=== PATIENT | female | born 1945 | race Caucasian/White ===

== ENCOUNTER 2016-08-31 19:55 | Inpatient (IN) | payer OTHER, BC ==
[~2016-08-31] VITALS: Ht 162.6 cm; Wt 63.8 kg
[~2016-08-31 19:55] MED LIST: ADVAIR DISKU1 IN; AMIODARONE HCL200 MG PO; BUMEX1 MG PO; CITRUCEL FIBER LAXAT PO; COREG3.125 MG PO; CVS OMEPRAZOLE20 MG PO; DIGITEK0.125 MG PO; DOCUSATE SODIU250 MG PO; FERROUS SULFAT324 M1 PO; IPRATROPIUM BR0.02 % IN; KLOR-CON 1010 MEQ PO; LEVALBUTEROL IN; LEVOTHYROXINE50 MCG PO; LORAZEPAM0.5 MG PO; MAG-OX 400400 MG PO; MEPERIDINE HCL50 MG PO; METOLAZONE5 MG PO; MICRO-K 10 EQU10 MEQ PO; MIRAPEX0.25 MG PO; MYRBETRIQ25 MG PO; NEURONTIN300 MG PO; NITROSTAT0.4 MG SL; OXAYDO5 MG PO; PRAVACHOL20 MG PO; PROAIR HFA IN; SPIRIVA18 MCG INH; SPIRONOLACTONE25 MG PO; SYMBICORT1 AE1 IN; TOPROL XL25 MG PO; TORSEMIDE10 MG PO; ZESTRIL2.5 MG PO; ZOLOFT100 MG PO
--- NOTE | 2016-08-31 20:58 | ED ORDER SUMMARY ---
..... Patient: ROYCE HOLLEY OrderSheet [facility] VisitID: [id number] [address] [place] [address] 71y, F Registration Date/Time: 08/31/2016 ORDER SHEET Weight: 61.2 kg (stated) Allergies: Aspirin, Ibuprofen, Tylenol GENERAL ORDERS: Dethistler Operator (Continuous) (20:27 08/31/2016 Dmitri SHRESTHA) (20:29 AMcQuoid ER Tech1) (20:29 KWilliams R.N.) Chest 1V Urgent (20:27 08/31/2016 Dmitri SHRESTHA) (20:32 Dianna) Cardiac Panel Stat (20:28 08/31/2016 Dmitri SHRESTHA) (20:29 KWilliams R.N.) PT with INR Urgent (20:08/31/2016 Dmitri SHRESTHA) (20:29 KWilliams R.N.) UA-Culture if indicated Urgent (20:28 08/31/2016 Dmitri SHRESTHA) (20:29 KWilliams R.N.) Oxygen (2 L/min) (NC) (20:28 08/31/2016 Dmitri SHRESTHA) (20:29 AMcQuoid ER Tech1) (20:29 KWilliams R.N.) Pulse oximeter (20:28 08/31/2016 Dmitri SHRESTHA) (20:29 AMcQuoid ER Tech1) (20:29 KWilliams R.N.) EKG - ER Stat (20:28 08/31/2016 Dmitri SHRESTHA) (20:29 AMcQuoid ER Tech1) (20:29 KWilliams R.N.) Type & Cross (upper GI bleed) (severe anemia) Urgent (20:42 08/31/2016 Dmitri SHRESTHA) (20:46 AMcQuoid ER Tech1) Blood Culture (No) (N/A) Urgent (21:16 08/31/2016 Nathan Mcmahon verbal order read back to Dmitri SHRESTHA) (21:22 Dianna) - (Transfuse 2 units packed RBCs.) (21:50 08/31/2016 Dmitri SHRESTHA) MEDICATION ORDERS: Albuterol Neb Tx 2.5 mg (NOW) (20:51 08/31/2016 Dmitri SHRESTHA) (20:56 Nathan R.N.) IV FLUIDS: IV NS : initial bolus 250 mL (1000 mL/hr), then 50 mL/hr (NOW) (20:28 08/31/2016 Dmitri SHRESTHA) (20:35 Nathan R.N.) IV NS : initial bolus 250 mL (1000 mL/hr), then none - for X1 (NOW) (20:50 08/31/2016 Nathan R.N. verbal order read back to Dmitri SHRESTHA) (20:51 Nathan R.N.) Rocephin IV 2 gm/50mL (NOW) (20:53 08/31/2016 Dmitri SHRESTHA) (Ack 21:00 Nathan R.N.) (21:08 Nathan R.N.) Zithromax IV 500 mg/250 mL (NOW) (20:54 08/31/2016 Dmitri SHRESTHA) (Ack 21:00 Nathan R.N.) (21:40 Nathan R.N.) ORDER SHEET NOTES: [Electronically signed by Bri Del Toro R.N. (22:29 08/31/2016)] [Electronically signed by Annmarie Gonzalez MD (04:20 09/07/2016)] [Electronically locked/signed by Bri DelT oro R.N. (22:08/31/2016)]
--- NOTE | 2016-08-31 20:58 | ED CLINICAL REPORT ---
Clinical Report - Physicians/Mid Levels [facility] [address] [place] [address] 08/31/2016 19:57 Patient: ROYCE HOLLEY Time Seen: 20:07. Arrived- By private vehicle. Historian- patient. HISTORY OF PRESENT ILLNESS Chief Complaint: WEAKNESS and NEAR-SYNCOPE. Not described as a sense of rotation, movement or falling. Described as feeling light-headed and weak all over. Described as a moderate sense of confusion (daughter reports this about pt). This started about 2 weeks ago, but worse over the past few days. and is still present. Severity described as moderate at its maximum. When seen in the E.D., severity described as moderate. Modifying factors- worsened by standing up. Relieved by rest. No nausea, vomiting, hearing loss or tinnitus. (PT reports having black stools for several days, and daughter feels the pt is pale.). Similar symptoms previously: Recent medical care: Not recently seen/assessed. REVIEW OF SYSTEMS No headache, double vision, fainting episodes, head injury or chest pain. No palpitations, numbness, bloody stools, fever or sore throat. No cough, abdominal pain, diarrhea, difficulty with urination or skin rash. No enlarged lymph nodes, chills or joint pain. The patient has had weakness, and black stools. No difficulty walking. She has had moderate difficulty breathing (chronically). All systems otherwise negative, except as recorded above. PAST HISTORY Problems: Hypoxia. Asthma. Hypothyroidism. Lifestyle / Substance Problems. Ovarian Cancer. Depression. Hypercholesterolemia. Restless Legs Syndrome. Congestive Heart Failure. Syncope. Dehydration. Substance Abuse. Hyperlipidemia. Cancer. Osteoporosis. Valvular Heart Disease. Hyponatremia. Hypertension. Anxiety Reaction. Peptic Ulcer Disease. Myocardial Infarction. Coronary Artery Disease. Immunizations. Additional Surgeries: Hysterectomy. Liver Lac repair. Shoulder Surgery. Allergies: Aspirin. Ibuprofen. Tylenol. SOCIAL HISTORY Smoker- current status unknown. Alcohol use. Patient is a recovering alcoholic. No drug use. ADDITIONAL NOTES The nursing notes have been reviewed. PHYSICAL EXAM Vital Signs: 08/31/2016 20:08 BP: 113/34. HR: 50. RR: 22. O2 saturation: 88%. Temp: 98.2 F. Have been reviewed. Appearance: Alert. No acute distress. Eyes: Pupils equal, round and reactive to light. No nystagmus. Extraocular movements normal. ENT: Normal ENT inspection. Moist mucous membranes. Neck: Normal inspection. CVS: Normal heart rate and rhythm. Heart sounds normal. Pulses normal. Respiratory: No respiratory distress. Breath sounds normal. Abdomen: Soft and nontender. Back: Normal inspection. No CVA tenderness. Rectal: Weakly heme-positive stool. (POC test reference range: negative). Skin: Skin warm and dry. Slight pallor. No rash. Normal skin turgor. Extremities: Extremities exhibit normal ROM. No lower extremity edema. Neuro: Alert. Mood/affect normal. Speech normal. Cranial nerves normal (as tested). No motor deficit. No sensory deficit. LABS, X-RAYS, AND EKG EKG: EKG time: (2020). Rate: 45. Bradycardia. Sinus bradycardia. Normal P waves. Normal AURELIANO. Normal QRS complex. Normal axis. Normal QT and QTc. Non-specific ST segment / T wave abnormalities. Changes present when compared to prior EKG. (improved from 11/15/15). The study has been interpreted contemporaneously by me. The study has been independently viewed by me. The EKG appears to be a good tracing. I agree with and confirm the computer reading of the EKG. Rhythm Strip #1: Time: (2018). Rate= 54. Sinus bradycardia. Regular rhythm. Narrow QRS complexes. No ectopy. Conduction normal. Normal ST segments and T waves. The study was interpreted by me. Chest X-ray: Medium-sized infiltrate in the left lower lobe. Consistent with pneumonia. Normal heart size. Mediastinum normal. Great vessels normal. Soft tissues normal. No fracture. No bony lesion present. Views: AP (portable). Technique: good. The X-rays were independently viewed by me and interpreted contemporaneously by me. A comparison with prior films reveals that the findings are new. Laboratory Tests: UA-Culture if indicated: (PHILIPPE: 08/31/2016 20:15) ( MsgRcvd 08/31/2016 21:02) Final results Test Result Flag Units (Reference) URINE COLOR YELLOW URINE APPEARANCE CLEAR URINE GLUCOSE NEGATIVE (NEGATIVE) URINE BILIRUBIN NEGATIVE (NEGATIVE) URINE KETONE NEGATIVE (NEGATIVE) URINE SPECIFIC GRAVITY 1.010 (1.010-1.030) URINE PH 5.5 (5.0-8.0) URINE PROTEIN NEGATIVE (NEGATIVE) URINE UROBILINOGEN 0.2 EU/dL (0.2-1.0) URINE NITRITE NEGATIVE (NEGATIVE) URINE BLOOD NEGATIVE (NEGATIVE) URINE LEUK ESTERASE NEGATIVE (NEGATIVE) URINE RBC NONE SEEN rbc/hpf (0-1) URINE WBC NONE SEEN wbc/hpf (0-1) URINE EPITHELIAL CELLS RARE EPI/hpf (0-5) URINE BACTERIA NONE SEEN (NONE SEEN) URINE COMMENT CULT NOT INDICATED 1+ AMORPHOUSURINE CULTURES ARE SET-UP BASED ON THE FOLLOWING CRITERIA:POSITIVE NITRITEPOSITIVE LEUKOCYTE ESTERASEGREATER THAN 10 WHITE BLOOD CELLSMODERATE (2+) OR GREATER BACTERIA CBC w Diff: (PHILIPPE: 08/31/2016 20:15) ( [facility] 08/31/2016 20:40) Final results Test Result Flag Units (Reference) WHITE BLOOD COUNT 13.5 H K/uL (4.5-11.5) RED BLOOD COUNT 2.39 L M/uL (4.00-5.20) HEMOGLOBIN 7.1 L gm/dL (12.0-16.0) HEMATOCRIT 21.5 L % (36.0-46.0) MEAN CELL VOLUME 90 fL (80-100) MEAN CORPUSCULAR HGB 30 pg (26-34) MEAN CORPUSCULAR HGB CONC 33 g/dL (31-37) RED CELL DISTRIBUTION WIDTH 17.3 H % (11.6-14.8) PLATELET COUNT 329 K/uL (150-400) NEUTROPHIL % 81.7 H % (50-75) LYMPH % 9.5 L % (25-40) MONO % 6.3 % (3-14) EOSINOPHIL % 2.2 % (0-4) BASOPHIL % 0.3 % (0-2) PT with INR: (PHILIPPE: 08/31/2016 20:15) ( [facility] 08/31/2016 20:53) Final results Test Result Flag Units (Reference) INR 1.1 (0.8-1.2) Low Intensity Therapy: INR 1.5-2.0 PT range 18.5-23.1Mod.Intensity Therapy: INR 2.0-3.0 PT range 23.1-31.5High Intensity Therapy: INR 2.5-3.5 PT range 27.4-35.5High Intensity Therapy 2: INR 3.0-4.0 PT range 31.5-39.3 CHEM 13 PANEL: (PHILIPPE: 08/31/2016 20:15) ( MsgRcvd 08/31/2016 20:56) Final results Test Result Flag Units (Reference) GLUCOSE 125 H mg/dL (70-110) BUN 83 *H mg/dL (7-18) CRITICAL RESULTS CALLEDCalled to CARLOS VACA RN 08/31/162053Were 2 patient identifiers used? YWas the result read back? Y CREATININE 2.6 H mg/dL (0.6-1.3) Estimated GFR 19.18 mL/min Estimated GFR- 23.24 mL/min Note: Persistent reduction over 3 months in eGFR<60 mL/min/1.73 m2 defines CKD. Patients with eGFR values>=60 mL/min/1.73 m2 may also have CKD if evidence ofpersistent proteinuria. Additional information may be foundat www.kidney.org. SODIUM 130 L mmol/L (136-145) POTASSIUM 4.3 mmol/L (3.5-5.1) CHLORIDE 93 L mmol/L (98-107) CARBON DIOXIDE 29 mmol/L (21-32) CALCIUM 8.5 mg/dL (8.5-10.1) TOTAL PROTEIN 8.3 H g/dL (6.4-8.2) ALBUMIN 2.6 L g/dL (3.3-5.0) BILIRUBIN, TOTAL 0.2 mg/dL (0.0-1.0) ALKALINE PHOSPHATASE 125 H U/L (46-116) AST (SGOT) 30 U/L (15-37) ALT (SGPT) 26 U/L (12-78) MAGNESIUM 2.1 mg/dL (1.8-2.4) CPK 254 U/L (24-260) TROPONIN I <0.05 ng/mL (0.00-1.5) TROPONIN REFERENCE RANGE:<0.1 NEGATIVE0.1-1.5 INDETERMINANT>1.5 POSITIVE . Pulse Oximetry: 08/31/2016 20:08 O2 saturation: 88%. (FIO2 - room air). Interpretation: normal. PROGRESS AND PROCEDURES Course of Care: Pt was treated for her sx, and worked up for her GI bleeding and general fatigue. She was given an albuterol neb, which did improve her breathing. She was given Rocephin and Zithromax for her pneumonia, and a blood transfusion for her severe anemia. I did feel the pt should be admitted to the hospital, and Dr. Brandon did come see her in the ED. Discussed case with patient's primary care provider, (Roma). Reviewed test results and need for additional work-up. Agreed upon treatment plan and decision to admit. Health care provider will see patient in hospital. Patient and mother counseled in person regarding the patient's stable but serious condition, test results, diagnosis and need for admission. Concerns were addressed. Old medical records reviewed. Disposition: Admitted. Condition: stable and serious. CLINICAL IMPRESSION Major GI bleed with hematochezia. Bacterial pneumonia. Vital signs recorded and reviewed; empiric antibiotics given in the ED. No respiratory failure or sepsis. Acute exacerbation of COPD. (Electronically signed by Annmarie Gonzalez MD 09/07/2016 4:20)
--- NOTE | 2016-08-31 20:58 | ED NURSING NOTES ---
Clinical Report - Nurses [facility] [address] [place] [address] 08/31/2016 19:57 Patient: ROYCE HOLLEY TRIAGE Triage time 20:08. Acuity: LEVEL 3. Chief Complaint: ALTERED MENTAL STATUS and (per family: pt. has been c/o having a hard time peeing and daughter states she seems more confused than her baseline.). Alert. No acute distress. SEPSIS SCREEN: Sepsis Screen. Negative (no infection suspected/documented). AMELIA COMA SCORE: Hamill Coma Scale: 14- eyes open spontaneously (4); best verbal response- disoriented (4); best motor response- obeys commands (6). --20:16 Bri Del Toro R.N. 20:08 08/31/16. BP: 113/34. HR: 50. RR: 22. O2 saturation: 88%. Temp: 98.2 F. Pain level now 0/10. --20:16 Bri Del Toro R.N. ( 35 min. reviewing and charting medication list.). --21:28 Bri Del Toro R.N. Weight: 61.2 kg stated. Height/Length: 63 inches Per Patient. BMI: 23.9. --20:12 Bri Del Toro R.N. Medications Acetaminophen Oral 325 mg, 2x a day as needed. --20:54 Bri Del Toro R.N. Amiodarone HCL Oral 200 mg, daily. --20:54 Bri Del Toro R.N. Albuterol Sulfate Oral, Q3-4H. --20:55 Bri Del Toro R.N. Aspirin Oral (Tablet Chewable 81 mg). --20:55 Bri Del Toro R.N. Bumetanide Oral 1 mg, 1 1/2 Q daily. --20:57 rBi Del Toro R.N. BusPIRone HCl Oral (Tablet 7.5 mg) 1 tablet, BID. --20:57 Bri Del Toro R.N. Carvedilol Oral (Tablet 3.125 mg) 1 tablet, Q12H. --20:58 Bri Del Toro R.N. Combivent Respimat Inhalation (Aerosol Solution 20-100 mcg/act) QID. --20:58 Bri Del Toro R.N. Diazepam Oral 2 mg, at bedtime. --20:58 Bri Del Toro R.N. Digoxin Oral (Tablet 125 mcg) 1 tablet, daily. --20:58 Bri Del Toro R.N. Ferrous Sulfate Oral 325 mg, daily. --20:59 Bri Del Toro R.N. Furosemide Oral 40 mg, daily. --20:59 Bir Del Toro R.N. Gabapentin Oral 300 mg, QID. --20:59 Bri Del Toro R.N. Levothyroxine Sodium Oral (Tablet 50 mcg) 1 tablet, daily. --21:12 Bri Del Toro R.N. Lisinopril Oral 5 mg, Q12H. --21:12 Bri Del Toro R.N. Magnesium Oxide Oral (Tablet 400 mg) 1 tablet, BID. --21:13 Bri Del Toro R.N. Metolazone Oral 2.5 mg, Q mornings: mon, mon, . --21:13 Bri Del Toro R.N. Metoprolol Succinate ER Oral 25mg BID. --21:14 Bri Del Toro R.N. Metoprolol Tartrate Oral 50 mg, 2-3 times daily. --21:14 Bri Del Toro R.N. Omeprazole Oral 40 mg, daily. --21:14 Bri Del Toro R.N. OxyCODONE HCl Oral 5 mg, noon, 4pm and 2 tabs at bedtime. --21:20 Bri Del Toro R.N. Potassium Chloride ER Oral (Capsule Extended Release 10 meq) 1 capsule, on mon, mon, monday. --21:24 Bri Del Toro R.N. pramipexole 0.5mg x1 tab three times daily. --21:24 Bri Del Toro R.N. Pravastatin Sodium Oral 20 mg, at bedtime. --21:24 Bri Del Toro R.N. ProAir HFA Inhalation. --21:24 Bri Del Toro R.N. Sertraline HCl Oral 100 mg 1 1/2 daily. --:25 Bri Del Toro R.N. Spiriva HandiHaler Inhalation. --21:26 Bri Del Toro R.N. Spironolactone Oral 25 mg. --:26 Bri Del Toro R.N. Symbicort Inhalation. --21: Bri Del Toro R.N. Torsemide Oral 20 mg x2 tabs daily. --: Bri Del Toro R.N. Vitamin D. --:27 Bri Del Toro R.N. Allergies Aspirin. Ibuprofen. Tylenol. --20:15 Bri Del Toro R.N. History Arrived by private vehicle. Historian: patient. Accompanied by family. Primary physician (Roma). This started yesterday. 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 PAST MEDICAL HX: Immunizations: up-to-date. SOCIAL HX: Light tobacco smoker (cigarette)- less than 1/2 a pack per day. Alcohol use. Patient is a recovering alcoholic. No drug use. ABUSE ASSESSMENT: No report of abuse. NUTRITIONAL RISK ASSESSMENT: The nutritional risk assessment revealed no deficiencies. LEARNING NEEDS ASSESSMENT: The learning needs assessment revealed no barriers. FUNCTIONAL ASSESSMENT: Functional assessment performed: requires total care with the activities of daily living; uses walker and cane; cognitive impairment- senile dementia. --20:16 Bri Del Toro R.N. PROBLEMS: Hypoxia. Asthma. Hypothyroidism. Lifestyle / Substance Problems. Headaches. Ovarian Cancer. Depression. Hypercholesterolemia. Restless Legs Syndrome. Congestive Heart Failure. Syncope. Dehydration. Substance Abuse. Hyperlipidemia. Cancer. Osteoporosis. Valvular Heart Disease. UTI - Urinary Tract Infection. Anemia. Hyponatremia. Hypertension. Anxiety Reaction. Peptic Ulcer Disease. Myocardial Infarction. Coronary Artery Disease. Lumbar Strain. Fall. Bronchitis. --20:15 Bri Del Toro R.N. ADDITIONAL SURGERIES: Hysterectomy. Liver Lac repair. Shoulder Surgery. --20:15 Bri Del Toro R.N. Interventions ID band on patient. Transported via wheelchair. --20:16 Bri Del Toro R.N. PHYSICAL ASSESSMENT To room via wheelchair. GENERAL / NEURO / PSYCH: Alert. The patient is disoriented (pt. is alert but confused.). RESPIRATORY: Respirations not labored. CVS: Capillary refill less than 2 seconds. SKIN: Skin is pale. Skin is warm and dry. --20:16 Bri Del Toro R.N. NURSING PROGRESS NOTES Oxygen administered by nasal cannula at 2 liters. quality assurance monitor final, pulse oximeter and NIBP monitor placed on patient; cardiac technician- Lead II; monitor alarms on. Patient gowned. Head of bed elevated. Two patient identifiers checked. Call light placed in reach. Side rails up x 2. Bed placed in lowest position. Brakes of bed on. Patient ready for evaluation- chart flagged. --20:16 Bri Del Toro R.N. Portable chest x-ray ordered, performed and shown to the ED physician. --20:33 Bri Del Toro R.N. 20:35 08/31/2016 Site #1 started via IV in the left antecubital space with an 20g angiocath, with aseptic technique and good blood return; one attempt. Blood drawn: rainbow set. Labeled in the presence of the patient and sent to the lab. Saline lock flushed with 10 mL saline (pt. blood banded. Accessed done by FRANCESCA Fenton). --20:35 Bri Del Toro R.N. 20:35 08/31/2016 Started bag #1 1000 mL IV Fluids IV NS (Saline); at 1000 mL/hr over 15 minute(s) via site #1 via IV pump. Allergies verified and confirmed 5 rights. IV patency established. IV site checked: no pain, redness, or swelling. IV flushed thoroughly pre- and post-medication administration. --20:35 Bri Del Toro R.N. EKG time: (2020). EKG was ordered, performed by a tech and shown to the ED physician. --20:35 Bri Del Toro R.N. 20:50 08/31/2016 Started bag #1 750 mL IV Fluids IV NS (Saline); at 1000 mL/hr over 15 minute(s) via site #1 via IV pump. Allergies verified and confirmed 5 rights. IV patency established. IV site checked: no pain, redness, or swelling. IV flushed thoroughly pre- and post-medication administration. --20:51 Bri Del Toro R.N. 20:50 08/31/2016 IV Fluids IV NS Discontinued: bag #1. Total amount infused: 250 mL. IV patency established. IV site checked: no pain, redness, or swelling. IV flushed thoroughly. --20:50 Bri Del Toro R.N. Critical value relayed to ED by hatchery laborer. Critical value received by Bri Helton RN. BUN: 83. Critical value read back. Verified lab result and patient ID. Patient ID band checked for patient name, birthdate and medical record number: patient confirmed. ED physician notifed of critical value. --20:56 Bri Del Toro R.N. 20:56 08/31/2016 Albuterol Neb TX 2.5 mg given. Given by the respiratory therapist. Allergies verified and confirmed 5 rights. --20:56 Bri Del Toro R.N. 21:08 08/31/2016 Started 2 gm of Rocephin (CefTRIAXone Sodium) IVPB in bag #1 50 mL; at 150 mL/hr over 20 minute(s) via site #1 via IV pump. Allergies verified and confirmed 5 rights. IV patency established. IV site checked: no pain, redness, or swelling. IV flushed thoroughly pre- and post-medication administration. --21:08 Bri Del Toro R.N. ( lab at the bedside for culture draw.). --21:28 rBi Del Toro R.N. 21:40 08/31/2016 Started 500 mg of Zithromax (Azithromycin) IVPB in bag #1 250 mL; at 255 mL/hr over 1 hour(s) via site #1 via IV pump. Allergies verified and confirmed 5 rights. IV patency established. IV site checked: no pain, redness, or swelling. IV flushed thoroughly pre- and post-medication administration. --21:40 Bri Del oTro R.N. 21:40 08/31/16. BP: 102/46. HR: 45. RR: 17. O2 saturation: 97%. --21:40 Bri Del Toro R.N. 22:17 08/31/2016 IV Fluids IV NS Discontinued: bag #1 infused. Total amount infused: 500 mL. IV patency established. IV site checked: no pain, redness, or swelling. IV flushed thoroughly. --22:17 Bri Del Toro R.N. 22:18 08/31/2016 Zithromax IVPB Continued: upon admission at the rate of 255 mL/hr. 100 mL remaining. IV patency established. IV site checked: no pain, redness, or swelling. IV flushed thoroughly. --22:18 Bri Del Toro R.N. DISPOSITION / DISCHARGE Report was given to a nurse via a phone call. Report included patient's care, treatment, medications, reviewed medication reconcilliation, and condition (including any recent changes or anticipated changes). All questions were answered. --22:12 Bri Del Toro R.N. Admitted to Acute Care. --22:12 Bri Del Toro R.N. Patient's personal items; items were placed in belongings bag, given to the patient and transported with the patient. --22:12 Bri Del Toro R.N. 22:15 08/31/16. BP: 98/37. HR: 46. RR: 17. O2 saturation: 9%. Temp: 98.2 F. Pain level now 0/10. --22:18 Bri Del Toro R.N. Departure time: 22:18. --22:18 Bri Del Toro R.N. 22:18 08/31/16. O2 saturation: 97%. --22:18 Bri Del Toro R.N. Locked/Released at 08/31/2016 22:29 by Bri Del Toro R.N.
--- NOTE | 2016-08-31 20:58 | ED ORDER SUMMARY ---
..... Patient: ROYCE HOLLEY OrderSheet [facility] VisitID: [id number] [address] [place] [address] 71y, F Registration Date/Time: 08/31/2016 ORDER SHEET Weight: 61.2 kg (stated) Allergies: Aspirin, Ibuprofen, Tylenol GENERAL ORDERS: Cancer Center Director (Continuous) (20:27 08/31/2016 Dmitri SHRESTHA) (20:29 AMcQuoid ER Tech1) (20:29 KWilliams R.N.) Chest 1V Urgent (20:27 08/31/2016 Dmitri SHRESTHA) (20:32 Dianna) Cardiac Panel Stat (20:28 08/31/2016 Dmitri SHRESTHA) (20:29 KWilliams R.N.) PT with INR Urgent (20:08/31/2016 Dmitri SHRESTHA) (20:29 KWilliams R.N.) UA-Culture if indicated Urgent (20:28 08/31/2016 Dmitri SHRESTHA) (20:29 KWilliams R.N.) Oxygen (2 L/min) (NC) (20:28 08/31/2016 Dmitri SHRESTHA) (20:29 AMcQuoid ER Tech1) (20:29 KWilliams R.N.) Pulse oximeter (20:28 08/31/2016 Dmitri SHRESTHA) (20:29 AMcQuoid ER Tech1) (20:29 KWilliams R.N.) EKG - ER Stat (20:28 08/31/2016 Dmitri SHRESTHA) (20:29 AMcQuoid ER Tech1) (20:29 KWilliams R.N.) Type & Cross (upper GI bleed) (severe anemia) Urgent (20:42 08/31/2016 Dmitri SHRESTHA) (20:46 AMcQuoid ER Tech1) Blood Culture (No) (N/A) Urgent (21:16 08/31/2016 Nathan Mcmahon verbal order read back to Dmitri SHRESTHA) (21:22 Dianna) - (Transfuse 2 units packed RBCs.) (21:50 08/31/2016 Dmitri SHRESTHA) MEDICATION ORDERS: Albuterol Neb Tx 2.5 mg (NOW) (20:51 08/31/2016 Dmitri SHRESTHA) (20:56 Nathan R.N.) IV FLUIDS: IV NS : initial bolus 250 mL (1000 mL/hr), then 50 mL/hr (NOW) (20:28 08/31/2016 Dmitri SHRESTHA) (20:35 Nathan R.N.) IV NS : initial bolus 250 mL (1000 mL/hr), then none - for X1 (NOW) (20:50 08/31/2016 Nathan R.N. verbal order read back to Dmitri SHRESTHA) (20:51 Nathan R.N.) Rocephin IV 2 gm/50mL (NOW) (20:53 08/31/2016 Dmitri SHRESTHA) (Ack 21:00 Nathan R.N.) (21:08 Nathan R.N.) Zithromax IV 500 mg/250 mL (NOW) (20:54 08/31/2016 Dmitri SHRESTHA) (Ack 21:00 Nathan R.N.) (21:40 Nathan R.N.) ORDER SHEET NOTES: [Electronically signed by Bri Del Toro R.N. (22:29 08/31/2016)] [Electronically signed by Annmarie Gonzalez MD (04:20 09/07/2016)] [Electronically locked/signed by Bri eDl Toro R.N. (22:08/31/2016)]
--- NOTE | 2016-08-31 20:58 | ED NURSING NOTES ---
Clinical Report - Nurses [facility] [address] [place] [address] 08/31/2016 19:57 Patient: ROYCE HOLLEY TRIAGE Triage time 20:08. Acuity: LEVEL 3. Chief Complaint: ALTERED MENTAL STATUS and (per family: pt. has been c/o having a hard time peeing and daughter states she seems more confused than her baseline.). Alert. No acute distress. SEPSIS SCREEN: Sepsis Screen. Negative (no infection suspected/documented). AMELIA COMA SCORE: [place] Coma Scale: 14- eyes open spontaneously (4); best verbal response- disoriented (4); best motor response- obeys commands (6). --20:16 Bri Del Toro R.N. 20:08 08/31/16. BP: 113/34. HR: 50. RR: 22. O2 saturation: 88%. Temp: 98.2 F. Pain level now 0/10. --20:16 Bri Del Toro R.N. ( 35 min. reviewing and charting medication list.). --21:28 Bri Del Toro R.N. Weight: 61.2 kg stated. Height/Length: 63 inches Per Patient. BMI: 23.9. --20:12 Bri Del Toro R.N. Medications Acetaminophen Oral 325 mg, 2x a day as needed. --20:54 Bri Del Toro R.N. Amiodarone HCL Oral 200 mg, daily. --20:54 Bri Del Toro R.N. Albuterol Sulfate Oral, Q3-4H. --20:55 Bri Del Toro R.N. Aspirin Oral (Tablet Chewable 81 mg). --20:55 Bri Del Toro R.N. Bumetanide Oral 1 mg, 1 1/2 Q daily. --20:57 Bri Del Toro R.N. BusPIRone HCl Oral (Tablet 7.5 mg) 1 tablet, BID. --20:57 Bri Del Toro R.N. Carvedilol Oral (Tablet 3.125 mg) 1 tablet, Q12H. --20:58 Bri Del Toro R.N. Combivent Respimat Inhalation (Aerosol Solution 20-100 mcg/act) QID. --20:58 Bri Del Toro R.N. Diazepam Oral 2 mg, at bedtime. --20:58 Bri Del Toro R.N. Digoxin Oral (Tablet 125 mcg) 1 tablet, daily. --20:58 Bri Del Toro R.N. Ferrous Sulfate Oral 325 mg, daily. --20:59 Bri Del Toro R.N. Furosemide Oral 40 mg, daily. --20:59 Bri Del Toro R.N. Gabapentin Oral 300 mg, QID. --20:59 Bri Del Toro R.N. Levothyroxine Sodium Oral (Tablet 50 mcg) 1 tablet, daily. --21:12 Bri Del Toro R.N. Lisinopril Oral 5 mg, Q12H. --21:12 Bri Del Toro R.N. Magnesium Oxide Oral (Tablet 400 mg) 1 tablet, BID. --21:13 Bri Del Toro R.N. Metolazone Oral 2.5 mg, Q mornings: mon, mon, . --21:13 Bri Del Toro R.N. Metoprolol Succinate ER Oral 25mg BID. --21:14 Bri Del Toro R.N. Metoprolol Tartrate Oral 50 mg, 2-3 times daily. --21:14 Bri Del Toro R.N. Omeprazole Oral 40 mg, daily. --21:14 Bri Del Toro R.N. OxyCODONE HCl Oral 5 mg, noon, 4pm and 2 tabs at bedtime. --21:20 Bri Del Toro R.N. Potassium Chloride ER Oral (Capsule Extended Release 10 meq) 1 capsule, on mon, mon, monday. --21:24 Bri Del Toro R.N. pramipexole 0.5mg x1 tab three times daily. --21:24 Bri Del Toro R.N. Pravastatin Sodium Oral 20 mg, at bedtime. --21:24 Bri Del Toro R.N. ProAir HFA Inhalation. --21:24 Bri Del Toro R.N. Sertraline HCl Oral 100 mg 1 1/2 daily. --:25 Bri Del Toro R.N. Spiriva HandiHaler Inhalation. --21:26 Bri Del Toro R.N. Spironolactone Oral 25 mg. --:26 Bri Del Toro R.N. Symbicort Inhalation. --21: Bri Del Toro R.N. Torsemide Oral 20 mg x2 tabs daily. --: Bri Del Toro R.N. Vitamin D. --:27 Bri Del Toro R.N. Allergies Aspirin. Ibuprofen. Tylenol. --20:15 Bri Del Toro R.N. History Arrived by private vehicle. Historian: patient. Accompanied by family. Primary physician (Roma). This started yesterday. Treatment PRESS HAND: None. PAST MEDICAL HX: Immunizations: up-to-date. SOCIAL HX: Light tobacco smoker (cigarette)- less than 1/2 a pack per day. Alcohol use. Patient is a recovering alcoholic. No drug use. ABUSE ASSESSMENT: No report of abuse. NUTRITIONAL RISK ASSESSMENT: The nutritional risk assessment revealed no deficiencies. LEARNING NEEDS ASSESSMENT: The learning needs assessment revealed no barriers. FUNCTIONAL ASSESSMENT: Functional assessment performed: requires total care with the activities of daily living; uses walker and cane; cognitive impairment- senile dementia. --20:16 Bri Del Toro R.N. PROBLEMS: Hypoxia. Asthma. Hypothyroidism. Lifestyle / Substance Problems. Headaches. Ovarian Cancer. Depression. Hypercholesterolemia. Restless Legs Syndrome. Congestive Heart Failure. Syncope. Dehydration. Substance Abuse. Hyperlipidemia. Cancer. Osteoporosis. Valvular Heart Disease. UTI - Urinary Tract Infection. Anemia. Hyponatremia. Hypertension. Anxiety Reaction. Peptic Ulcer Disease. Myocardial Infarction. Coronary Artery Disease. Lumbar Strain. Fall. Bronchitis. --20:15 Bri Del Toro R.N. ADDITIONAL SURGERIES: Hysterectomy. Liver Lac repair. Shoulder Surgery. --20:15 Bri Del Toro R.N. Interventions ID band on patient. Transported via wheelchair. --20:16 Bri Del Toro R.N. PHYSICAL ASSESSMENT To room via wheelchair. GENERAL / NEURO / PSYCH: Alert. The patient is disoriented (pt. is alert but confused.). RESPIRATORY: Respirations not labored. CVS: Capillary refill less than 2 seconds. SKIN: Skin is pale. Skin is warm and dry. --20:16 Bri Del Toro R.N. NURSING PROGRESS NOTES Oxygen administered by nasal cannula at 2 liters. monitoring specialist, pulse oximeter and NIBP monitor placed on patient; monitor and storage bin tender- Lead II; monitor alarms on. Patient gowned. Head of bed elevated. Two patient identifiers checked. Call light placed in reach. Side rails up x 2. Bed placed in lowest position. Brakes of bed on. Patient ready for evaluation- chart flagged. --20:16 Bri Del Toro R.N. Portable chest x-ray ordered, performed and shown to the ED physician. --20:33 Bri Del Toro R.N. 20:35 08/31/2016 Site #1 started via IV in the left antecubital space with an 20g angiocath, with aseptic technique and good blood return; one attempt. Blood drawn: rainbow set. Labeled in the presence of the patient and sent to the lab. Saline lock flushed with 10 mL saline (pt. blood banded. Accessed done by FRANCESCA Fenton). --20:35 Bri Del Toro R.N. 20:35 08/31/2016 Started bag #1 1000 mL IV Fluids IV NS (Saline); at 1000 mL/hr over 15 minute(s) via site #1 via IV pump. Allergies verified and confirmed 5 rights. IV patency established. IV site checked: no pain, redness, or swelling. IV flushed thoroughly pre- and post-medication administration. --20:35 Bri Del Toro R.N. EKG time: (2020). EKG was ordered, performed by a tech and shown to the ED physician. --20:35 Bri Del Toro R.N. 20:50 08/31/2016 Started bag #1 750 mL IV Fluids IV NS (Saline); at 1000 mL/hr over 15 minute(s) via site #1 via IV pump. Allergies verified and confirmed 5 rights. IV patency established. IV site checked: no pain, redness, or swelling. IV flushed thoroughly pre- and post-medication administration. --20:51 Bri Del Toro R.N. 20:50 08/31/2016 IV Fluids IV NS Discontinued: bag #1. Total amount infused: 250 mL. IV patency established. IV site checked: no pain, redness, or swelling. IV flushed thoroughly. --20:50 Bri Del Toro R.N. Critical value relayed to ED by general laborer. Critical value received by Bri Helton RN. BUN: 83. Critical value read back. Verified lab result and patient ID. Patient ID band checked for patient name, birthdate and medical record number: patient confirmed. ED physician notifed of critical value. --20:56 Bri Del Toro R.N. 20:56 08/31/2016 Albuterol Neb TX 2.5 mg given. Given by the respiratory therapist. Allergies verified and confirmed 5 rights. --20:56 Bri Del Toro R.N. 21:08 08/31/2016 Started 2 gm of Rocephin (CefTRIAXone Sodium) IVPB in bag #1 50 mL; at 150 mL/hr over 20 minute(s) via site #1 via IV pump. Allergies verified and confirmed 5 rights. IV patency established. IV site checked: no pain, redness, or swelling. IV flushed thoroughly pre- and post-medication administration. --21:08 Bri Del Toro R.N. ( lab at the bedside for culture draw.). --21:28 Bri Del Toro R.N. 21:40 08/31/2016 Started 500 mg of Zithromax (Azithromycin) IVPB in bag #1 250 mL; at 255 mL/hr over 1 hour(s) via site #1 via IV pump. Allergies verified and confirmed 5 rights. IV patency established. IV site checked: no pain, redness, or swelling. IV flushed thoroughly pre- and post-medication administration. --21:40 Bri Del Toro R.N. 21:40 08/31/16. BP: 102/46. HR: 45. RR: 17. O2 saturation: 97%. --21:40 Bri Del Toro R.N. 22:17 08/31/2016 IV Fluids IV NS Discontinued: bag #1 infused. Total amount infused: 500 mL. IV patency established. IV site checked: no pain, redness, or swelling. IV flushed thoroughly. --22:17 Bri Del Toro R.N. 22:18 08/31/2016 Zithromax IVPB Continued: upon admission at the rate of 255 mL/hr. 100 mL remaining. IV patency established. IV site checked: no pain, redness, or swelling. IV flushed thoroughly. --22:18 Bri Del Toro R.N. DISPOSITION / DISCHARGE Report was given to a nurse via a phone call. Report included patient's care, treatment, medications, reviewed medication reconcilliation, and condition (including any recent changes or anticipated changes). All questions were answered. --22:12 Bri Del Toro R.N. Admitted to Acute Care. --22:12 Bri Del Toro R.N. Patient's personal items; items were placed in belongings bag, given to the patient and transported with the patient. --22:12 Bri Del Toro R.N. 22:15 08/31/16. BP: 98/37. HR: 46. RR: 17. O2 saturation: 9%. Temp: 98.2 F. Pain level now 0/10. --22:18 Bri Del Toro R.N. Departure time: 22:18. --22:18 Bri Del Toro R.N. 22:18 08/31/16. O2 saturation: 97%. --22:18 Bri Del Toro R.N. Locked/Released at 08/31/2016 22:29 by Bri Del Toro R.N.
--- NOTE | 2016-08-31 22:14 | DIAGNOSTIC IMAGING REPORT ---
PROCEDURE: XR CHEST 1 VIEW INDICATION: SHORTNESS OF BREATH TECHNIQUE: Portable AP view (2039 hours). COMPARISON: Compared to chest x-ray on 11/24/2015. FINDINGS: Allowing for marked suboptimal inspiration, there is moderate of bibasilar consolidation/pneumonia. Upper lungs are clear. Heart and mediastinum are normal. Thorax is unchanged. IMPRESSION: 1. Suboptimal inspiration. 2. Moderate bibasilar atelectasis/pneumonia. (e.g., aspiration, bacterial).
[2016-08-31] MEDS ORDERED: TYLENOL325 MG PO (22:58)
[2016-08-31] MEDS ORDERED: AMIODARONE HCL200 MG PO (22:59)
[2016-08-31] MEDS ORDERED: ALBUTEROL HFA60 DOSE IN (22:59)
[2016-08-31] MEDS ORDERED: ASPIRIN ADULT L81 MG PO (23:00)
[2016-08-31] MEDS ORDERED: BUSPIRONE HCL7.5 MG PO (23:00)
[2016-08-31] MEDS ORDERED: DIAZEPAM2 MG PO (23:02)
[2016-08-31] MEDS ORDERED: FUROSEMIDE40 MG PO (23:02)
[2016-08-31 23:11] VITALS: BP 108/46
[2016-08-31 23:29] VITALS: BP 104/46
[2016-08-31] MEDS ORDERED: METOPROLOL SUCC25 MG PO (23:44)
[2016-08-31 23:45] VITALS: BP 102/40
[2016-08-31] MEDS ORDERED: LOPRESSOR50 MG PO (23:45)
[2016-08-31] MEDS ORDERED: OXAYDO5 MG PO ×2 (23:47→23:48)
[2016-08-31] MEDS ORDERED: ALDACTONE25 MG PO (23:48)
[2016-08-31] MEDS ORDERED: PROAIR HFA IN (23:48)
[2016-08-31] MEDS ORDERED: SPIRIVA18 MCG INH (23:48)
[2016-08-31] MEDS ORDERED: DEMADEX10 MG PO (23:49)
[2016-08-31] MEDS ORDERED: SYMBICORT1 AE1 (23:49)
[2016-08-31] MEDS ORDERED: VITAMIN D1000 UNIT PO (23:50)
[2016-09-01] VITALS (22 sets, daily range): BP systolic 105–143; BP diastolic 41–67
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
[2016-09-02] VITALS (7 sets, daily range): BP systolic 120–153; BP diastolic 38–60
[2016-09-03 02:55] VITALS: BP 142/44
[2016-09-03 05:20] VITALS: BP 132/50
[2016-09-03 10:43] VITALS: BP 129/51
[2016-09-03 14:04] VITALS: BP 146/62
[2016-09-03 17:00] VITALS: BP 171/69
[2016-09-03 20:22] VITALS: BP 179/79
[2016-09-04 01:25] VITALS: BP 136/61
[2016-09-04 06:42] VITALS: BP 131/54
--- NOTE | 2016-09-04 07:17 | DIAGNOSTIC IMAGING REPORT ---
PROCEDURE: XR CHEST 1 VIEW INDICATION: Follow up pneumonia. TECHNIQUE: Portable AP view (0535 hours). COMPARISON: Compared to chest x-ray on 08/31/2016. FINDINGS: Allowing for suboptimal inspiration, there has been interval development of moderate pulmonary edema with mild cardiomegaly. There is persistent bilateral pneumonia. Mediastinum is normal. Thorax is unchanged. IMPRESSION: 1. Persistent moderate bilateral pneumonia. 2. Development of moderate pulmonary edema and cardiomegaly consistent with congestive failure or increased fluid status.
[2016-09-04 10:23] VITALS: BP 128/56
[2016-09-04 14:32] VITALS: BP 148/54
[2016-09-04 17:50] VITALS: BP 103/36
[2016-09-04 23:06] VITALS: BP 149/51
[2016-09-05] VITALS (7 sets, daily range): BP systolic 106–150; BP diastolic 38–57
[2016-09-06 02:41] VITALS: BP 170/64
[2016-09-06 06:46] VITALS: BP 130/36
--- NOTE | 2016-09-06 07:53 | DIAGNOSTIC IMAGING REPORT ---
PROCEDURE: XR CHEST 2 VIEW INDICATION: recheck CHF and pneumonia TECHNIQUE: Two views. COMPARISON: 09/04/2016 FINDINGS: The heart size is enlarged, stable. Decreased central vascular congestion with mild persistent prominence of central vessels. Diffuse interstitial thickening and fissural thickening, less severe compared to the previous study. Improved aeration in the infrahilar regions, particularly left. Residual atelectatic changes and small bilateral pleural effusions are present. Stable osseous structures. IMPRESSION: 1. Decreased severity of central venous congestion and edema. 2. Residual interstitial and pleural fluid. 3. Improved left lung base aeration/resolving pneumonia.
[2016-09-06 11:22] VITALS: BP 150/53
--- NOTE | 2016-09-06 14:12 | DIAGNOSTIC IMAGING REPORT ---
PROCEDURE: 2-D M-mode echo CLINICAL INDICATION: CHF TECHNIQUE: Standard 2-D M-mode echo Doppler technique. COMPARISON: Report not available. FINDINGS: The aortic valve exhibits calcification. Normal appearing amplitude ;valve area is normal and study is consistent with aortic sclerosis no stenosis no aortic insufficiency is apparent. The mitral valve exhibits severe mitral annular calcification with one plus MR. Mitral stenosis is also present with a peak gradient of 16 and a mean gradient of five compatible with moderate mitral stenosis. The tricuspid valve exhibits one to 2+ TR with RVSP 39 pulmonic valve is normal. Ventricular dimension is normal LVH is present LV function is preserved with an EF of 75% with normal contraction. RVE is present left and right atrial enlargement is present. RV function is normal RV systolic pressure is elevated at 39 mmHg. No abnormalities of the aortic order pericardium appreciated. IMPRESSION: Moderate mitral stenosis peak gradient 16 mean gradient five 1+ MR One to 2+ TR with RVSP 39 LVH Biatrial enlargement Ejection fraction 70% with normal contraction Aortic sclerosis no stenosis RVE Elevated RV systolic pressure 39 m
[2016-09-06 14:28] VITALS: BP 112/41
[2016-09-06 18:09] VITALS: BP 110/46
[2016-09-06 23:07] VITALS: BP 148/56
[2016-09-07 04:06] VITALS: BP 125/43
--- NOTE | 2016-09-07 04:20 | ED DISCHARGE INSTRUCTIONS ---
Patient: ROYCE HOLLEY General Instructions [facility] VisitID: [id number] [address] [place] [address] 71y, F Registration Date/Time: 08/31/2016 Major GI bleed with hematochezia. Bacterial pneumonia. Vital signs recorded and reviewed; empiric antibiotics given in the ED. No respiratory failure or sepsis. Acute exacerbation of COPD. (Electronically signed by Annmarie Gonzalez MD 09/07/2016 4:20)
--- NOTE | 2016-09-07 04:20 | ED MAR SUMMARY ---
..... Medication Administration Record [facility] [address] [place] [address] Patient: ROYCE HOLLEY Visit ID: [id number] 71y, F Weight: 61.2 kg Height/Length: 63 in BMI: 23.9 ALLERGIES: Aspirin, Ibuprofen, Tylenol Start 20:35 08/31/2016 Bri Del Toro R.N., Stop 20:50 08/31/2016 Bri Del Toro R.N. Medication Administered: IV NS (SALINE), Dose: IV Fluids over 15 minute(s), Rate: 1000 mL/hr, Dispensed: 1000 mL bag, Site: #1 left AC. Medication Ordered: IV NS : initial bolus 250 mL (1000 mL/hr), then 50 mL/hr (NOW). Start 20:50 08/31/2016 Bri Del Toro R.N., Stop 22:17 08/31/2016 Bri Del Toro R.N. Medication Administered: IV NS (SALINE), Dose: IV Fluids over 15 minute(s), Rate: 1000 mL/hr, Dispensed: 750 mL bag, Site: #1 left AC. Medication Ordered: IV NS : initial bolus 250 mL (1000 mL/hr), then none - for X1 (NOW). Given 20:56 08/31/2016 Bri Del Toro R.N. Medication Administered: ALBUTEROL [NEB TX], Dose: 2.5 mg Neb TX. Medication Ordered: Albuterol Neb Tx 2.5 mg (NOW). Start 21:08 08/31/2016 Bri Del Toro R.N. Medication Administered: ROCEPHIN [IVPB] (CEFTRIAXONE SODIUM), Dose: 2 gm IVPB over 20 minute(s), Rate: 150 mL/hr, Dispensed: 50 mL bag, Site: #1 left AC. Medication Ordered: Rocephin IV 2 gm/50mL (NOW). Start 21:40 08/31/2016 Bri Del Toro R.N., Continued Upon Admission 22:18 08/31/2016 Bri Del Toro R.N. Medication Administered: ZITHROMAX [IVPB] (AZITHROMYCIN), Dose: 500 mg IVPB over 1 hour(s), Rate: 255 mL/hr, Dispensed: 250 mL bag, Site: #1 left AC. Medication Ordered: Zithromax IV 500 mg/250 mL (NOW).
--- NOTE | 2016-09-07 04:20 | ED MED RECONCILIATION SUMMARY ---
Patient: ROYCE HOLLEY Medication Reconciliation Report [facility] VisitID: [id number] [address] [place] [address] 71y, F Registration Date/Time: 08/31/2016 Weight: 61.2 kg Height/Length: 63 in. BMI: 23.9 ALLERGIES: Aspirin, Ibuprofen, Tylenol The patient's Home Medications are listed below: THE FOLLOWING MEDICATIONS NEED TO BE RECONCILED: Acetaminophen Oral 325 mg, 2x a day Albuterol Sulfate Oral, Q3-4H Amiodarone HCL Oral 200 mg, daily Aspirin Oral (81 mg) Bumetanide Oral 1 mg, 1 1/2 Q daily BusPIRone HCl Oral (7.5 mg) 1 tablet, BID Carvedilol Oral (3.125 mg) 1 tablet, Q12H Combivent Respimat Inhalation (20-100 mcg/act) QID Diazepam Oral 2 mg, at bedtime Digoxin Oral (125 mcg) 1 tablet, daily Ferrous Sulfate Oral 325 mg, daily Furosemide Oral 40 mg, daily Gabapentin Oral 300 mg, QID Levothyroxine Sodium Oral (50 mcg) 1 tablet, daily Lisinopril Oral 5 mg, Q12H Magnesium Oxide Oral (400 mg) 1 tablet, BID Metolazone Oral 2.5 mg, Q mornings: mon, mon, Metoprolol Succinate ER Oral 25mg BID Metoprolol Tartrate Oral 50 mg, 2-3 times daily Omeprazole Oral 40 mg, daily OxyCODONE HCl Oral 5 mg, noon, 4pm and 2 tabs at bedtime Potassium Chloride ER Oral (10 meq) 1 capsule, on mon, mon, monday pramipexole 0.5mg x1 tab three times daily Pravastatin Sodium Oral 20 mg, at bedtime ProAir HFA Inhalation Sertraline HCl Oral 100 mg 1 1/2 daily Spiriva HandiHaler Inhalation Spironolactone Oral 25 mg Symbicort Inhalation Torsemide Oral 20 mg x2 tabs daily Vitamin D The source(s) of the original Home Medication information: Not obtained. The following Medications were given to the patient in the Emergency Department: IV NS IV Fluids bolus 0, then 1000 mL/hr, administered: 08/31/2016 8:35:00 PM IV NS IV Fluids bolus 0, then 1000 mL/hr, administered: 08/31/2016 8:50:00 PM Albuterol [Neb Tx] Neb TX 2.5 mg, administered: 08/31/2016 8:56:00 PM Rocephin [IVPB] IVPB bolus 0, then 2 gm 150 mL/hr, administered: 08/31/2016 9:08:00 PM Zithromax [IVPB] IVPB bolus 0, then 500 mg 255 mL/hr, administered: 08/31/2016 9:40:00 PM The following Medications were prescribed to the patient: None.
--- NOTE | 2016-09-07 04:20 | ED MED RECONCILIATION SUMMARY ---
Patient: ROYCE HOLLEY Medication Reconciliation Report [facility] VisitID: [id number] [address] [place] [address] 71y, F Registration Date/Time: 08/31/2016 Weight: 61.2 kg Height/Length: 63 in. BMI: 23.9 ALLERGIES: Aspirin, Ibuprofen, Tylenol The patient's Home Medications are listed below: THE FOLLOWING MEDICATIONS NEED TO BE RECONCILED: Acetaminophen Oral 325 mg, 2x a day Albuterol Sulfate Oral, Q3-4H Amiodarone HCL Oral 200 mg, daily Aspirin Oral (81 mg) Bumetanide Oral 1 mg, 1 1/2 Q daily BusPIRone HCl Oral (7.5 mg) 1 tablet, BID Carvedilol Oral (3.125 mg) 1 tablet, Q12H Combivent Respimat Inhalation (20-100 mcg/act) QID Diazepam Oral 2 mg, at bedtime Digoxin Oral (125 mcg) 1 tablet, daily Ferrous Sulfate Oral 325 mg, daily Furosemide Oral 40 mg, daily Gabapentin Oral 300 mg, QID Levothyroxine Sodium Oral (50 mcg) 1 tablet, daily Lisinopril Oral 5 mg, Q12H Magnesium Oxide Oral (400 mg) 1 tablet, BID Metolazone Oral 2.5 mg, Q mornings: mon, mon, Metoprolol Succinate ER Oral 25mg BID Metoprolol Tartrate Oral 50 mg, 2-3 times daily Omeprazole Oral 40 mg, daily OxyCODONE HCl Oral 5 mg, noon, 4pm and 2 tabs at bedtime Potassium Chloride ER Oral (10 meq) 1 capsule, on mon, mon, monday pramipexole 0.5mg x1 tab three times daily Pravastatin Sodium Oral 20 mg, at bedtime ProAir HFA Inhalation Sertraline HCl Oral 100 mg 1 1/2 daily Spiriva HandiHaler Inhalation Spironolactone Oral 25 mg Symbicort Inhalation Torsemide Oral 20 mg x2 tabs daily Vitamin D The source(s) of the original Home Medication information: Not obtained. The following Medications were given to the patient in the Emergency Department: IV NS IV Fluids bolus 0, then 1000 mL/hr, administered: 08/31/2016 8:35:00 PM IV NS IV Fluids bolus 0, then 1000 mL/hr, administered: 08/31/2016 8:50:00 PM Albuterol [Neb Tx] Neb TX 2.5 mg, administered: 08/31/2016 8:56:00 PM Rocephin [IVPB] IVPB bolus 0, then 2 gm 150 mL/hr, administered: 08/31/2016 9:08:00 PM Zithromax [IVPB] IVPB bolus 0, then 500 mg 255 mL/hr, administered: 08/31/2016 9:40:00 PM The following Medications were prescribed to the patient: None.
--- NOTE | 2016-09-07 04:20 | ED DISCHARGE INSTRUCTIONS ---
Patient: ROYCE HOLLEY General Instructions [facility] VisitID: [id number] [address] [place] [address] 71y, F Registration Date/Time: 08/31/2016 Major GI bleed with hematochezia. Bacterial pneumonia. Vital signs recorded and reviewed; empiric antibiotics given in the ED. No respiratory failure or sepsis. Acute exacerbation of COPD. (Electronically signed by Annmarie Gonzalez MD 09/07/2016 4:20)
--- NOTE | 2016-09-07 04:20 | ED MAR SUMMARY ---
..... Medication Administration Record [facility] [address] [place] [address] Patient: ROYCE HOLLEY Visit ID: [id number] 71y, F Weight: 61.2 kg Height/Length: 63 in BMI: 23.9 ALLERGIES: Aspirin, Ibuprofen, Tylenol Start 20:35 08/31/2016 Bri Del Toro R.N., Stop 20:50 08/31/2016 Bri Del Toro R.N. Medication Administered: IV NS (SALINE), Dose: IV Fluids over 15 minute(s), Rate: 1000 mL/hr, Dispensed: 1000 mL bag, Site: #1 left AC. Medication Ordered: IV NS : initial bolus 250 mL (1000 mL/hr), then 50 mL/hr (NOW). Start 20:50 08/31/2016 Bri Del Toro R.N., Stop 22:17 08/31/2016 Bri Del Toro R.N. Medication Administered: IV NS (SALINE), Dose: IV Fluids over 15 minute(s), Rate: 1000 mL/hr, Dispensed: 750 mL bag, Site: #1 left AC. Medication Ordered: IV NS : initial bolus 250 mL (1000 mL/hr), then none - for X1 (NOW). Given 20:56 08/31/2016 Bri Del Toro R.N. Medication Administered: ALBUTEROL [NEB TX], Dose: 2.5 mg Neb TX. Medication Ordered: Albuterol Neb Tx 2.5 mg (NOW). Start 21:08 08/31/2016 Bri Del Toro R.N. Medication Administered: ROCEPHIN [IVPB] (CEFTRIAXONE SODIUM), Dose: 2 gm IVPB over 20 minute(s), Rate: 150 mL/hr, Dispensed: 50 mL bag, Site: #1 left AC. Medication Ordered: Rocephin IV 2 gm/50mL (NOW). Start 21:40 08/31/2016 Bri Del Toro R.N., Continued Upon Admission 22:18 08/31/2016 Bri Del Toro R.N. Medication Administered: ZITHROMAX [IVPB] (AZITHROMYCIN), Dose: 500 mg IVPB over 1 hour(s), Rate: 255 mL/hr, Dispensed: 250 mL bag, Site: #1 left AC. Medication Ordered: Zithromax IV 500 mg/250 mL (NOW).
[2016-09-07 06:30] VITALS: BP 134/54
[2016-09-07] MEDS ORDERED: METOLAZONE5 MG PO (07:51)
--- NOTE | 2016-09-07 08:15 | Provider's Discharge Care Plan ---
Problem, Goal, Plan Problem List 1. Pneumonia 2. COPD exacerbation 3. Acute exacerbation of CHF (congestive heart failure) 4. Iron deficiency anemia due to chronic blood loss 5. Restless leg syndrome 6. Osteoarthritis 7. Renal impairment
--- NOTE | 2016-09-07 10:50 | Provider's Discharge Care Plan ---
Problem, Goal, Plan Problem List 1. Pneumonia Goals: Improve disease control, Improve function, Improved health/wellness, Increase independence Instructions: Follow up as directed, Increase activity level, Reduce stress, Stop smoking, No furter antibiotics are needed. Call if you have worsening cough, fever or chills. 2. Iron deficiency anemia due to chronic blood loss Goals: Improve disease control, Improve function, Improved health/wellness Instructions: Follow up as directed, Increase activity level, Take meds as directed, Reduce stress, Stop smoking, Keep appt. with Dr. Hoyos to look at stomacy and colon for site of bleeding. 3. COPD exacerbation Goals: Improve disease control, Improve function, Improved health/wellness, Increase independence Instructions: Follow up as directed, Increase activity level, Take meds as directed, Reduce stress, Stop smoking, Continue inhalers and home nebulizer as directed. Use supplemental oxygen at night routinely and as needed during the day. 4. Acute exacerbation of CHF (congestive heart failure) Goals: Improve disease control, Improve function, Improved health/wellness, Increase independence, Improve nutrition status Instructions: Follow up as directed, Increase activity level, Take meds as directed, Reduce stress, Stop smoking, Follow low salt diet. 5. Restless leg syndrome Goals: Improve disease control, Improve function, Improved health/wellness, Increase independence Instructions: Follow up as directed, Increase activity level, Take meds as directed, Take gabapentin and pramipexole per usual doses. 6. Renal impairment Goals: Improve disease control, Improve function, Improved health/wellness, Increase independence Instructions: Follow up as directed, Increase activity level, Take meds as directed, Reduce stress, Stop smoking, Drink [pleanty of fluids. 7. Mitral stenosis Goals: Improve disease control, Improve function, Improved health/wellness, Increase independence Instructions: Follow up as directed, Increase activity level, Take meds as directed, Reduce stress, Stop smoking, We will arrange for you to see one of the cardiologists to follow this.
--- NOTE | 2016-09-15 21:37 | DISCHARGE SUMMARY ---
ADMIT DATE: 08/31/2016 DISCHARGE DATE: 09/07/2016 ADMITTING DIAGNOSIS: 1. Gastrointestinal bleeding, acute DISCHARGE DIAGNOSES: 1. Bilateral pneumonia causing low oxygen saturations and confusion 2. Acute and chronic blood loss anemia, probably secondary to gastric and small bowel arteriovenous malformations 3. Exacerbation of congestive heart failure 4. Exacerbation of chronic obstructive pulmonary disease 5. Underlying mitral stenosis of a moderate to severe degree 6. Underlying chronic obstructive pulmonary disease 7. Tobacco use disorder 8. Renal insufficiency, primarily prerenal 9. Restless leg syndrome 10. Anxiety disorder 11. Depression PROCEDURE: 1. None BRIEF HISTORY: Please see the dictated history and physical exam for details concerning admission. HOSPITAL COURSE: The patient is a 71-year-old lady well known to me, who presented to the emergency department with confusion and shortness of breath. She was brought in by her daughter who was mostly concerned about the confusion. She was found to have a low hematocrit with hematocrit at 21.5 and hemoglobin at 7.1. She had guaiac- positive stool. She was admitted for concerns regarding acute GI bleeding. Of note, is that her oxygen saturation was also quite low in the upper 80s and chest x-ray did show bibasilar atelectasis versus infiltrates. She had a somewhat elevated white blood cell count at 13,500. Her clinical presentation was one more of pneumonia, aggravation of COPD , bronchospasm and of simply GI bleeding. She was started on ceftriaxone and Zithromax intravenously. She was started on nebulizer treatments and fluid status was followed closely. She was initially continued on carvedilol for controlling heart rate and heart function. She did have some problems with significant bradycardia, which hever'd sometimes down into the lower 40s and upper 30s. The carvedilol was discontinued. She continued to have this occur episodically until towards the end of her hospitalization. She gradually improved with the antibiotics. She is also on nebulizer treatments with DuoNeb and this helped her quite a bit. She was transfused with 2 units of packed red blood cells due to her low hematocrit and evidence of acute and chronic blood loss. She was placed on pantoprazole regularly. She was rehydrated. She gradually improved with this course of treatment. She also had quite significant decrease in iron levels and did receive iron sucrose at 300 mg IV dose. She tolerated this well. She did show evidence of some mild congestive heart failure developing, probably due to fluid overload as she was receiving IV fluids to try to improve and correct her relative dehydration when she was admitted. She received IV bumetanide to treat this and this helped significantly. She also was placed on metolazone orally to help with this. She did have an echocardiogram, which showed a very good ejection fraction of about 81% and no significant left ventricular dysfunction. There was a hint of diastolic dysfunction. She did have significant mitral stenosis estimated to be in the moderate to severe range. The mitral stenosis murmur could not really be heard clinically. By 09/07/2016, she was doing significantly better. She is afebrile. She had received about 8 days' worth of IV antibiotics and showed significant improvement in the infiltrates on her chest x -ray. She showed congestive heart failure to be resolved. Her kidney function had improved significantly with creatinine now 0.8 and BUN at 18. Her hematocrit came up to 32.9. Her desire was to be discharged home and her daughter was comfortable with this. DISCHARGE INSTRUCTIONS/MEDICATIONS: Disposition: The patient was discharged home in care of her daughter. Medications: Following discharge will include continuation of home oxygen at 2 L per minute at night and as needed during the day. She will also continue sertraline 150 mg daily for depression, gabapentin 300 mg t.i.d. for restless leg syndrome, magnesium oxide 800 mg b.i.d. to maintain magnesium level, omeprazole 40 mg daily to control stomach acid, vitamin D3 2000 units daily, pravastatin 20 mg daily to control cholesterol, levothyroxine 50 mcg daily, iron tablets 324 mg b.i.d., ipratropium by nebulizer 0.5 mg q.6 hours, Mirapex 0.25 mg t.i.d. for restless leg syndrome, potassium 10 mEq 3 daily, bumetanide 1 mg strength 1 daily at 12 noon, lisinopril 5 mg every 12 hours, albuterol by metered-dose inhaler 2 puffs every 4 hours, diazepam 2 mg strength 1 at bedtime for sleep assistance and restlessness, oxycodone 5 mg strength 1 tablet morning, afternoon and suppertime and 2 tablets at bedtime, Spiriva 1 capsule inhaled once daily. She will follow up at my office in 7-14 days. She does have an appointment to see Dr. Hoyos, GI Specialist, regarding her stomach and will see him around 09/08/2016 or 09/09/2016. She is encouraged to stop smoking completely.
[2016-11-17] MEDS ORDERED: CYMBALTA30 MG PO (08:14)
[2016-11-17] MEDS ORDERED: OXYCODONE IR PO (08:18)
[2016-11-17] MEDS ORDERED: BUMEX1 MG PO (08:19)
== END 2016-09-07 12:46 | disposition home or self-care (01) | DRG 811 ==
LOC: ED SRH 19:55 → TRANS SRH 21:00 → ACUTE2 SRH 22:25
PROVIDERS: ADMIT Emergency Medicine
PROC: 30233N1 Transfusion of Nonautologous Red Blood Cells into Peripheral Vein, Percutaneous Approach (ICD-10-PCS; principal; 2016-08-31)
PROC: 30233N1 Transfusion of Nonautologous Red Blood Cells into Peripheral Vein, Percutaneous Approach (ICD-10-PCS; 2016-09-01)
DX: D62 Acute posthemorrhagic anemia (principal); D50.0 Iron deficiency anemia secondary to blood loss (chronic); K31.811 Angiodysplasia of stomach and duodenum with bleeding; J44.0 Chronic obstructive pulmonary disease with (acute) lower respiratory infection; J15.9 Unspecified bacterial pneumonia; J44.1 Chronic obstructive pulmonary disease with (acute) exacerbation; R09.02 Hypoxemia; E83.42 Hypomagnesemia; I11.0 Hypertensive heart disease with heart failure; I50.9 Heart failure, unspecified; B18.2 Chronic viral hepatitis C; G25.81 Restless legs syndrome; Z87.891 Personal history of nicotine dependence
CPT/HCPCS: 81460; 85244; 90001; 90004; 90047; 90065; 90074; 90100; 90155; 90616; 91004; 91544; 92610; 92668; 92670; 92720; 94060; 95059

== ENCOUNTER 2016-11-06 17:05 | Emergency (ER) | payer OTHER ==
[~2016-11-06 17:05] MED LIST changes: +ALBUTEROL HFA60 DOSE IN; +ALDACTONE25 MG PO; +ASPIRIN ADULT L81 MG PO; +BUSPIRONE HCL7.5 MG PO; +DEMADEX10 MG PO; +DIAZEPAM2 MG PO; +FUROSEMIDE40 MG PO; +LOPRESSOR50 MG PO; +METOPROLOL SUCC25 MG PO; +SYMBICORT1 AE1; +TYLENOL325 MG PO; +VITAMIN D1000 UNIT PO
--- NOTE | 2016-11-06 20:30 | ED ORDER SUMMARY ---
..... Patient: ROYCE HOLLEY OrderSheet [facility] VisitID: [id number] [place] [address] 71y, F Registration Date/Time: 11/06/2016 ORDER SHEET Weight: 68.0 kg (stated) Allergies: Aspirin, Ibuprofen, Tylenol GENERAL ORDERS: Lumbar Spine 2 or 3V Urgent (17:52 11/06/2016 Dayana Olivier) (Ack 17:54 NHouse ER Tech1) (18:39 [place]) MEDICATION ORDERS: Flexeril PO 10 mg (NOW) (17:50 11/06/2016 Dayana Olivier) (17:55 Froy R.N.) - (oxycodone 5 mg PO once now) (17:50 11/06/2016 Dayana Olivier) (17:57 Froy R.N.) Morphine IM 8 mg (once now) (18:57 11/06/2016 Dayana Olivier) (19:09 ROLANDOnecarolyn R.N.) IV FLUIDS: ORDER SHEET NOTES: [Electronically signed by Nuvia Calero R.N. (22:00 11/06/2016)] [Electronically signed by Nuvia Calero R.N. (22:00 11/06/2016)] [Electronically signed by Nuvia Calero R.N. (22:02 11/06/2016)] [Electronically signed by Manpreet Mora Dr. (09:40 11/09/2016)] [Electronically locked/signed by Nuvia Calero R.N. (22:00 11/06/2016)]
--- NOTE | 2016-11-06 20:30 | ED NURSING NOTES ---
Clinical Report - Nurses [facility] [address] [place] [address] 11/06/2016 17:10 Patient: ROYCE HOLLEY TRIAGE Triage time 17:17. Acuity: LEVEL 3. Chief Complaint: BACK PAIN and (low back pain and down the lt leg). Alert. No acute distress. CODY COMA SCORE: Cody Coma Scale: 15- eyes open spontaneously (4); best verbal response- oriented x 4 (5); best motor response- obeys commands (6). --17:36 Nuvia Calero R.N. 17:17 11/06/16. BP: 137/60 taken while lying. HR: 64. RR: 20. O2 saturation: 98%. Temp: 97.7 F. Pain level now: 03/14. --17:36 Nuvia Calero R.N. Weight: 68 kg stated. Height/Length: 64 inches Per Patient. BMI: 25.8. --17:21 Nuvia Calero R.N. Medications Acetaminophen Oral 325 mg, 2x a day as needed. Albuterol Sulfate Oral, Q3-4H. Aspirin Oral (Tablet Chewable 81 mg). Bumetanide Oral 1 mg, 1 1/2 Q daily. BusPIRone HCl Oral (Tablet 7.5 mg) 1 tablet, BID. Carvedilol Oral (Tablet 3.125 mg) 1 tablet, Q12H. Combivent Respimat Inhalation (Aerosol Solution 20-100 mcg/act) QID. Diazepam Oral 2 mg, at bedtime. Digoxin Oral (Tablet 125 mcg) 1 tablet, daily. Ferrous Sulfate Oral 325 mg, daily. Furosemide Oral 40 mg, daily. Gabapentin Oral 300 mg, QID. Levothyroxine Sodium Oral (Tablet 50 mcg) 1 tablet, daily. Lisinopril Oral 5 mg, Q12H. Magnesium Oxide Oral (Tablet 400 mg) 1 tablet, BID. Metolazone Oral 2.5 mg, Q mornings: mon, wed, frid. Omeprazole Oral 40 mg, daily. OxyCODONE HCl Oral 5 mg, noon, 4pm and 2 tabs at bedtime. Potassium Chloride ER Oral (Capsule Extended Release 10 meq) 1 capsule, on mon, mon, monday. pramipexole 0.5mg x1 tab three times daily. Pravastatin Sodium Oral 20 mg, at bedtime. --17:33 Nuvia Calero R.N. ProAir HFA Inhalation. Sertraline HCl Oral 100 mg 1 1/2 daily. Spiriva HandiHaler Inhalation. Spironolactone Oral 25 mg. Symbicort Inhalation. Torsemide Oral 20 mg x2 tabs daily. Vitamin D. --17:33 Nuvia Calero R.N. Allergies Aspirin. Ibuprofen. Tylenol. --17:33 Nuvia Calero R.N. Medication/allergy information source: the patient. --17:36 Nuvia Calero R.N. History Arrived by private vehicle. Historian: patient and family. Accompanied by family. Primary physician ([place]). Onset. (2 1/2 weeks ago). She has had numbness and weakness. She has had trouble walking (uses a cane). The patient has been limping when trying to walk. She has had similar symptoms previously. She has had left leg pain. History of recent trauma- lifting injury (and turning). Treatment [employer]: (topical patch). PAST MEDICAL HX: Tetanus status: unknown. The patient has had a hysterectomy. SOCIAL HX: Light tobacco smoker (cigarette)- less than 1/2 a pack per day. No alcohol use or drug use. No infectious disease exposure. ABUSE ASSESSMENT: No report of abuse. FALL RISK ASSESSMENT: Fall risk assessment completed. No fall risk identified. NUTRITIONAL RISK ASSESSMENT: The nutritional risk assessment revealed no deficiencies. FUNCTIONAL ASSESSMENT: Functional assessment: no impairments noted. LEARNING NEEDS ASSESSMENT: The learning needs assessment revealed no barriers. SKIN INTEGRITY ASSESSMENT: Skin integrity risk assessment completed. No skin integrity risk identified. --17:36 Nuvia Calero R.N. Occurred at home. --22:02 Nuvia Calero R.N. PROBLEMS: Hepatitis [Active]. Anemia [Active]. Back Pain [Active]. Hypertension [Active]. --17:34 Nuvia Calero R.N. GI Bleeding. Pneumonia. COPD - Chronic Obstructive Pulmonary Disease. Hypoxia. Asthma. Hypothyroidism. Abnormal Test. Lifestyle / Substance Problems. Headaches. Ovarian Cancer. Depression. Hypercholesterolemia. Restless Legs Syndrome. Congestive Heart Failure. Syncope. Dehydration. Substance Abuse. Hyperlipidemia. Cancer. Osteoporosis. Valvular Heart Disease. UTI - Urinary Tract Infection. Anemia. Hyponatremia. Hypertension. Anxiety Reaction. Peptic Ulcer Disease. Myocardial Infarction. Coronary Artery Disease. Lumbar Strain. Immunizations. Fall. Bronchitis. --17:34 Nuvia Calero R.N. ADDITIONAL SURGERIES: Hysterectomy. Liver Lac repair. Shoulder Surgery. --17:34 Nuvia Calero R.N. Interventions ID band on patient. To room. --17:36 Nuvia Calero R.N. PHYSICAL ASSESSMENT Ambulatory to room. Patient gowned. GENERAL / NEURO / PSYCH: Alert. Oriented X 4. Appears in pain. RESPIRATORY: Respirations not labored. CVS: Capillary refill less than 2 seconds. GI / : Abdomen nontender. EXTREMITIES: Sensation intact in extremities. ROM of extremities within normal limits. BACK: Limited ROM of the back. --17:38 Nuvia Calero R.N. NURSING PROGRESS NOTES Cold pack applied. Patient gowned. Head of bed elevated. Two patient identifiers checked. Call light placed in reach. Side rails up x 2. Bed placed in lowest position. Brakes of bed on. Patient ready for evaluation. --17:38 Nuvia Calero R.N. 17:55 11/06/2016 Flexeril (Cyclobenzaprine HCl) PO 10 mg given. Allergies verified and confirmed 5 rights. --17:55 Nuvia Calero R.N. 17:56 11/06/2016 Oxycodone PO 5 mg given. Allergies verified, confirmed 5 rights and sedative warning given to the patient. --17:57 Nuvia Calero R.N. 19:09 11/06/2016 Morphine (Morphine Sulfate (PF)) IM 8 mg given. Given in the left gluteus ирина. Allergies verified, confirmed 5 rights and sedative warning given to the patient. --19:09 Karen Roach R.N. DISPOSITION / DISCHARGE No learning barriers present. Discharge instructions provided and reviewed with the patient and family. Reviewed medication(s) side effects, precautions, dosing and course information. Prescription(s) given to the patient. Patient and family verbalized understanding. Written instructions provided in Iranian. The patient was discharged home and accompanied by family. She left the Emergency Department ambulatory and via private vehicle. Family member driving. Medication list reviewed and validated. --21:59 Nuvia Calero R.N. 21:45 11/06/16. BP: 135/68. HR: 80. RR: 16. O2 saturation: 97% on room air. Temp: deferred. Pain level now: 07/15. 19:45 11/06/16. BP: 133/66. HR: 74. RR: 16. O2 saturation: 98% on room air. 18:37 11/06/16. BP: 145/69. HR: 70. RR: 18. O2 saturation: 98% on room air. 17:17 11/06/16. BP: 137/60 taken while lying. HR: 64. RR: 20. O2 saturation: 98%. Temp: 97.7 F. Pain level now: 03/14. --21:59 Nuvia Calero R.N. Locked/Released at 11/06/2016 22:02 by Nuvia Calero R.N.
--- NOTE | 2016-11-06 20:30 | ED CLINICAL REPORT ---
Clinical Report - Physicians/Mid Levels [facility] [address] [place] [address] 11/06/2016 17:10 Patient: ROYCE HOLLEY Time Seen: 1728. Arrived- By private vehicle. Historian- patient. HISTORY OF PRESENT ILLNESS Chief Complaint: BACK PAIN. It is described as being severe and radiating to the left thigh. The quality is noted to be sharp. Onset- over 2 weeks ago and it is still present (unchanged). It was abrupt in onset and has been constant but is not gone now. No bladder dysfunction, bowel dysfunction, sensory loss or motor loss. Additional history - no fever. no hx of IV drug use. Patient notes the possibility of an injury but denies injury to the head or chest. Mechanism of injury- she was lifting. Occurred at home. No other injury. Similar symptoms previously: (a few times). Recent medical care: Not recently seen/assessed. REVIEW OF SYSTEMS No fever. All systems otherwise negative, except as recorded above. PAST HISTORY See nurses notes. Medications: ProAir HFA Inhalation. Sertraline HCl Oral 100 mg 1 1/2 daily. Spiriva HandiHaler Inhalation. Spironolactone Oral 25 mg. Symbicort Inhalation. Torsemide Oral 20 mg x2 tabs daily. Vitamin D. Acetaminophen Oral 325 mg, 2x a day as needed. Albuterol Sulfate Oral, Q3-4H. Aspirin Oral (Tablet Chewable 81 mg). Bumetanide Oral 1 mg, 1 1/2 Q daily. BusPIRone HCl Oral (Tablet 7.5 mg) 1 tablet, BID. Carvedilol Oral (Tablet 3.125 mg) 1 tablet, Q12H. Combivent Respimat Inhalation (Aerosol Solution 20-100 mcg/act) QID. Diazepam Oral 2 mg, at bedtime. Digoxin Oral (Tablet 125 mcg) 1 tablet, daily. Ferrous Sulfate Oral 325 mg, daily. Furosemide Oral 40 mg, daily. Gabapentin Oral 300 mg, QID. Levothyroxine Sodium Oral (Tablet 50 mcg) 1 tablet, daily. Lisinopril Oral 5 mg, Q12H. Magnesium Oxide Oral (Tablet 400 mg) 1 tablet, BID. Metolazone Oral 2.5 mg, Q mornings: mon, mon, mond. Omeprazole Oral 40 mg, daily. OxyCODONE HCl Oral 5 mg, noon, 4pm and 2 tabs at bedtime. Potassium Chloride ER Oral (Capsule Extended Release 10 meq) 1 capsule, on mon, mon, monday. pramipexole 0.5mg x1 tab three times daily. Pravastatin Sodium Oral 20 mg, at bedtime. Allergies: Aspirin. Ibuprofen. Tylenol. SOCIAL HISTORY Smoker- current status unknown. No alcohol use or drug use. No recent travel. Is a local resident. ADDITIONAL NOTES The nursing notes have been reviewed. PHYSICAL EXAM Vital Signs: 11/06/2016 17:17 BP: 137/60. HR: 64. RR: 20. O2 saturation: 98%. Temp: 97.7 F. Pain level now: 10/10. Oxygen saturation normal. Appearance: Alert. No acute distress. (nontoxic appearance). HEENT: Normal external inspection. Eyes: Pupils equal, round and reactive to light. ENT: Ears normal. Pharynx normal. Neck: Normal inspection. Neck nontender. No pain with movement of head/neck. No muscle spasm in the neck. Painless ROM. No vertebral tenderness. No soft tissue tenderness, lymphadenopathy or meningeal signs. (negative Kernig's sign and negative Brudzinski's sign.). CVS: Normal heart rate and rhythm. Heart sounds normal. Pulses normal. Respiratory: No respiratory distress. Breath sounds normal. Chest nontender. No rales, rhonchi or wheezes. Abdomen: Normal inspection. Soft and nontender. Bowel sounds normal. Back: Normal inspection. (no midline tenderness. No crepitus. No overlying skin changes. Compartments are soft. Bilateral paraspinal muscle tenderness and spasm Located in the lower lumbar region.). Skin: Skin warm and dry. Normal skin color. No rash. Normal skin turgor. Extremities: Extremities exhibit normal ROM. Extremities nontender. Neuro: Oriented X 3. Mood/affect normal. No motor deficit. No sensory deficit. PROGRESS AND PROCEDURES Course of Care: the patient is a 71-year-old female with history of chronic back pain presenting for evaluation of exacerbation of chronic back pain. Patient has no focal neurological deficits at this time. Patient with intact sensation and good strength in the lower trimmed his. No signs of cord compromise at this time. do not fill patient has paraspinal infection, cauda equina, or conus medullaris. Patient will be treated conservatively with pain management. Patient be reevaluated once the pain medication has been given time to take effect. Patient required another dose of pain medication. After this, the patient was noted to be significantly more comfortable. Patient is able to amply without difficulty. Had a discussion with the patient in regards to her presentation here in the emergency department and need for appropriate for home care and follterDr Also discussed return precautions. All questions have been answered. The patient expressed understanding of these instructions and was agreeable to them. Upon discharge, patient is them before he noted to be in no acute distress. Patient's repeat examination continues to be reassuring. Disposition: Discharged. Condition: good. CLINICAL IMPRESSION 11/06/2016 17:17 BP: 137/60. HR: 64. RR: 20. O2 saturation: 98%. Temp: 97.7 F. Pain level now: 10/10. Blood pressure normal. Oxygen saturation normal. Lumbar back pain associated with sprain. INSTRUCTIONS Warnings: GENERAL WARNINGS: Return or contact your physician immediately if your condition worsens or changes unexpectedly, if not improving as expected, or if other problems arise. SPECIFICALLY, return if you develop weakness, numbness, tingling, pain or incontinence. fever or other concerns. Your Current Medications: CONTINUE TAKING THE FOLLOWING MEDICATIONS: Acetaminophen Oral : 325 mg 2x a day, prn. Albuterol Sulfate Oral : Q3-4H. Aspirin Oral : Tablet Chewable 81 mg. Bumetanide Oral : 1 mg 1 1/2 Q daily. BusPIRone HCl Oral : Tablet 7.5 mg, 1 tablet BID. Carvedilol Oral : Tablet 3.125 mg, 1 tablet Q12H. Combivent Respimat Inhalation : Aerosol Solution 20-100 mcg/act, QID. Diazepam Oral : 2 mg at bedtime. Digoxin Oral : Tablet 125 mcg, 1 tablet daily. Ferrous Sulfate Oral : 325 mg daily. Furosemide Oral : 40 mg daily. Gabapentin Oral : 300 mg QID. Levothyroxine Sodium Oral : Tablet 50 mcg, 1 tablet daily. Lisinopril Oral : 5 mg Q12H. Magnesium Oxide Oral : Tablet 400 mg, 1 tablet BID. Metolazone Oral : 2.5 mg Q mornings: mon, mon, . Omeprazole Oral : 40 mg daily. OxyCODONE HCl Oral : 5 mg noon, 4pm and 2 tabs at bedtime. Potassium Chloride ER Oral : Capsule Extended Release 10 meq, 1 capsule on mon, mon, monday. pramipexole 0.5mg x1 tab three times daily*. Pravastatin Sodium Oral : 20 mg at bedtime. ProAir HFA Inhalation. Sertraline HCl Oral : 100 mg 1 1/2 daily. Spiriva HandiHaler Inhalation. Spironolactone Oral : 25 mg. Symbicort Inhalation. Torsemide Oral : 20 mg x2 tabs daily. Vitamin D*. Prescription Medications: Flexeril 10 mg: take 1 orally every 8 hours as needed for muscle spasm or pain. Dispense twenty (20). No refills. Substitution is permissible. Oxycodone 5 mg tablets: take 1 orally as needed for pain. Dispense ten (10). No refill. Morphine sulfate IR 15 mg tab. Take one tab by mouth every 6 hours as needed for break through pain. Disp 12 tabs. No refills. Substitution allowed. Follow-up: Return to the emergency department as needed. Follow up with your doctor in three days. Reason for referral: recheck today's concerns. Screening today revealed the patient's blood pressure to be in the normal range. The patient should follow up with a primary care provider for blood pressure management. Understanding of the discharge instructions verbalized by patient. (Electronically signed by Manpreet Mora Dr. 11/09/2016 9:40)
--- NOTE | 2016-11-06 20:30 | ED ORDER SUMMARY ---
..... Patient: ROYCE HOLLEY OrderSheet [facility] VisitID: [id number] [place] [address] 71y, F Registration Date/Time: 11/06/2016 ORDER SHEET Weight: 68.0 kg (stated) Allergies: Aspirin, Ibuprofen, Tylenol GENERAL ORDERS: Lumbar Spine 2 or 3V Urgent (17:52 11/06/2016 Dayana Olivier) (Ack 17:54 NHouse ER Tech1) (18:39 Central) MEDICATION ORDERS: Flexeril PO 10 mg (NOW) (17:50 11/06/2016 Dayana Olivier) (17:55 Froy R.N.) - (oxycodone 5 mg PO once now) (17:50 11/06/2016 Dayana Olivier) (17:57 Froy R.N.) Morphine IM 8 mg (once now) (18:57 11/06/2016 Dayana Olivier) (19:09 ROLANDOnecarolyn R.N.) IV FLUIDS: ORDER SHEET NOTES: [Electronically signed by Nuvia Calero R.N. (22:00 11/06/2016)] [Electronically signed by Nuvia Calero R.N. (22:00 11/06/2016)] [Electronically signed by Nuvia Calero R.N. (22:02 11/06/2016)] [Electronically signed by Manpreet Mora Dr. (09:40 11/09/2016)] [Electronically locked/signed by Nuvia Calero R.N. (22:00 11/06/2016)]
--- NOTE | 2016-11-06 20:45 | DIAGNOSTIC IMAGING REPORT ---
PROCEDURE: XR LUMBAR SPINE 2 OR 3 VIEWS INDICATION: LOWER BACK PAIN TECHNIQUE: Three views of the lumbar spine COMPARISON: CT abdomen pelvis 04/27/2016 FINDINGS: Five lumbar-type vertebral bodies are present. Diffusely decreased mineralization. 50% height loss of T11. Well corticated central superior endplate compressions results in approximately 30% height loss of L1, 25% height loss L2 and L3. Extent appears fairly stable compared to the prior CT scan. L5 vertebral body is not well seen due to overlying tissues and osteopenia. Chronic grade 1 L4-5 anterolisthesis. Disc spacing is normal. Facet degeneration and hypertrophy at L4-5. The visible osseous pelvis and bowel gas pattern are normal. Heavy abdominal aortic and by iliac atherosclerosis. IMPRESSION: 1. Nonvisualization of L5. A fracture is not excluded. Consider advanced imaging if clinically indicated. 2. Chronic-appearing lower thoracic and upper lumbar compression fractures. 3. L4-5 anterolisthesis, stable. 4. Osteopenia.
--- NOTE | 2016-11-09 09:41 | ED MED RECONCILIATION SUMMARY ---
Patient: ROYCE HOLLEY Medication Reconciliation Report [facility] VisitID: [id number] [place] [address] 71y, F Registration Date/Time: 11/06/2016 Weight: 68.0 kg Height/Length: 64 in. BMI: 25.8 ALLERGIES: Aspirin, Ibuprofen, Tylenol The patient's Home Medications are listed below: CONTINUE TAKING THE FOLLOWING MEDICATIONS: Acetaminophen Oral 325 mg, 2x a day Albuterol Sulfate Oral, Q3-4H Aspirin Oral (81 mg) Bumetanide Oral 1 mg, 1 1/2 Q daily BusPIRone HCl Oral (7.5 mg) 1 tablet, BID Carvedilol Oral (3.125 mg) 1 tablet, Q12H Combivent Respimat Inhalation (20-100 mcg/act) QID Diazepam Oral 2 mg, at bedtime Digoxin Oral (125 mcg) 1 tablet, daily Ferrous Sulfate Oral 325 mg, daily Furosemide Oral 40 mg, daily Gabapentin Oral 300 mg, QID Levothyroxine Sodium Oral (50 mcg) 1 tablet, daily Lisinopril Oral 5 mg, Q12H Magnesium Oxide Oral (400 mg) 1 tablet, BID Metolazone Oral 2.5 mg, Q mornings: mon, mon, mond Omeprazole Oral 40 mg, daily OxyCODONE HCl Oral 5 mg, noon, 4pm and 2 tabs at bedtime Potassium Chloride ER Oral (10 meq) 1 capsule, on mon, mon, monday pramipexole 0.5mg x1 tab three times daily Pravastatin Sodium Oral 20 mg, at bedtime ProAir HFA Inhalation Sertraline HCl Oral 100 mg 1 1/2 daily Spiriva HandiHaler Inhalation Spironolactone Oral 25 mg Symbicort Inhalation Torsemide Oral 20 mg x2 tabs daily Vitamin D The source(s) of the original Home Medication information: patient The following Medications were given to the patient in the Emergency Department: Flexeril [PO] PO 10 mg, administered: 11/06/2016 5:55:00 PM Oxycodone [PO] PO 5 mg, administered: 11/06/2016 5:56:00 PM Morphine [IM] IM 8 mg, administered: 11/06/2016 7:09:00 PM The following Medications were prescribed to the patient: Flexeril 10 mg: take 1 orally every 8 hours as needed for muscle spasm or pain. Dispense twenty (20). No refills. Substitution is permissible. -- Manpreet Mora Dr. Morphine sulfate IR 15 mg tab. Take one tab by mouth every 6 hours as needed for break through pain. Disp 12 tabs. No refills. Substitution allowed. -- Manpreet Mora Dr. Oxycodone 5 mg tablets: take 1 orally as needed for pain. Dispense ten (10). No refill. -- Manpreet Mora Dr.
--- NOTE | 2016-11-09 09:41 | ED MAR SUMMARY ---
..... Medication Administration Record [facility] [address] [place] [address] Patient: ROYCE HOLLEY Visit ID: [id number] 71y, F Weight: 68.0 kg Height/Length: 64 in BMI: 25.8 ALLERGIES: Aspirin, Ibuprofen, Tylenol Given 17:55 11/06/2016 Nuvia Calero R.N. Medication Administered: FLEXERIL [PO] (CYCLOBENZAPRINE HCL), Dose: 10 mg PO. Medication Ordered: Flexeril PO 10 mg (NOW). Given 17:56 11/06/2016 Nuvia Calero R.N. Medication Administered: OXYCODONE [PO], Dose: 5 mg PO. Medication Ordered: - (oxycodone 5 mg PO once now). Given 19:09 11/06/2016 Karen Roach R.N. Medication Administered: MORPHINE [IM] (MORPHINE SULFATE (PF)), Dose: 8 mg IM. Medication Ordered: Morphine IM 8 mg (once now).
--- NOTE | 2016-11-09 09:41 | ED MAR SUMMARY ---
..... Medication Administration Record [facility] [address] [place] [address] Patient: RYOCE HOLLEY Visit ID: [id number] 71y, F Weight: 68.0 kg Height/Length: 64 in BMI: 25.8 ALLERGIES: Aspirin, Ibuprofen, Tylenol Given 17:55 11/06/2016 Nuvia Calero R.N. Medication Administered: FLEXERIL [PO] (CYCLOBENZAPRINE HCL), Dose: 10 mg PO. Medication Ordered: Flexeril PO 10 mg (NOW). Given 17:56 11/06/2016 Nuvia Calero R.N. Medication Administered: OXYCODONE [PO], Dose: 5 mg PO. Medication Ordered: - (oxycodone 5 mg PO once now). Given 19:09 11/06/2016 Karen Roach R.N. Medication Administered: MORPHINE [IM] (MORPHINE SULFATE (PF)), Dose: 8 mg IM. Medication Ordered: Morphine IM 8 mg (once now).
--- NOTE | 2016-11-09 09:41 | ED DISCHARGE INSTRUCTIONS ---
Patient: ROYCE HOLLEY General Instructions [facility] VisitID: [id number] [place] [address] 71y, F Registration Date/Time: 11/06/2016 11/06/2016 17:17 BP: 137/60. HR: 64. RR: 20. O2 saturation: 98%. Temp: 97.7 F. Pain level now: 03/14. Blood pressure normal. Oxygen saturation normal. Lumbar back pain associated with sprain. INSTRUCTIONS Warnings: GENERAL WARNINGS: Return or contact your physician immediately if your condition worsens or changes unexpectedly, if not improving as expected, or if other problems arise. SPECIFICALLY, return if you develop weakness, numbness, tingling, pain or incontinence. fever or other concerns. Your Current Medications: CONTINUE TAKING THE FOLLOWING MEDICATIONS: Acetaminophen Oral : 325 mg 2x a day, prn. Albuterol Sulfate Oral : Q3-4H. Aspirin Oral : Tablet Chewable 81 mg. Bumetanide Oral : 1 mg 1 1/2 Q daily. BusPIRone HCl Oral : Tablet 7.5 mg, 1 tablet BID. Carvedilol Oral : Tablet 3.125 mg, 1 tablet Q12H. Combivent Respimat Inhalation : Aerosol Solution 20-100 mcg/act, QID. Diazepam Oral : 2 mg at bedtime. Digoxin Oral : Tablet 125 mcg, 1 tablet daily. Ferrous Sulfate Oral : 325 mg daily. Furosemide Oral : 40 mg daily. Gabapentin Oral : 300 mg QID. Levothyroxine Sodium Oral : Tablet 50 mcg, 1 tablet daily. Lisinopril Oral : 5 mg Q12H. Magnesium Oxide Oral : Tablet 400 mg, 1 tablet BID. Metolazone Oral : 2.5 mg Q mornings: mon, wed, frid. Omeprazole Oral : 40 mg daily. OxyCODONE HCl Oral : 5 mg noon, 4pm and 2 tabs at bedtime. Potassium Chloride ER Oral : Capsule Extended Release 10 meq, 1 capsule on mon, mon, monday. pramipexole 0.5mg x1 tab three times daily*. Pravastatin Sodium Oral : 20 mg at bedtime. ProAir HFA Inhalation. Sertraline HCl Oral : 100 mg 1 1/2 daily. Spiriva HandiHaler Inhalation. Spironolactone Oral : 25 mg. Symbicort Inhalation. Torsemide Oral : 20 mg x2 tabs daily. Vitamin D*. Prescription Medications: Flexeril 10 mg: take 1 orally every 8 hours as needed for muscle spasm or pain. Dispense twenty (20). No refills. Substitution is permissible. Oxycodone 5 mg tablets: take 1 orally as needed for pain. Dispense ten (10). No refill. Morphine sulfate IR 15 mg tab. Take one tab by mouth every 6 hours as needed for break through pain. Disp 12 tabs. No refills. Substitution allowed. Follow-up: Return to the emergency department as needed. Follow up with your doctor in three days. Reason for referral: recheck today's concerns. Screening today revealed the patient's blood pressure to be in the normal range. The patient should follow up with a primary care provider for blood pressure management. Understanding of the discharge instructions verbalized by patient. ADDITIONAL INFORMATION Sciatica Sciatica ("Lumbar Radiculopathy") causes a pain that spreads from the lower back down into the buttock, hip and leg. Sometimes leg pain can occur without any back pain. Sciatica is due to irritation or pressure on a spinal nerve as it comes out of the spinal canal. This is most often due to a bulge or rupture of a nearby spinal disk (the cartilage cushion between each spinal bone), which presses on a nearby nerve. Other causes include spinal stenosis (narrowing of the spinal canal) and spasm of the pyriform muscle (a muscle in the buttocks that the sciatic nerve passes through). Sciatica may begin after a sudden twisting/bending force (such as in a car accident), or sometimes after a simple awkward movement. In either case, muscle spasm is commonly present and contributes to the pain. The diagnosis of sciatica is made from the symptoms and physical exam. Unless you had a physical injury (such as a car accident or fall), X-rays are usually not ordered for the initial evaluation of sciatica because the nerves and disks cannot be seen on an x-ray. If signs of a compressed nerve are present (for example, loss of tendon reflex or strength in the leg), an MRI (magnetic resonance imaging) scan will need to be scheduled as an outpatient. Most sciatica (80-90%) gets better with medicine, exercise, physical therapy. If symptoms continue after at least three months of medical treatment, surgery may be considered. Home Care: You may need to stay in bed the first few days. But, as soon as possible, begin sitting or walking to avoid problems with prolonged bed rest. When in bed, try to find a position of comfort. A firm mattress is best. Try lying flat on your back with pillows under your knees. You can also try lying on your side with your knees bent up towards your chest and a pillow between your knees. Avoid prolonged sitting. This puts more stress on the lower back than standing or walking. Some persons find relief with heat (hot shower, hot bath or heating pad) and massage, while others prefer cold packs (crushed or cubed ice in a plastic bag, wrapped in a towel). Try both and use the method that feels best for 20 minutes several times a day. You may use acetaminophen (Tylenol) or ibuprofen (Motrin, Advil) to control pain, unless another pain medicine was prescribed. [ NOTE: If you have chronic liver or kidney disease or ever had a stomach ulcer or GI bleeding, talk with your doctor before using these medicines.] Be aware of safe lifting methods and do not lift anything over 15 pounds until all the pain is gone. Follow Up with your doctor or this facility if your symptoms do not start to improve after one week. Physical therapy or further testing may be needed. [NOTE: If X-rays were taken, they will be reviewed by a radiologist. You will be notified of any new findings that may affect your care.] Get Prompt Medical Attention if any of the following occur: Pain becomes worse, not controlled by the prescribed medicine Weakness or numbness in one or both legs Numbness in the groin, genital area Loss of bowel or bladder control Cyclobenzaprine Hydrochloride Oral tablet What is this medicine? CYCLOBENZAPRINE (jai gutierrez) is a muscle relaxer. It is used to treat muscle pain, spasms, and stiffness. How should I use this medicine? Take this medicine by mouth with a glass of water. Follow the directions on the prescription label. If this medicine upsets your stomach, take it with food or milk. Take your medicine at regular intervals. Do not take it more often than directed. Talk to your backup engineer regarding the use of this medicine in children. Special care may be needed. What side effects may I notice from receiving this medicine? Side effects that you should report to your doctor or health care coordinator as soon as possible: allergic reactions like skin rash, itching or hives, swelling of the face, lips, or tongue chest pain fast heartbeat hallucinations seizures vomiting Side effects that usually do not require medical attention (report to your doctor or health care coordinator if they continue or are bothersome): headache What may interact with this medicine? Do not take this medicine with any of the following medications: cisapride droperidol flecainide grepafloxacin halofantrine levomethadyl MAOIs like Carbex, Eldepryl, Marplan, Nardil, and Parnate nilotinib pimozide probucol sertindole This medicine may also interact with the following medications: abarelix alcohol contrast dyes dolasetron guanethidine medicines for cancer medicines for depression, anxiety, or psychotic disturbances medicines to treat an irregular heartbeat medicines used for sleep or numbness during surgery or procedure methadone octreotide ondansetron palonosetron phenothiazines like chlorpromazine, mesoridazine, prochlorperazine, thioridazine some medicines for infection like alfuzosin, chloroquine, clarithromycin, levofloxacin, mefloquine, pentamidine, troleandomycin tramadol vardenafil What if I miss a dose? If you miss a dose, take it as soon as you can. If it is almost time for your next dose, take only that dose. Do not take double or extra doses. Where should I keep my medicine? Keep out of the reach of children. Store at room temperature between 15 and 30 degrees C (59 and 86 degrees F). Keep container tightly closed. Throw away any unused medicine after the expiration date. What should I tell my health care provider before I take this medicine? They need to know if you have any of these conditions: heart disease, irregular heartbeat, or previous heart attack liver disease thyroid problem an unusual or allergic reaction to cyclobenzaprine, tricyclic antidepressants, lactose, other medicines, foods, dyes, or preservatives or trying to get breast-feeding What should I watch for while using this medicine? Check with your doctor or health care coordinator if your condition does not improve within 1 to 3 weeks. You may get drowsy or dizzy when you first start taking the medicine or change doses. Do not drive, use machinery, or do anything that may be dangerous until you know how the medicine affects you. Stand or sit up slowly. Your mouth may get dry. Drinking water, chewing sugarless gum, or sucking on hard candy may help. Oxycodone Hydrochloride, Acetaminophen Oral tablet What is this medicine? ACETAMINOPHEN; OXYCODONE (a set a ROCIO margaret fen; ox i KOE done) is a pain reliever. It is used to treat mild to moderate pain. How should I use this medicine? Take this medicine by mouth with a full glass of water. Follow the directions on the prescription label. Take your medicine at regular intervals. Do not take your medicine more often than directed. Talk to your backup engineer regarding the use of this medicine in children. Special care may be needed. Patients over 65 years old may have a stronger reaction and need a smaller dose. What side effects may I notice from receiving this medicine? Side effects that you should report to your doctor or health care coordinator as soon as possible: allergic reactions like skin rash, itching or hives, swelling of the face, lips, or tongue breathing difficulties, wheezing confusion light headedness or fainting spells severe stomach pain yellowing of the skin or the whites of the eyes Side effects that usually do not require medical attention (report to your doctor or health care coordinator if they continue or are bothersome): dizziness drowsiness nausea vomiting What may interact with this medicine? alcohol antihistamines barbiturates like amobarbital, butalbital, butabarbital, methohexital, pentobarbital, phenobarbital, thiopental, and secobarbital benztropine drugs for bladder problems like solifenacin, trospium, oxybutynin, tolterodine, hyoscyamine, and methscopolamine drugs for breathing problems like ipratropium and tiotropium drugs for certain stomach or intestine problems like propantheline, homatropine methylbromide, glycopyrrolate, atropine, belladonna, and dicyclomine general anesthetics like etomidate, ketamine, nitrous oxide, propofol, desflurane, enflurane, halothane, isoflurane, and sevoflurane medicines for depression, anxiety, or psychotic disturbances medicines for sleep muscle relaxants naltrexone narcotic medicines (opiates) for pain phenothiazines like perphenazine, thioridazine, chlorpromazine, mesoridazine, fluphenazine, prochlorperazine, promazine, and trifluoperazine scopolamine tramadol trihexyphenidyl What if I miss a dose? If you miss a dose, take it as soon as you can. If it is almost time for your next dose, take only that dose. Do not take double or extra doses. Where should I keep my medicine? Keep out of the reach of children. This medicine can be abused. Keep your medicine in a safe place to protect it from theft. Do not share this medicine with anyone. Selling or giving away this medicine is dangerous and against the law. Store at room temperature between 20 and 25 degrees C (68 and 77 degrees F). Keep container tightly closed. Protect from light. This medicine may cause accidental overdose and if it is taken by other adults, children, or pets. Flush any unused medicine down the toilet to reduce the chance of harm. Do not use the medicine after the expiration date. What should I tell my health care provider before I take this medicine? They need to know if you have any of these conditions: brain tumor Crohn's disease, inflammatory bowel disease, or ulcerative colitis drink more than 3 alcohol containing drinks per day drug abuse or addiction head injury heart or circulation problems kidney disease or problems going to the bathroom liver disease lung disease, asthma, or breathing problems an unusual or allergic reaction to acetaminophen, oxycodone, other opioid analgesics, other medicines, foods, dyes, or preservatives or trying to get breast-feeding What should I watch for while using this medicine? Tell your doctor or health care coordinator if your pain does not go away, if it gets worse, or if you have new or a different type of pain. You may develop tolerance to the medicine. Tolerance means that you will need a higher dose of the medication for pain relief. Tolerance is normal and is expected if you take this medicine for a long time. Do not suddenly stop taking your medicine because you may develop a severe reaction. Your body becomes used to the medicine. This does NOT mean you are addicted. Addiction is a behavior related to getting and using a drug for a non-medical reason. If you have pain, you have a medical reason to take pain medicine. Your doctor will tell you how much medicine to take. If your doctor wants you to stop the medicine, the dose will be slowly lowered over time to avoid any side effects. You may get drowsy or dizzy. Do not drive, use machinery, or do anything that needs mental alertness until you know how this medicine affects you. Do not stand or sit up quickly, especially if you are an older patient. This reduces the risk of dizzy or fainting spells. Alcohol may interfere with the effect of this medicine. Avoid alcoholic drinks. There are different types of narcotic medicines (opiates) for pain. If you take more than one type at the same time, you may have more side effects. Give your health care provider a list of all medicines you use. Your doctor will tell you how much medicine to take. Do not take more medicine than directed. Call emergency for help if you have problems breathing. The medicine will cause constipation. Try to have a bowel movement at least every 2 to 3 days. If you do not have a bowel movement for 3 days, call your doctor or health care coordinator. Do not take Tylenol (acetaminophen) or medicines that have acetaminophen with this medicine. Too much acetaminophen can be very dangerous. Many nonprescription medicines contain acetaminophen. Always read the labels carefully to avoid taking more acetaminophen. You have been given the following additional information: Back Pain W/ Sciatica Cyclobenzaprine Hydrochloride Oral tablet Oxycodone Hydrochloride, Acetaminophen Oral tablet (Electronically signed by Manpreet Mora Dr. 11/09/2016 9:40)
--- NOTE | 2016-11-09 09:41 | ED MED RECONCILIATION SUMMARY ---
Patient: ROYCE HOLLEY Medication Reconciliation Report [facility] VisitID: [id number] [place] [address] 71y, F Registration Date/Time: 11/06/2016 Weight: 68.0 kg Height/Length: 64 in. BMI: 25.8 ALLERGIES: Aspirin, Ibuprofen, Tylenol The patient's Home Medications are listed below: CONTINUE TAKING THE FOLLOWING MEDICATIONS: Acetaminophen Oral 325 mg, 2x a day Albuterol Sulfate Oral, Q3-4H Aspirin Oral (81 mg) Bumetanide Oral 1 mg, 1 1/2 Q daily BusPIRone HCl Oral (7.5 mg) 1 tablet, BID Carvedilol Oral (3.125 mg) 1 tablet, Q12H Combivent Respimat Inhalation (20-100 mcg/act) QID Diazepam Oral 2 mg, at bedtime Digoxin Oral (125 mcg) 1 tablet, daily Ferrous Sulfate Oral 325 mg, daily Furosemide Oral 40 mg, daily Gabapentin Oral 300 mg, QID Levothyroxine Sodium Oral (50 mcg) 1 tablet, daily Lisinopril Oral 5 mg, Q12H Magnesium Oxide Oral (400 mg) 1 tablet, BID Metolazone Oral 2.5 mg, Q mornings: mon, mon, mond Omeprazole Oral 40 mg, daily OxyCODONE HCl Oral 5 mg, noon, 4pm and 2 tabs at bedtime Potassium Chloride ER Oral (10 meq) 1 capsule, on mon, mon, monday pramipexole 0.5mg x1 tab three times daily Pravastatin Sodium Oral 20 mg, at bedtime ProAir HFA Inhalation Sertraline HCl Oral 100 mg 1 1/2 daily Spiriva HandiHaler Inhalation Spironolactone Oral 25 mg Symbicort Inhalation Torsemide Oral 20 mg x2 tabs daily Vitamin D The source(s) of the original Home Medication information: patient The following Medications were given to the patient in the Emergency Department: Flexeril [PO] PO 10 mg, administered: 11/06/2016 5:55:00 PM Oxycodone [PO] PO 5 mg, administered: 11/06/2016 5:56:00 PM Morphine [IM] IM 8 mg, administered: 11/06/2016 7:09:00 PM The following Medications were prescribed to the patient: Flexeril 10 mg: take 1 orally every 8 hours as needed for muscle spasm or pain. Dispense twenty (20). No refills. Substitution is permissible. -- Manpreet Mora Dr. Morphine sulfate IR 15 mg tab. Take one tab by mouth every 6 hours as needed for break through pain. Disp 12 tabs. No refills. Substitution allowed. -- Manpreet Mora Dr. Oxycodone 5 mg tablets: take 1 orally as needed for pain. Dispense ten (10). No refill. -- Manpreet Mora Dr.
[2016-11-11] MEDS ORDERED: FERROUS SULFAT324 M1 PO ×2 (00:50)
[2016-11-11] MEDS ORDERED: GABAPENTIN100 MG PO ×4 (00:55→00:56)
[2016-11-11] MEDS ORDERED: ADVAIR DISKU1 INH ×2 (01:06)
[2016-11-13] MEDS ORDERED: VITAMIN D-32000 UNIT PO ×2 (02:51)
[2016-11-13] MEDS ORDERED: NICOTINE T7 MG/24 HR TOP ×2 (08:31)
[2016-11-13] MEDS ORDERED: OXAYDO5 MG PO ×2 (08:38)
[2016-11-13] MEDS ORDERED: MIACALCIN200 MG/ACT ×2 (08:48)
[2016-11-13] MEDS ORDERED: PRINIVIL5 MG PO ×2 (22:53)
== END 2016-11-06 21:54 | disposition home or self-care (01) ==
LOC: ED SRH 17:05
DX: S33.5XXA Sprain of ligaments of lumbar spine, initial encounter (principal); X50.0XXA Overexertion from strenuous movement or load, initial encounter; Y93.89 Activity, other specified; Y92.019 Unspecified place in single-family (private) house as the place of occurrence of the external cause; Y99.9 Unspecified external cause status; I25.10 Atherosclerotic heart disease of native coronary artery without angina pectoris; I11.0 Hypertensive heart disease with heart failure; I50.9 Heart failure, unspecified; E78.5 Hyperlipidemia, unspecified; E78.00 Pure hypercholesterolemia, unspecified

== ENCOUNTER 2016-11-10 16:12 | Inpatient (IN) | payer OTHER ==
[~2016-11-10] VITALS: Ht 162.6 cm; Wt 66.2 kg
--- NOTE | 2016-11-10 17:27 | DIAGNOSTIC IMAGING REPORT ---
PROCEDURE: CT HEAD WITHOUT CONTRAST INDICATION: MENTAL STATUS CHANGE TECHNIQUE: Noncontrast axial images with sagittal and coronal reformations. COMPARISON: Head CT 07/23/2012. FINDINGS: Mild cortical atrophy. Normal ventricular system. Slight progression of mild chronic ischemic changes. There is no evidence of an acute CVA, hemorrhage, mass or midline shift. Visualized mastoids and sinuses are clear. IMPRESSION: 1. No acute intracranial abnormality 2. Mild atrophy and white matter chronic ischemic changes 3. Findings discussed with Dr. Islas at 05:[address] Time
--- NOTE | 2016-11-10 17:51 | DIAGNOSTIC IMAGING REPORT ---
PROCEDURE: XR CHEST 1 VIEW INDICATION: CONFUSION TECHNIQUE: Portable AP view (1730 hours). COMPARISON: Compared to chest x-ray on 09/06/2016. FINDINGS: Allowing for suboptimal inspiration, there is mild chronic basilar volume loss. Lungs are otherwise clear. Heart and mediastinum are normal. Thorax is normal. IMPRESSION: 1. Mild chronic bibasilar volume loss (findings accentuated due to suboptimal inspiration). 2. Otherwise negative chest.
--- NOTE | 2016-11-10 18:27 | ED ORDER SUMMARY ---
..... Patient: ROYCE HOLLEY OrderSheet [facility] VisitID: [id number] [address] [place] [address] 71y, F Registration Date/Time: 11/10/2016 ORDER SHEET Weight: 63.5 kg (stated) Allergies: Ibuprofen GENERAL ORDERS: Blood Culture (No) (N/A) Urgent (16:54 11/10/2016 Tarun SHRESTHA) (Ack 16:58 Maritza) (17:32 SStone R.N.) Chest 1V Urgent (16:55 11/10/2016 Tarun SHRESTHA) (Ack 16:59 Maritza) (17:25 MCampbell) Sample Collector (Continuous) (16:55 11/10/2016 Tarun SHRESTHA) (17:32 SStone R.N.) UA-Culture if indicated Urgent (16:55 11/10/2016 Tarun SHRESTHA) (Ack 16:58 Maritza) (18:10 SRoberts R.N.) Cardiac Panel Stat (16:55 11/10/2016 Tarun SHRESTHA) (Ack 16:58 Maritza) (17:32 SStone R.N.) Type & Screen Urgent (16:55 11/10/2016 Tarun SHRESTHA) (Ack 16:58 Maritza) (17:32 SStone R.N.) Ammonia Level Urgent (16:55 11/10/2016 Tarun SHRESTHA) (Ack 16:58 Maritza) (17:32 SStone R.N.) Lactate, Serum Urgent (16:55 11/10/2016 Tarun SHRESTHA) (Ack 16:58 Maritza) (17:32 SStone R.N.) CRP Urgent (16:55 11/10/2016 Tarun SHRESTHA) (Ack 16:58 Maritza) (17:32 SStone R.N.) Oxygen (2 L/min) (NC) (16:55 11/10/2016 Tarun SHRESTHA) (17:32 SStone R.N.) Pulse oximeter (16:55 11/10/2016 Tarun SHRESTHA) (17:32 SStone R.N.) EKG - ER Stat (16:55 11/10/2016 Tarun SHRESTHA) (16:58 Maritza) CT Head wo Cont Urgent (16:56 11/10/2016 Tarun SHRESTHA) (Ack 16:59 Maritza) (17:25 [facility]) TSH Urgent (16:56 11/10/2016 Tarun SHRESTHA) (Ack 16:59 Maritza) (18:15 Dianna) ABG (G) Urgent (16:59 11/10/2016 Tarun SHRESTHA) (Ack 17:01 Maritza) (18:15 Dianna) Digoxin Level Urgent (18:13 11/10/2016 Tarun SHRESTHA) (18:15 Dianna) MEDICATION ORDERS: IV FLUIDS: IV NS : initial bolus none -, then 125 mL/hr for 4h (NOW); Routine (16:54 11/10/2016 Tarun SHRESTHA) (17:27 SStone R.N.) Rocephin IV 2 gm/50mL (NOW) (18:25 11/10/2016 Tarun SHRESTHA) (18:58 SStone R.N.) ORDER SHEET NOTES: [Electronically signed by Myron Martel R.N. (20:55 11/10/2016)] [Electronically signed by Ramon Islas MD (21:35 11/10/2016)] [Electronically locked/signed by Myron Martel R.N. (20:55 11/10/2016)]
--- NOTE | 2016-11-10 18:27 | ED CLINICAL REPORT ---
Clinical Report - Physicians/Mid Levels [facility] [address] [place] [address] 11/10/2016 16:12 Patient: ROYCE HOLLEY Time Seen: 16:37 Hayder 08 2016. Arrived- By private vehicle. Historian- patient. CPT: ER phys charges level 5 plus (#[id number]). HISTORY OF PRESENT ILLNESS Chief Complaint: CHANGED MENTAL STATUS. This started 2 days ago. ( weak, fatigued, confused, pale, dizzy). The patient has been confused. 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 (Found confused by daughter yesterday.). The patient has had weakness. No numbness or recent fall. No difficulty walking. Usually is alert and oriented X3 and usually has normal mobility. Similar symptoms previously: Once, as bad (3 months ago). Hospitalized. Diagnosis: (Anemia with transfusion, pneumonia). Recent medical care: Not recently seen/assessed. REVIEW OF SYSTEMS No fever, headache, head injury, dizziness or chest pain. No difficulty breathing, cough, sputum production or sore throat or throat. No abdominal pain, nausea, diarrhea, black stools or skin rash. No vomiting, bloody stools, diabetic symptoms or easy bruising. The patient has had weakness. All systems otherwise negative, except as recorded above. PAST HISTORY ( Hepatitis [Active]. Anemia [Active]. Back Pain [Active]. Hypertension [Active]. --16:23 Leila Diez R.N. Back Pain. GI Bleeding. Pneumonia. COPD - Chronic Obstructive Pulmonary Disease. Hypoxia. Asthma. Hypothyroidism. Abnormal Test. Lifestyle / Substance Problems. Headaches. Ovarian Cancer. Depression. Hypercholesterolemia. Restless Legs Syndrome. Congestive Heart Failure. Syncope. Dehydration. Substance Abuse. Hyperlipidemia. Cancer. Osteoporosis. Valvular Heart Disease. UTI - Urinary Tract Infection. Anemia. Hyponatremia. Hypertension. Anxiety Reaction. Peptic Ulcer Disease. Myocardial Infarction. Coronary Artery Disease. Lumbar Strain. Immunizations. Fall. Bronchitis. ADDITIONAL SURGERIES: Hysterectomy. Liver Lac repair. Shoulder Surgery). Medications: Acetaminophen Oral 325 mg, 2x a day as needed. Albuterol Sulfate Oral, Q3-4H. Aspirin Oral (Tablet Chewable 81 mg). Bumetanide Oral 1 mg, 1 1/2 Q daily. BusPIRone HCl Oral (Tablet 7.5 mg) 1 tablet, BID. Carvedilol Oral (Tablet 3.125 mg) 1 tablet, Q12H. Combivent Respimat Inhalation (Aerosol Solution 20-100 mcg/act) QID. Diazepam Oral 2 mg, at bedtime. Digoxin Oral (Tablet 125 mcg) 1 tablet, daily. Ferrous Sulfate Oral 325 mg, daily. Furosemide Oral 40 mg, daily. Gabapentin Oral 300 mg, QID. Levothyroxine Sodium Oral (Tablet 50 mcg) 1 tablet, daily. Lisinopril Oral 5 mg, Q12H. Magnesium Oxide Oral (Tablet 400 mg) 1 tablet, BID. Metolazone Oral 2.5 mg, Q mornings: mon, mon, . Omeprazole Oral 40 mg, daily. OxyCODONE HCl Oral 5 mg, noon, 4pm and 2 tabs at bedtime. Potassium Chloride ER Oral (Capsule Extended Release 10 meq) 1 capsule, on mon, mon, monday. pramipexole 0.5mg x1 tab three times daily. Pravastatin Sodium Oral 20 mg, at bedtime. ProAir HFA Inhalation. Sertraline HCl Oral 100 mg 1 1/2 daily. Spiriva HandiHaler Inhalation. Spironolactone Oral 25 mg. Symbicort Inhalation. Torsemide Oral 20 mg x2 tabs daily. Vitamin D. Allergies: Ibuprofen. SOCIAL HISTORY Light tobacco smoker (cigarette)- less than 1/2 a pack per day. No alcohol use or drug use. ADDITIONAL NOTES The nursing notes have been reviewed. PHYSICAL EXAM Vital Signs: 11/10/2016 16:21 BP: 117/44. HR: 69. RR: 14. O2 saturation: 89%. Temp: 97.6 F. Pain level now: 9/10. Appearance: Alert. No acute distress. Head: Head atraumatic. Eyes: Pupils equal, round and reactive to light. ENT: Normal ENT inspection. Airway intact. Dry mucous membranes present. Pharynx normal. CVS: Normal heart rate and rhythm. 1/6 mid systolic murmur. Pulses normal. Respiratory: No respiratory distress. Breath sounds normal. Abdomen: Soft and nontender. Back: Normal inspection. Rectal: Strongly heme-positive stool; hemoccult chief vendor quality check passed. (POC test reference range: negative). Skin: Skin warm. Pallor. No rash. Extremities: Extremities exhibit normal ROM. No calf tenderness. No lower extremity edema. Neuro: Alert. Mood/affect normal. Dysarthria. Cranial nerves normal (as tested). No cerebellar findings. No motor deficit. No sensory deficit. Reflexes normal. LABS, X-RAYS, AND EKG EKG: Normal sinus rhythm. Normal P waves. Normal QRS complex. Normal axis. Non-specific ST segment / T wave abnormalities. Prior EKG unavailable. The study has been interpreted contemporaneously. The study has been independently viewed by me. The EKG appears to be a good tracing. Chest X-ray: Moderately elevated hemidiaphragm on the right (chronic). Views: AP (portable). Technique: poor inspiration. The X-rays were independently viewed by me and interpreted by the radiologist. A comparison with prior films reveals that the findings are unchanged. CT Head: No acute disease. Laboratory Tests: UA-Culture if indicated: (PHILIPPE: 11/10/2016 18:02) ( [facility] [place] 18:24[place] Final results Test Result Flag Units (Reference) URINE COLOR YELLOW URINE APPEARANCE CLEAR URINE GLUCOSE NEGATIVE (NEGATIVE) URINE BILIRUBIN NEGATIVE (NEGATIVE) URINE KETONE NEGATIVE (NEGATIVE) URINE SPECIFIC GRAVITY <= 1.005 L (1.010-1.030) URINE PH 6.0 (5.0-8.0) URINE PROTEIN NEGATIVE (NEGATIVE) URINE UROBILINOGEN 0.2 EU/dL (0.2-1.0) URINE NITRITE NEGATIVE (NEGATIVE) URINE BLOOD TRACE-INTACT (NEGATIVE) URINE LEUK ESTERASE POSITIVE (NEGATIVE) URINE RBC 0-1 rbc/hpf (0-1) URINE WBC 3-5 wbc/hpf (0-1) URINE EPITHELIAL CELLS 3-5 EPI/hpf (0-5) URINE BACTERIA FEW (1+) (NONE SEEN) URINE COMMENT CULTURE INDICATED URINE CULTURES ARE SET-UP BASED ON THE FOLLOWING CRITERIA:POSITIVE NITRITEPOSITIVE LEUKOCYTE ESTERASEGREATER THAN 10 WHITE BLOOD CELLSMODERATE (2+) OR GREATER BACTERIA CBC w Diff: (PHILIPPE: 11/10/2016 17:00) ( [facility] 11/10/2016 17:27) Final results Test Result Flag Units (Reference) WHITE BLOOD COUNT 13.7 H K/uL (4.5-11.5) RED BLOOD COUNT 3.01 L M/uL (4.00-5.20) HEMOGLOBIN 8.6 L gm/dL (12.0-16.0) HEMATOCRIT 26.5 L % (36.0-46.0) MEAN CELL VOLUME 88 fL (80-100) MEAN CORPUSCULAR HGB 28 pg (26-34) MEAN CORPUSCULAR HGB CONC 32 g/dL (31-37) RED CELL DISTRIBUTION WIDTH 17.0 H % (11.6-14.8) PLATELET COUNT 320 K/uL (150-400) NEUTROPHIL % 88.6 H % (50-75) LYMPH % 6.8 L % (25-40) MONO % 3.2 % (3-14) EOSINOPHIL % 1.1 % (0-4) BASOPHIL % 0.3 % (0-2) TSH: (PHILIPPE: 11/10/2016 17:00) ( [facility] 11/10/2016 18:08) Final results Test Result Flag Units (Reference) THYROID STIMULATING HORMONE 4.642 H uIU/mL (0.30-3.74) Ammonia Level: (PHILIPPE: 11/10/2016 17:00) ( [facility] 11/10/2016 18:06) Final results Test Result Flag Units (Reference) AMMONIA 13 umol/L (11-32) [id number]: (PHILIPPE: 11/10/2016 17:00) ( [facility] 11/10/2016 17:44) Final results Test Result Flag Units (Reference) C-REACTIVE PROTEIN 7.3 H mg/dL (0.0-0.9) Lactate, Serum: (PHILIPPE: 11/10/2016 17:00) ( [facility] 11/10/2016 18:05) Final results Test Result Flag Units (Reference) LACTIC ACID 0.8 mmol/L (0.4-2.0) CHEM 13 PANEL: (PHILIPPE: 11/10/2016 17:00) ( [facility] 11/10/2016 17:50) Final results Test Result Flag Units (Reference) GLUCOSE 104 mg/dL (70-110) BUN 63 H mg/dL (7-18) CREATININE 1.7 H mg/dL (0.6-1.3) Estimated GFR 31.31 mL/min Estimated GFR- 37.95 mL/min Note: Persistent reduction over 3 months in eGFR<60 mL/min/1.73 m2 defines CKD. Patients with eGFR values>=60 mL/min/1.73 m2 may also have CKD if evidence ofpersistent proteinuria. Additional information may be foundat www.kidney.org. SODIUM 139 mmol/L (136-145) POTASSIUM 3.7 mmol/L (3.5-5.1) CHLORIDE 100 mmol/L (98-107) CARBON DIOXIDE 31 mmol/L (21-32) CALCIUM 8.3 L mg/dL (8.5-10.1) TOTAL PROTEIN 8.2 g/dL (6.4-8.2) ALBUMIN 3.2 L g/dL (3.3-5.0) BILIRUBIN, TOTAL 0.4 mg/dL (0.0-1.0) ALKALINE PHOSPHATASE 127 H U/L (46-116) AST (SGOT) 23 U/L (15-37) ALT (SGPT) 20 U/L (12-78) CPK 74 U/L (24-260) MAGNESIUM 2.3 mg/dL (1.8-2.4) TROPONIN I 0.05 ng/mL (0.00-1.5) TROPONIN REFERENCE RANGE:<0.1 NEGATIVE0.1-1.5 INDETERMINANT>1.5 POSITIVE ABG: (PHILIPPE: 11/10/2016 16:59) ( MsgRcvd 11/10/2016 18:19) Final results Test Result Flag Units (Reference) FIO2 0.21 L % (20-101) ABG MODE OF DELIVERY RA MODIFIED RAKESH TEST POSITIVE? YES ABG PATIENT RESP RATE 18 /MIN ARTERIAL BLOOD GAS SITE RR ARTERIAL BLOOD GAS pH 7.43 (7.35-7.45) ABG PCO2 47.4 H mmHg (35-45) ABG PO2 70.6 mmHg (60.0-80.0) ABG BASE EXCESS 6.5 H mmol/L (-6.0--6.0) ABG HCO3 31.4 *H mmol/L (20.0-26.0) ABG TCO2 32.8 H mmol/L (24.0-30.0) ABG KcPqL2a 24.0 H mmHg (7.0-14.0) *NOTE: Normal rangeis based on aFIO2 of 21% ABG SAT O2 95.0 L % (95.1-100.0) ABG TOTAL HEMOGLOBIN 8.3 L g/dL (12.0-16.0) ABG O2 HEMOGLOBIN 91.7 L % (95.0-100.0) ABG CARBOXYHEMOGLOBIN 3.8 H % (0.5-1.5) ABG METHEMOGLOBIN -0.3 L % (0.4-1.5) ABG RHEMOGLOBIN 4.8 % . PROGRESS AND PROCEDURES Course of Care: IV NS 125 per hour Rocephin 2g IV Patient is stable. Patient/family counseled. Old medical records ordered. Disposition orders written. Disposition: Admitted to Acute Care. CLINICAL IMPRESSION Acute mental status change with confusion. Acute urinary tract infection with cystitis. Moderate chronic iron deficiency anemia from chronic blood loss. Guaiac positive. (Electronically signed by Ramon Islas MD 11/10/2016 21:35)
--- NOTE | 2016-11-10 18:27 | ED NURSING NOTES ---
Clinical Report - Nurses [facility] [address] [place] [address] 11/10/2016 16:12 Patient: ROYCE HOLLEY TRIAGE Triage time 16:21. Acuity: LEVEL 3. Chief Complaint: ALTERED MENTAL STATUS and CONFUSED. SEPSIS SCREEN: Sepsis Screen: negative. Negative (no infection suspected/documented). Acute mental status change. --16:27 Leila Diez R.N. 16:21 11/10/16. BP: 117/44. HR: 69. RR: 14. O2 saturation: 89%. Temp: 97.6 F. Pain level now: 02/12. --16:27 Leila Diez R.N. Weight: 63.5 kg stated. Height/Length: 64 inches Per Patient. BMI: 24. --16:23 Leila Diez R.N. Medications Acetaminophen Oral 325 mg, 2x a day as needed. Albuterol Sulfate Oral, Q3-4H. Aspirin Oral (Tablet Chewable 81 mg). Bumetanide Oral 1 mg, 1 1/2 Q daily. BusPIRone HCl Oral (Tablet 7.5 mg) 1 tablet, BID. Carvedilol Oral (Tablet 3.125 mg) 1 tablet, Q12H. Combivent Respimat Inhalation (Aerosol Solution 20-100 mcg/act) QID. Diazepam Oral 2 mg, at bedtime. Digoxin Oral (Tablet 125 mcg) 1 tablet, daily. Ferrous Sulfate Oral 325 mg, daily. Furosemide Oral 40 mg, daily. Gabapentin Oral 300 mg, QID. Levothyroxine Sodium Oral (Tablet 50 mcg) 1 tablet, daily. Lisinopril Oral 5 mg, Q12H. Magnesium Oxide Oral (Tablet 400 mg) 1 tablet, BID. Metolazone Oral 2.5 mg, Q mornings: mon, wed, frid. Omeprazole Oral 40 mg, daily. OxyCODONE HCl Oral 5 mg, noon, 4pm and 2 tabs at bedtime. Potassium Chloride ER Oral (Capsule Extended Release 10 meq) 1 capsule, on mon, wed, radha. pramipexole 0.5mg x1 tab three times daily. Pravastatin Sodium Oral 20 mg, at bedtime. ProAir HFA Inhalation. Sertraline HCl Oral 100 mg 1 1/2 daily. Spiriva HandiHaler Inhalation. Spironolactone Oral 25 mg. Symbicort Inhalation. Torsemide Oral 20 mg x2 tabs daily. Vitamin D. --16: Leila Diez R.N. Allergies Ibuprofen. -- Leila Diez R.N. History Arrived by private vehicle. Historian: patient and family. Accompanied by family and (daughter- Noemi). This started 2 days ago. ( weak, fatigued, confused, pale, dizzy). ( Pt Dx with "slow bleed" possibly in the GI tract). -- Leila Diez R.N. SOCIAL HX: Current every day light tobacco smoker (cigarette)- less than 1/2 a pack per day. No alcohol use or drug use. --19:03 Leila Diez R.N. PROBLEMS: Hepatitis [Active]. Anemia [Active]. Back Pain [Active]. Hypertension [Active]. -- Leila Diez R.N. Back Pain. GI Bleeding. Pneumonia. COPD - Chronic Obstructive Pulmonary Disease. Hypoxia. Asthma. Hypothyroidism. Abnormal Test. Lifestyle / Substance Problems. Headaches. Ovarian Cancer. Depression. Hypercholesterolemia. Restless Legs Syndrome. Congestive Heart Failure. Syncope. Dehydration. Substance Abuse. Hyperlipidemia. Cancer. Osteoporosis. Valvular Heart Disease. UTI - Urinary Tract Infection. Anemia. Hyponatremia. Hypertension. Anxiety Reaction. Peptic Ulcer Disease. Myocardial Infarction. Coronary Artery Disease. Lumbar Strain. Immunizations. Fall. Bronchitis. --16 Leila Diez R.N. ADDITIONAL SURGERIES: Hysterectomy. Liver Lac repair. Shoulder Surgery. --: Leila Diez R.N. Interventions ID band on patient. -- Leila Diez R.N. PHYSICAL ASSESSMENT GENERAL / NEURO / PSYCH: Decreased awareness. The patient is disoriented to time and situation. Patient's speech is whispered (rambling, sometimes incoherent). She has had weakness. RESPIRATORY: Respirations not labored. Bilateral rhonchi present in the bases. CVS: Normal sinus rhythm noted. Capillary refill less than 2 seconds. GI / : Abdomen soft and nontender. Bowel sounds within normal limits. SKIN: Skin is pale. Skin is warm and dry. BACK: Limited ROM in the back. Vertebral point tenderness. --17:48 Leila Diez R.N. NURSING PROGRESS NOTES EKG time: (1646). EKG was ordered, performed by a tech and shown to the ED physician. --17:00 Genevieve Martel 17:07 11/10/16. BP: 109/52. HR: 69. RR: 14. O2 saturation: 100% at 2 liters/minute. --17:08 Leila Diez R.N. ( Patient out to imaging with tech.). --17:08 Leila Diez R.N. 17:09 11/10/2016 Site #1 started via IV in the right antecubital space with an 20g angiocath; four attempts (3 attempts by FRANCESCA Dee. 1 attempt by FRANCESCA Hernandez). --17:09 Leila Diez R.N. 17:27 11/10/2016 Started bag #1 1000 mL IV Fluids IV NS (Saline); at 125 mL/hr over 6 hour(s) via site #1 --17:27 Leila Diez R.N. <<STRICKEN ENTRY-- 17:32 11/10/16. BP: 123/88. HR: 66. O2 saturation: 94%. --17:33 Leila Diez R.N. --END STRIKE>> Charted on wrong patient. --18:29 Leila Diez R.N. Oxygen administered by nasal cannula at 2 liters. quality assurance monitor chassis, pulse oximeter and NIBP monitor placed on patient. Patient gowned. Head of bed elevated. Reassurance given. Call light placed in reach. Side rails up x 2. Bed placed in lowest position. --17:33 Leila Diez R.N. 17:18 11/10/2016 Site #2 started via IV in the left antecubital space with an 22g angiocath; one attempt. --17:33 Leila Diez R.N. ( pt assisted to BSC with two-person assist. Urine collected and sent to lab.). --18:07 Leila Diez R.N. 18:29 11/10/16. BP: 93/35. HR: 63. RR: 14. O2 saturation: 95% at 2 liters/minute. O2 started via nasal cannula. --18:30 Leila Diez R.N. ( notified of Pt. BP. Bolus initiated,). --18:31 Leila Diez R.N. 18:42 11/10/16. BP: 87/30. HR: 62. RR: 14. O2 saturation: 92% at 3 liters/minute. --18:42 Leila Diez R.N. 18:56 11/10/16. BP: 101/39. HR: 65. RR: 14. O2 saturation: 100% at 2 liters/minute. --18:58 Lelia Diez R.N. 18:25 11/10/2016 Started 2 gm of Rocephin (CefTRIAXone Sodium) IVPB in bag #1 50 mL; at 100 mL/hr over 30 minute(s) via site #2 via IV pump. --18:59 Leila Diez R.N. 18:59 11/10/2016 Rocephin IVPB Discontinued: bag #1 infused. Total amount infused: 50 mL. IV patency established. IV site checked: no pain, redness, or swelling. IV flushed thoroughly. --18:59 Leila Diez R.N. Cardiac rhythm: normal sinus rhythm. Reassessment after fluids administered. She is calm and resting quietly. GENERAL / NEURO / PSYCH: Patient is calm and cooperative. RESPIRATORY: No respiratory distress. CVS: Normal sinus rhythm noted. SKIN: Skin is warm and dry. --19:46 Myron Martel R.N. 19:44 11/10/16. BP: 108/53. HR: 62. RR: 16. O2 saturation: 97%. Temp: 97.9 F. --19:46 Myron Martel R.N. ( Patient given PO fluids per provider okay. Patient has no complaints at this time). --20:05 Elvie Gomez Cardiac rhythm: normal sinus rhythm. Reassessment after fluids administered. She is calm and resting quietly. GENERAL / NEURO / PSYCH: Patient is calm and cooperative. Affect appears normal. Alert. RESPIRATORY: No respiratory distress. CVS: Normal sinus rhythm noted. SKIN: Skin is warm and dry. --20:29 Myron Martel R.N. 20:28 11/10/16. BP: 107/47. HR: 67. RR: 16. O2 saturation: 95%. Temp: 98.0 F. --20:29 Myron Martel R.N. DISPOSITION / DISCHARGE Admitted to Acute Care. Transported via stretcher by transport team with O2. Report was given to a nurse via a phone call. Report included patient's care, treatment, medications, reviewed medication reconcilliation, and condition (including any recent changes or anticipated changes). All questions were answered. Report was acknowledged. (Quinton MA). --20:48 Myron Martel R.N. 20:46 11/10/16. BP: 104/47. HR: 65. RR: 16. O2 saturation: 95% on nasal cannula at 3 liters/minute. Pain level now: 0/10. --20:48 Myron Martel R.N. Departure time: 20:53. --20:53 Myron Martel R.N. Locked/Released at 11/10/2016 20:56 by Myron Martel R.N.
--- NOTE | 2016-11-10 18:27 | ED ORDER SUMMARY ---
..... Patient: ROYCE HOLLEY OrderSheet [facility] VisitID: [id number] [address] [place] [address] 71y, F Registration Date/Time: 11/10/2016 ORDER SHEET Weight: 63.5 kg (stated) Allergies: Ibuprofen GENERAL ORDERS: Blood Culture (No) (N/A) Urgent (16:54 11/10/2016 Tarun SHRESTHA) (Ack 16:58 Maritza) (17:32 SStone R.N.) Chest 1V Urgent (16:55 11/10/2016 Tarun SHRESTHA) (Ack 16:59 Maritza) (17:25 MCampbell) Mobile Health Vehicle Operator (Continuous) (16:55 11/10/2016 Tarun SHRESTHA) (17:32 SStone R.N.) UA-Culture if indicated Urgent (16:55 11/10/2016 Tarun SHRESTHA) (Ack 16:58 Maritza) (18:10 SRoberts R.N.) Cardiac Panel Stat (16:55 11/10/2016 Tarun SHRESTHA) (Ack 16:58 Maritza) (17:32 SStone R.N.) Type & Screen Urgent (16:55 11/10/2016 Tarun SHRESTHA) (Ack 16:58 Maritza) (17:32 SStone R.N.) Ammonia Level Urgent (16:55 11/10/2016 Tarun SHRESTHA) (Ack 16:58 Maritza) (17:32 SStone R.N.) Lactate, Serum Urgent (16:55 11/10/2016 Tarun SHRESTHA) (Ack 16:58 Maritza) (17:32 SStone R.N.) CRP Urgent (16:55 11/10/2016 Tarun SHRESTHA) (Ack 16:58 Maritza) (17:32 SStone R.N.) Oxygen (2 L/min) (NC) (16:55 11/10/2016 Tarun SHRESTHA) (17:32 SStone R.N.) Pulse oximeter (16:55 11/10/2016 Tarun SHRESTHA) (17:32 SStone R.N.) EKG - ER Stat (16:55 11/10/2016 Tarun SHRESTHA) (16:58 Maritza) CT Head wo Cont Urgent (16:56 11/10/2016 Tarun SHRESTHA) (Ack 16:59 Maritza) (17:25 [facility]) TSH Urgent (16:56 11/10/2016 Tarun SHRESTHA) (Ack 16:59 Maritza) (18:15 Dianna) ABG (G) Urgent (16:59 11/10/2016 Tarun SHRESTHA) (Ack 17:01 Maritza) (18:15 Dianna) Digoxin Level Urgent (18:13 11/10/2016 Tarun SHRESTHA) (18:15 Dianna) MEDICATION ORDERS: IV FLUIDS: IV NS : initial bolus none -, then 125 mL/hr for 4h (NOW); Routine (16:54 11/10/2016 Tarun SHRESTHA) (17:27 SStone R.N.) Rocephin IV 2 gm/50mL (NOW) (18:25 11/10/2016 Tarun SHRESTHA) (18:58 SStone R.N.) ORDER SHEET NOTES: [Electronically signed by Myron Martel R.N. (20:55 11/10/2016)] [Electronically signed by Ramon Islas MD (21:35 11/10/2016)] [Electronically locked/signed by Myron Martel R.N. (20:55 11/10/2016)]
--- NOTE | 2016-11-10 18:27 | ED CLINICAL REPORT ---
Clinical Report - Physicians/Mid Levels [facility] [address] [place] [address] 11/10/2016 16:12 Patient: ROYCE HOLLEY Time Seen: 16:37 Hayder 08 2016. Arrived- By private vehicle. Historian- patient. CPT: ER phys charges level 5 plus (#[id number]). HISTORY OF PRESENT ILLNESS Chief Complaint: CHANGED MENTAL STATUS. This started 2 days ago. ( weak, fatigued, confused, pale, dizzy). The patient has been confused. This started yesterday about 2 days [employer] and is still present. (Found confused by daughter yesterday.). The patient has had weakness. No numbness or recent fall. No difficulty walking. Usually is alert and oriented X3 and usually has normal mobility. Similar symptoms previously: Once, as bad (3 months ago). Hospitalized. Diagnosis: (Anemia with transfusion, pneumonia). Recent medical care: Not recently seen/assessed. REVIEW OF SYSTEMS No fever, headache, head injury, dizziness or chest pain. No difficulty breathing, cough, sputum production or sore throat or throat. No abdominal pain, nausea, diarrhea, black stools or skin rash. No vomiting, bloody stools, diabetic symptoms or easy bruising. The patient has had weakness. All systems otherwise negative, except as recorded above. PAST HISTORY ( Hepatitis [Active]. Anemia [Active]. Back Pain [Active]. Hypertension [Active]. --16:23 Leila Diez R.N. Back Pain. GI Bleeding. Pneumonia. COPD - Chronic Obstructive Pulmonary Disease. Hypoxia. Asthma. Hypothyroidism. Abnormal Test. Lifestyle / Substance Problems. Headaches. Ovarian Cancer. Depression. Hypercholesterolemia. Restless Legs Syndrome. Congestive Heart Failure. Syncope. Dehydration. Substance Abuse. Hyperlipidemia. Cancer. Osteoporosis. Valvular Heart Disease. UTI - Urinary Tract Infection. Anemia. Hyponatremia. Hypertension. Anxiety Reaction. Peptic Ulcer Disease. Myocardial Infarction. Coronary Artery Disease. Lumbar Strain. Immunizations. Fall. Bronchitis. ADDITIONAL SURGERIES: Hysterectomy. Liver Lac repair. Shoulder Surgery). Medications: Acetaminophen Oral 325 mg, 2x a day as needed. Albuterol Sulfate Oral, Q3-4H. Aspirin Oral (Tablet Chewable 81 mg). Bumetanide Oral 1 mg, 1 1/2 Q daily. BusPIRone HCl Oral (Tablet 7.5 mg) 1 tablet, BID. Carvedilol Oral (Tablet 3.125 mg) 1 tablet, Q12H. Combivent Respimat Inhalation (Aerosol Solution 20-100 mcg/act) QID. Diazepam Oral 2 mg, at bedtime. Digoxin Oral (Tablet 125 mcg) 1 tablet, daily. Ferrous Sulfate Oral 325 mg, daily. Furosemide Oral 40 mg, daily. Gabapentin Oral 300 mg, QID. Levothyroxine Sodium Oral (Tablet 50 mcg) 1 tablet, daily. Lisinopril Oral 5 mg, Q12H. Magnesium Oxide Oral (Tablet 400 mg) 1 tablet, BID. Metolazone Oral 2.5 mg, Q mornings: mon, mon, . Omeprazole Oral 40 mg, daily. OxyCODONE HCl Oral 5 mg, noon, 4pm and 2 tabs at bedtime. Potassium Chloride ER Oral (Capsule Extended Release 10 meq) 1 capsule, on mon, mon, monday. pramipexole 0.5mg x1 tab three times daily. Pravastatin Sodium Oral 20 mg, at bedtime. ProAir HFA Inhalation. Sertraline HCl Oral 100 mg 1 1/2 daily. Spiriva HandiHaler Inhalation. Spironolactone Oral 25 mg. Symbicort Inhalation. Torsemide Oral 20 mg x2 tabs daily. Vitamin D. Allergies: Ibuprofen. SOCIAL HISTORY Light tobacco smoker (cigarette)- less than 1/2 a pack per day. No alcohol use or drug use. ADDITIONAL NOTES The nursing notes have been reviewed. PHYSICAL EXAM Vital Signs: 11/10/2016 16:21 BP: 117/44. HR: 69. RR: 14. O2 saturation: 89%. Temp: 97.6 F. Pain level now: 9/10. Appearance: Alert. No acute distress. Head: Head atraumatic. Eyes: Pupils equal, round and reactive to light. ENT: Normal ENT inspection. Airway intact. Dry mucous membranes present. Pharynx normal. CVS: Normal heart rate and rhythm. 1/6 mid systolic murmur. Pulses normal. Respiratory: No respiratory distress. Breath sounds normal. Abdomen: Soft and nontender. Back: Normal inspection. Rectal: Strongly heme-positive stool; hemoccult quality head check passed. (POC test reference range: negative). Skin: Skin warm. Pallor. No rash. Extremities: Extremities exhibit normal ROM. No calf tenderness. No lower extremity edema. Neuro: Alert. Mood/affect normal. Dysarthria. Cranial nerves normal (as tested). No cerebellar findings. No motor deficit. No sensory deficit. Reflexes normal. LABS, X-RAYS, AND EKG EKG: Normal sinus rhythm. Normal P waves. Normal QRS complex. Normal axis. Non-specific ST segment / T wave abnormalities. Prior EKG unavailable. The study has been interpreted contemporaneously. The study has been independently viewed by me. The EKG appears to be a good tracing. Chest X-ray: Moderately elevated hemidiaphragm on the right (chronic). Views: AP (portable). Technique: poor inspiration. The X-rays were independently viewed by me and interpreted by the radiologist. A comparison with prior films reveals that the findings are unchanged. CT Head: No acute disease. Laboratory Tests: UA-Culture if indicated: (PHILIPPE: 11/10/2016 18:02) ( [facility] 11/10/2016 18:24) Final results Test Result Flag Units (Reference) URINE COLOR YELLOW URINE APPEARANCE CLEAR URINE GLUCOSE NEGATIVE (NEGATIVE) URINE BILIRUBIN NEGATIVE (NEGATIVE) URINE KETONE NEGATIVE (NEGATIVE) URINE SPECIFIC GRAVITY <= 1.005 L (1.010-1.030) URINE PH 6.0 (5.0-8.0) URINE PROTEIN NEGATIVE (NEGATIVE) URINE UROBILINOGEN 0.2 EU/dL (0.2-1.0) URINE NITRITE NEGATIVE (NEGATIVE) URINE BLOOD TRACE-INTACT (NEGATIVE) URINE LEUK ESTERASE POSITIVE (NEGATIVE) URINE RBC 0-1 rbc/hpf (0-1) URINE WBC 3-5 wbc/hpf (0-1) URINE EPITHELIAL CELLS 3-5 EPI/hpf (0-5) URINE BACTERIA FEW (1+) (NONE SEEN) URINE COMMENT CULTURE INDICATED URINE CULTURES ARE SET-UP BASED ON THE FOLLOWING CRITERIA:POSITIVE NITRITEPOSITIVE LEUKOCYTE ESTERASEGREATER THAN 10 WHITE BLOOD CELLSMODERATE (2+) OR GREATER BACTERIA CBC w Diff: (PHILIPPE: 11/10/2016 17:00) ( [facility] 11/10/2016 17:27) Final results Test Result Flag Units (Reference) WHITE BLOOD COUNT 13.7 H K/uL (4.5-11.5) RED BLOOD COUNT 3.01 L M/uL (4.00-5.20) HEMOGLOBIN 8.6 L gm/dL (12.0-16.0) HEMATOCRIT 26.5 L % (36.0-46.0) MEAN CELL VOLUME 88 fL (80-100) MEAN CORPUSCULAR HGB 28 pg (26-34) MEAN CORPUSCULAR HGB CONC 32 g/dL (31-37) RED CELL DISTRIBUTION WIDTH 17.0 H % (11.6-14.8) PLATELET COUNT 320 K/uL (150-400) NEUTROPHIL % 88.6 H % (50-75) LYMPH % 6.8 L % (25-40) MONO % 3.2 % (3-14) EOSINOPHIL % 1.1 % (0-4) BASOPHIL % 0.3 % (0-2) TSH: (PHILIPPE: 11/10/2016 17:00) ( [facility] 11/10/2016 18:08) Final results Test Result Flag Units (Reference) THYROID STIMULATING HORMONE 4.642 H uIU/mL (0.30-3.74) Ammonia Level: (PHILIPPE: 11/10/2016 17:00) ( [facility] 11/10/2016 18:06) Final results Test Result Flag Units (Reference) AMMONIA 13 umol/L (11-32) [id number]: (PHILIPPE: 11/10/2016 17:00) ( [facility] 11/10/2016 17:44) Final results Test Result Flag Units (Reference) C-REACTIVE PROTEIN 7.3 H mg/dL (0.0-0.9) Lactate, Serum: (PHILIPPE: 11/10/2016 17:00) ( [facility] 11/10/2016 18:05) Final results Test Result Flag Units (Reference) LACTIC ACID 0.8 mmol/L (0.4-2.0) CHEM 13 PANEL: (PHILIPPE: 11/10/2016 17:00) ( MsgRcv[facility] 11/10/2016 17:50) Final results Test Result Flag Units (Reference) GLUCOSE 104 mg/dL (70-110) BUN 63 H mg/dL (7-18) CREATININE 1.7 H mg/dL (0.6-1.3) Estimated GFR 31.31 mL/min Estimated GFR- 37.95 mL/min Note: Persistent reduction over 3 months in eGFR<60 mL/min/1.73 m2 defines CKD. Patients with eGFR values>=60 mL/min/1.73 m2 may also have CKD if evidence ofpersistent proteinuria. Additional information may be foundat www.kidney.org. SODIUM 139 mmol/L (136-145) POTASSIUM 3.7 mmol/L (3.5-5.1) CHLORIDE 100 mmol/L (98-107) CARBON DIOXIDE 31 mmol/L (21-32) CALCIUM 8.3 L mg/dL (8.5-10.1) TOTAL PROTEIN 8.2 g/dL (6.4-8.2) ALBUMIN 3.2 L g/dL (3.3-5.0) BILIRUBIN, TOTAL 0.4 mg/dL (0.0-1.0) ALKALINE PHOSPHATASE 127 H U/L (46-116) AST (SGOT) 23 U/L (15-37) ALT (SGPT) 20 U/L (12-78) CPK 74 U/L (24-260) MAGNESIUM 2.3 mg/dL (1.8-2.4) TROPONIN I 0.05 ng/mL (0.00-1.5) TROPONIN REFERENCE RANGE:<0.1 NEGATIVE0.1-1.5 INDETERMINANT>1.5 POSITIVE ABG: (PHILIPPE: 11/10/2016 16:59) ( MsgRcvd 11/10/2016 18:19) Final results Test Result Flag Units (Reference) FIO2 0.21 L % (20-101) ABG MODE OF DELIVERY RA MODIFIED RAKESH TEST POSITIVE? YES ABG PATIENT RESP RATE 18 /MIN ARTERIAL BLOOD GAS SITE RR ARTERIAL BLOOD GAS pH 7.43 (7.35-7.45) ABG PCO2 47.4 H mmHg (35-45) ABG PO2 70.6 mmHg (60.0-80.0) ABG BASE EXCESS 6.5 H mmol/L (-6.0--6.0) ABG HCO3 31.4 *H mmol/L (20.0-26.0) ABG TCO2 32.8 H mmol/L (24.0-30.0) ABG SpUnV1x 24.0 H mmHg (7.0-14.0) *NOTE: Normal rangeis based on aFIO2 of 21% ABG SAT O2 95.0 L % (95.1-100.0) ABG TOTAL HEMOGLOBIN 8.3 L g/dL (12.0-16.0) ABG O2 HEMOGLOBIN 91.7 L % (95.0-100.0) ABG CARBOXYHEMOGLOBIN 3.8 H % (0.5-1.5) ABG METHEMOGLOBIN -0.3 L % (0.4-1.5) ABG RHEMOGLOBIN 4.8 % . PROGRESS AND PROCEDURES Course of Care: IV NS 125 per hour Rocephin 2g IV Patient is stable. Patient/family counseled. Old medical records ordered. Disposition orders written. Disposition: Admitted to Acute Care. CLINICAL IMPRESSION Acute mental status change with confusion. Acute urinary tract infection with cystitis. Moderate chronic iron deficiency anemia from chronic blood loss. Guaiac positive. (Electronically signed by Ramon Islas MD 11/10/2016 21:35)
[2016-11-10 21:22] VITALS: BP 128/51
--- NOTE | 2016-11-10 21:35 | ED MAR SUMMARY ---
..... Medication Administration Record [facility] [address] [place] [address] Patient: ROYCE HOLLEY Visit ID: [id number] 71y, F Weight: 63.5 kg Height/Length: 64 in BMI: 24 ALLERGIES: Ibuprofen Start 17:27 11/10/2016 Leila Diez R.N. Medication Administered: IV NS (SALINE), Dose: IV Fluids over 6 hour(s), Rate: 125 mL/hr, Dispensed: 1000 mL bag, Site: #1 right AC. Medication Ordered: IV NS : initial bolus none -, then 125 mL/hr for 4h (NOW); Routine. Start 18:25 11/10/2016 Leila Diez R.N., Stop 18:59 11/10/2016 Leila Diez R.N. Medication Administered: ROCEPHIN [IVPB] (CEFTRIAXONE SODIUM), Dose: 2 gm IVPB over 30 minute(s), Rate: 100 mL/hr, Dispensed: 50 mL bag, Site: #2 left AC. Medication Ordered: Rocephin IV 2 gm/50mL (NOW).
--- NOTE | 2016-11-10 21:35 | ED MAR SUMMARY ---
..... Medication Administration Record [facility] [address] [place] [address] Patient: ROYCE HOLLEY Visit ID: [id number] 71y, F Weight: 63.5 kg Height/Length: 64 in BMI: 24 ALLERGIES: Ibuprofen Start 17:27 11/10/2016 Leila Diez R.N. Medication Administered: IV NS (SALINE), Dose: IV Fluids over 6 hour(s), Rate: 125 mL/hr, Dispensed: 1000 mL bag, Site: #1 right AC. Medication Ordered: IV NS : initial bolus none -, then 125 mL/hr for 4h (NOW); Routine. Start 18:25 11/10/2016 Leila Diez R.N., Stop 18:59 11/10/2016 Leila Diez R.N. Medication Administered: ROCEPHIN [IVPB] (CEFTRIAXONE SODIUM), Dose: 2 gm IVPB over 30 minute(s), Rate: 100 mL/hr, Dispensed: 50 mL bag, Site: #2 left AC. Medication Ordered: Rocephin IV 2 gm/50mL (NOW).
--- NOTE | 2016-11-10 21:35 | ED MED RECONCILIATION SUMMARY ---
Patient: ROYCE HOLLEY Medication Reconciliation Report [facility] VisitID: [id number] [address] [place] [address] 71y, F Registration Date/Time: 11/10/2016 Weight: 63.5 kg Height/Length: 64 in. BMI: 24.0 ALLERGIES: Ibuprofen The patient's Home Medications are listed below: THE FOLLOWING MEDICATIONS NEED TO BE RECONCILED: Acetaminophen Oral 325 mg, 2x a day Albuterol Sulfate Oral, Q3-4H Aspirin Oral (81 mg) Bumetanide Oral 1 mg, 1 1/2 Q daily BusPIRone HCl Oral (7.5 mg) 1 tablet, BID Carvedilol Oral (3.125 mg) 1 tablet, Q12H Combivent Respimat Inhalation (20-100 mcg/act) QID Diazepam Oral 2 mg, at bedtime Digoxin Oral (125 mcg) 1 tablet, daily Ferrous Sulfate Oral 325 mg, daily Furosemide Oral 40 mg, daily Gabapentin Oral 300 mg, QID Levothyroxine Sodium Oral (50 mcg) 1 tablet, daily Lisinopril Oral 5 mg, Q12H Magnesium Oxide Oral (400 mg) 1 tablet, BID Metolazone Oral 2.5 mg, Q mornings: mon, mon, mond Omeprazole Oral 40 mg, daily OxyCODONE HCl Oral 5 mg, noon, 4pm and 2 tabs at bedtime Potassium Chloride ER Oral (10 meq) 1 capsule, on mon, mon, monday pramipexole 0.5mg x1 tab three times daily Pravastatin Sodium Oral 20 mg, at bedtime ProAir HFA Inhalation Sertraline HCl Oral 100 mg 1 1/2 daily Spiriva HandiHaler Inhalation Spironolactone Oral 25 mg Symbicort Inhalation Torsemide Oral 20 mg x2 tabs daily Vitamin D The source(s) of the original Home Medication information: Not obtained. The following Medications were given to the patient in the Emergency Department: IV NS IV Fluids bolus 0, then 125 mL/hr, administered: 11/10/2016 5:27:00 PM Rocephin [IVPB] IVPB bolus 0, then 2 gm 100 mL/hr, administered: 11/10/2016 6:25:00 PM The following Medications were prescribed to the patient: None.
--- NOTE | 2016-11-10 21:35 | ED DISCHARGE INSTRUCTIONS ---
Patient: ROYCE HOLLEY General Instructions [facility] VisitID: [id number] [place] [address] 71y, F Registration Date/Time: 11/10/2016 Acute mental status change with confusion. Acute urinary tract infection with cystitis. Moderate chronic iron deficiency anemia from chronic blood loss. Guaiac positive. ADDITIONAL INFORMATION Bladder Infection,Female (Adult) A bladder infection ("cystitis" or "UTI") usually causes a constant urge to urinate and a burning when passing urine. Urine may be cloudy, smelly or dark. There may be pain in the lower abdomen. A bladder infection occurs when bacteria from the vaginal area enter the bladder opening (urethra). This can occur from sexual intercourse, wearing tight clothing, dehydration and other factors. Home Care: Drink lots of fluids (at least 6-8 glasses a day, unless you must restrict fluids for other medical reasons). This will force the medicine into your urinary system and flush the bacteria out of your body. Avoid sexual intercourse until your symptoms are gone. Avoid caffeine, alcohol and spicy foods. These can irritate the bladder. A bladder infection is treated with antibiotics. You may also be given Pyridium (generic = phenazopyridine) to reduce the burning sensation. This medicine will cause your urine to become a bright orange color. The orange urine may stain clothing. You may wear a pad or panty-liner to protect clothing. Preventing Future Infections: Always wipe from front to back after a bowel movement. Keep the genital area clean and dry. Drink plenty of fluids each day to avoid dehydration. Both sexual partners should wash before intercourse. Urinate right after intercourse to flush out the bladder. Wear cotton underwear and cotton-lined panty hose; avoid tight-fitting pants. If you are on control pills and are having frequent bladder infections, discuss with your doctor. Follow Up: Return to this facility or see your doctor if ALL symptoms are not gone after three days of treatment. Get Prompt Medical Attention if any of the following occur: Fever of 100.4F (38C) or higher, or as directed by your healthcare provider No improvement by the third day of treatment Increasing back or abdominal pain Repeated vomiting; unable to keep medicine down Weakness, dizziness or fainting Vaginal discharge Pain, redness or swelling in the labia (outer vaginal area) You have been given the following additional information: Bladder Infection, Female (Adult) (Electronically signed by Ramon Islas MD 11/10/2016 21:35)
--- NOTE | 2016-11-10 21:35 | ED MED RECONCILIATION SUMMARY ---
Patient: ROYCE HOLLEY Medication Reconciliation Report [facility] VisitID: [id number] [address] [place] [address] 71y, F Registration Date/Time: 11/10/2016 Weight: 63.5 kg Height/Length: 64 in. BMI: 24.0 ALLERGIES: Ibuprofen The patient's Home Medications are listed below: THE FOLLOWING MEDICATIONS NEED TO BE RECONCILED: Acetaminophen Oral 325 mg, 2x a day Albuterol Sulfate Oral, Q3-4H Aspirin Oral (81 mg) Bumetanide Oral 1 mg, 1 1/2 Q daily BusPIRone HCl Oral (7.5 mg) 1 tablet, BID Carvedilol Oral (3.125 mg) 1 tablet, Q12H Combivent Respimat Inhalation (20-100 mcg/act) QID Diazepam Oral 2 mg, at bedtime Digoxin Oral (125 mcg) 1 tablet, daily Ferrous Sulfate Oral 325 mg, daily Furosemide Oral 40 mg, daily Gabapentin Oral 300 mg, QID Levothyroxine Sodium Oral (50 mcg) 1 tablet, daily Lisinopril Oral 5 mg, Q12H Magnesium Oxide Oral (400 mg) 1 tablet, BID Metolazone Oral 2.5 mg, Q mornings: mon, mon, mond Omeprazole Oral 40 mg, daily OxyCODONE HCl Oral 5 mg, noon, 4pm and 2 tabs at bedtime Potassium Chloride ER Oral (10 meq) 1 capsule, on mon, mon, monday pramipexole 0.5mg x1 tab three times daily Pravastatin Sodium Oral 20 mg, at bedtime ProAir HFA Inhalation Sertraline HCl Oral 100 mg 1 1/2 daily Spiriva HandiHaler Inhalation Spironolactone Oral 25 mg Symbicort Inhalation Torsemide Oral 20 mg x2 tabs daily Vitamin D The source(s) of the original Home Medication information: Not obtained. The following Medications were given to the patient in the Emergency Department: IV NS IV Fluids bolus 0, then 125 mL/hr, administered: 11/10/2016 5:27:00 PM Rocephin [IVPB] IVPB bolus 0, then 2 gm 100 mL/hr, administered: 11/10/2016 6:25:00 PM The following Medications were prescribed to the patient: None.
[2016-11-10 22:34] VITALS: BP 132/65
[2016-11-11] VITALS (7 sets, daily range): BP systolic 98–148; BP diastolic 37–69
[2016-11-11] MEDS ORDERED: FERROUS SULFAT324 M1 PO (00:50)
[2016-11-11] MEDS ORDERED: GABAPENTIN100 MG PO ×2 (00:55→00:56)
[2016-11-11] MEDS ORDERED: OXAYDO5 MG PO (01:00)
[2016-11-11] MEDS ORDERED: PREDNISONE20 MG PO (01:05)
[2016-11-11] MEDS ORDERED: ADVAIR DISKU1 INH (01:06)
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
--- NOTE | 2016-11-11 11:12 | DIAGNOSTIC IMAGING REPORT ---
PROCEDURE: MR LUMBAR SPINE W/O CONTRAST INDICATION: worsening lower back pain. Abnormal L5 on x ray. TECHNIQUE: Noncontrast T1, T2, and STIR sagittal images. T1 and T2 axial images. COMPARISON: Lumbar spine x-ray 11/06/2016. FINDINGS: Chronic 50% T11 and 45% L1 compression fracture. Acute 25% L2 superior endplate and acute 55% L5 compression fractures. Scattered bony hemangioma as at T10, T12, L3 and S1. Grade 1 L4-5 anterolisthesis. Mild to moderate spur formation. Multilevel disc degeneration. Normal conus. Paraspinal soft tissues are normal. L1-2: Small disc bulge. L2-3: Small disc bulge with moderate facet arthropathy. L3-4: Small disc bulge and moderate facet arthropathy with thickening of the ligament flava. Mild spinal stenosis. L4-5: Mild broad-based disc bulge with moderate facet arthropathy and thickening of the ligament flava. Mild spinal stenosis. L5-S1: Desiccation of the disc. Mild facet arthropathy. IMPRESSION: 1. Acute 25% L2 superior endplate and 55% L5 compression fractures. 2. Chronic 50% T11 and 44% L1 compression fractures 3. Moderate degenerative changes with grade 1 L4-5 anterolisthesis 4. Mild L3-4 and L4-5 spinal stenosis
[2016-11-12 02:41] VITALS: BP 140/73
[2016-11-12 07:10] VITALS: BP 151/56
[2016-11-12 10:27] VITALS: BP 107/38
[2016-11-12 14:00] VITALS: BP 124/48
[2016-11-12 18:40] VITALS: BP 108/56
[2016-11-12 22:18] VITALS: BP 146/57
[2016-11-13 02:44] VITALS: BP 112/67
[2016-11-13] MEDS ORDERED: VITAMIN D-32000 UNIT PO (02:51)
[2016-11-13 07:14] VITALS: BP 124/57
[2016-11-13] MEDS ORDERED: NICOTINE T7 MG/24 HR TOP (08:31)
[2016-11-13] MEDS ORDERED: OXAYDO5 MG PO (08:38)
[2016-11-13] MEDS ORDERED: MIACALCIN200 MG/ACT (08:48)
--- NOTE | 2016-11-13 09:00 | Provider's Discharge Care Plan ---
Problem, Goal, Plan Problem List 1. Compression fx, lumbar spine Goals: Improve disease control, Improve function, Improved health/wellness, Increase independence Instructions: Follow up as directed, Increase activity level, Take meds as directed, Use miacalcin nasal spray 1 pray in nose daily, alternate nostrilis. Take Vit D3 at 2000 U daily. Take Tums 1 tab twice daily. Use oxycodone tabs for pain 10 mg every 4-6h. 2. COPD exacerbation Goals: Improve disease control, Improve function, Improved health/wellness, Increase independence Instructions: Follow up as directed, Increase activity level, Take meds as directed, Stop smoking, Continue usual inhalers and nebulizer treatments as needed. Continue home Oxygen at 2L/min as needed. Stop prednisone for now. 3. Iron deficiency anemia due to chronic blood loss Goals: Improve disease control, Improve function, Improved health/wellness, Increase independence Instructions: Continue iron tabs twice daily and omeprazole 40mg every am. 4. Restless leg syndrome Goals: Improve disease control, Improve function, Improved health/wellness Instructions: Follow up as directed, Increase activity level, Take meds as directed, continue Mirapex and gabapentin as needed. 5. Mitral stenosis Goals: Improve disease control, Improve function, Improved health/wellness, Increase independence Instructions: Follow up as directed, Increase activity level, Take meds as directed, continu bumetanide 1 mg daily. Eat a banana daily to prevent low potassium.
--- NOTE | 2016-11-13 13:37 | DISCHARGE SUMMARY ---
ADMIT DATE: 11/11/2016 DISCHARGE DATE: 11/13/2016 ADMITTING DIAGNOSES: 1. Hypoxia secondary to chronic obstructive pulmonary disease and exacerbated by anemia, question urinary tract infection 2. Confusion secondary to low oxygen saturations DISCHARGE DIAGNOSES: 1. Exacerbation of chronic obstructive pulmonary disease with hypoxia, cause not clear 2. 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 Iron-deficiency secondary to the gastrointestinal bleeding 4. Other problems include acute compression fractures of L2 and L5, causing severe exacerbation of lower back pain 5. Chronic stable problems include mitral stenosis 6. Depression 7. Restless leg syndrome 8. Acute problem included renal insufficiency due to prerenal factors PROCEDURE: 1. None BRIEF HISTORY: Please see the dictated history, physical exam for details concerning admission. HOSPITAL COURSE: The patient is a 71-year-old female, well known to me, who developed some progressive confusion in the 2- to 3-day period prior to her admission. The cause of this is not entirely clear. When she presented to the emergency department she was somewhat hypoxic, with O2 saturation in the 80s on room air, about 88 or 89. She did show evidence of an anemia with hematocrit of around 25 and had guaiac-positive stools. She had a urine suggesting possible urinary tract infection. She was quite weak and not able to ambulate very well. She had been having problems with quite severe back pain for several weeks and had just had x-rays done of her lower back several days ago. She was admitted and started on nebulizer treatments for the COPD, supplemental oxygen, and some fluid rehydration. She did have a significantly elevated BUN and creatinine. She showed evidence of possible UTI and was started on ceftriaxone 1 g IV every 24 hours. She improved with this regimen. Due to her back pain, she had an MRI scan done. Her standard x-ray showed an abnormality of the L5 vertebral body, but it was hard to see clearly, and it was unclear whether this was due to erosions or tumor or compression fracture. She had the MRI scan done, and this showed that she had acute compression fractures of L2 and of L5. She was advised this. She has her pain stabilized with a somewhat higher dose of oxycodone p.o. She had been on corticosteroids for COPD and exacerbation of arthritis and had these tapered down and stopped at the time of discharge. She was started on Miacalcin nasal spray and was continued on calcium and vitamin D3. She was fairly ambulatory in a normal fashion by the end of her hospitalization. Her urine culture eventually came back negative. The elevated white blood cell count initially went up and then came down to normal with the ongoing IV antibiotic. It is not clear if she had some other source of infection. She did not really show evidence of pneumonia on chest x-ray. She did have a slightly elevated BNP, around 200. She was continued on bumetanide. She was continued on low-flow IV fluids and with this, her BUN and creatinine came back down into the normal range. She did not develop any edema and felt better. She is able to maintain oxygen saturations in the 92- 98 range on room air. She was able to be up and walking and had her pain controlled with oral medicines and felt to be doing well enough to be discharged on 11/13/2016. DISCHARGE INSTRUCTIONS/MEDICATIONS: Disposition: The patient is discharged home in the care of her daughter. Medications that are continued at the time of discharge will include continuation of nicotine transdermal patch 7 mg every 24 hours, 1 patch once daily. Miacalcin nasal spray, 1 spray into the nose once daily, alternating nostrils. She will also continue sertraline 150 mg p.o. daily for depression. Magnesium oxide 800 mg p.o. b.i.d. Omeprazole 40 mg p.o. daily. Vitamin D3 at 2000 units daily. Ipratropium by hand-held nebulizer at 0.5 mg every 6 hours. Mirapex 0.25 mg p.o. t.i.d. Bumetanide 1 mg p.o. daily. Lisinopril 5 mg p.o. at bedtime. Albuterol HFA inhaler 2 puffs every 4 hours as needed. Diazepam 2 mg at bedtime for sleeping and muscle spasm. She will also continue Spiriva 18 mcg capsule once daily, and will use a Symbicort inhaler 2 puffs twice daily. She will continue with iron tablets 1 twice daily, the 325 mg strength. She will continue gabapentin 100 mg morning and afternoon and 300 mg at bedtime to help with back pain and restless leg symptoms. She will continue oxycodone 10 mg strength 1 every 4-6 hours for pain control. She will follow up in my office in about 2 weeks. She is advised to stop the prednisone. She will continue home O2 at 2 liters per minute p.r.n. shortness breath. If any new problems or symptoms develop, she will call. She also will continue the Advair inhaler 250/50, one puff twice daily, if she does not have the Symbicort inhaler or if her insurance plan prefers the Advair inhaler. She will plan to follow up in my office as scheduled in about 2 weeks. If she has any problems sooner than that, she will come in sooner.
[2016-11-13] MEDS ORDERED: PRINIVIL5 MG PO (22:53)
[2016-11-17] MEDS ORDERED: CYMBALTA30 MG PO (08:14)
[2016-11-17] MEDS ORDERED: OXYCODONE IR PO (08:18)
[2016-11-17] MEDS ORDERED: BUMEX1 MG PO (08:19)
== END 2016-11-13 14:10 | disposition home or self-care (01) | DRG 190 ==
LOC: ED SRH 16:12 → TRANS SRH 18:31 → ACUTE2 SRH 21:20
PROVIDERS: ADMIT Emergency Medicine
DX: J44.1 Chronic obstructive pulmonary disease with (acute) exacerbation (principal); R09.02 Hypoxemia; K55.21 Angiodysplasia of colon with hemorrhage; S32.020A Wedge compression fracture of second lumbar vertebra, initial encounter for closed fracture; S32.050A Wedge compression fracture of fifth lumbar vertebra, initial encounter for closed fracture; D50.0 Iron deficiency anemia secondary to blood loss (chronic); E86.0 Dehydration; R39.2 Extrarenal uremia; X58.XXXA Exposure to other specified factors, initial encounter; Y99.8 Other external cause status; G25.81 Restless legs syndrome; F32.9 Major depressive disorder, single episode, unspecified; I11.0 Hypertensive heart disease with heart failure; I50.9 Heart failure, unspecified; I05.0 Rheumatic mitral stenosis; E03.9 Hypothyroidism, unspecified; R41.0 Disorientation, unspecified
CPT/HCPCS: 29230; 29247; 85241; 90001; 90004; 90047; 90074; 90100; 90155; 90469; 90616; 91004; 91585; 91588; 92031; 92610; 92668; 92670; 92720; 93020; 93140; 95059

== ENCOUNTER 2016-11-16 16:06 | Observation (INO) | payer OTHER ==
[~2016-11-16] VITALS: Ht 162.6 cm; Wt 59.8 kg
[~2016-11-16 16:06] MED LIST changes: +ADVAIR DISKU1 INH; +GABAPENTIN100 MG PO; +MIACALCIN200 MG/ACT; +NICOTINE T7 MG/24 HR TOP; +PREDNISONE20 MG PO; +PRINIVIL5 MG PO; +VITAMIN D-32000 UNIT PO
--- NOTE | 2016-11-16 17:42 | ED NURSING NOTES ---
Clinical Report - Nurses [facility] [address] [place] [address] 11/16/2016 16:05 Patient: ROYCE HOLLEY TRIAGE Triage time 16:00 Nov 16 2016. Acuity: LEVEL 3. Chief Complaint: (Increased Confusion, r/o UTI). Alert. AMELIA COMA SCORE: [place] Coma Scale: 15- eyes open spontaneously (4); best verbal response- oriented x 4 (5); best motor response- obeys commands (6). --16:32 Javy Monahan R.N. 16:10 11/16/16. BP: 148/44. HR: 83. RR: 1. O2 saturation: 99% on room air. Temp: 98.6 F (rectal). Pain level now: 0/10. --16:32 Jayv Monahan R.N. Weight: 63.5 kg estimated. Height/Length: 64 inches Estimated. BMI: 24. --16:30 Javy Monahan R.N. Medications OxyCODONE HCl Oral 10 mg, 4x a day. --16:15 Javy Monahan R.N. Ferrous Sulfate Oral 325 mg, 2x a day. --16:15 Javy Monahan R.N. Lisinopril Oral 5 mg, daily. --16:16 Javy Monahan R.N. Spiriva HandiHaler Inhalation (Capsule 18 mcg) 1 capsule, daily. --16:19 Javy Monahan R.N. Acetaminophen Oral 325 mg, 2x a day as needed. Acetaminophen Oral 325 mg, 2x a day. Acetaminophen Oral 325 mg, 2x a day. Albuterol Sulfate Oral, Q3-4H. Aspirin Oral (Tablet Chewable 81 mg). Bumetanide Oral 1 mg, 1 1/2 Q daily. BusPIRone HCl Oral (Tablet 7.5 mg) 1 tablet, BID. Carvedilol Oral (Tablet 3.125 mg) 1 tablet, Q12H. Combivent Respimat Inhalation (Aerosol Solution 20-100 mcg/act) QID. Diazepam Oral 2 mg, at bedtime. Digoxin Oral (Tablet 125 mcg) 1 tablet, daily. Furosemide Oral 40 mg, daily. Levothyroxine Sodium Oral (Tablet 50 mcg) 1 tablet, daily. Magnesium Oxide Oral (Tablet 400 mg) 1 tablet, BID. Metolazone Oral 2.5 mg, Q mornings: mon, mon, mond. Omeprazole Oral 40 mg, daily. OxyCODONE HCl Oral 5 mg, noon, 4pm and 2 tabs at bedtime. Potassium Chloride ER Oral (Capsule Extended Release 10 meq) 1 capsule, on mon, mon, monday. pramipexole 0.5mg x1 tab three times daily. Pravastatin Sodium Oral 20 mg, at bedtime. ProAir HFA Inhalation. Spironolactone Oral 25 mg. Symbicort Inhalation. Torsemide Oral 20 mg x2 tabs daily. Vitamin D. --16:21 Javy Monahan R.N. (old chart). --16:32 Javy Monahan R.N. Allergies Ibuprofen. --16:21 Javy Monahan R.N. History Arrived by EMS. Historian: EMS. Unaccompanied. Primary physician ([facility]). ( Increased Confusion, r/0 UTI). ( r/o UTI, increased confusion). 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 PAST MEDICAL HX: Immunizations: up-to-date. SOCIAL HX: Former smoker. No alcohol use or drug use. No infectious disease exposure. ABUSE ASSESSMENT: No report of abuse. FALL RISK ASSESSMENT: Fall risk assessment completed. No fall risk identified. NUTRITIONAL RISK ASSESSMENT: The nutritional risk assessment revealed no deficiencies. FUNCTIONAL ASSESSMENT: Functional assessment: no impairments noted. LEARNING NEEDS ASSESSMENT: The learning needs assessment revealed no barriers. SKIN INTEGRITY ASSESSMENT: Skin integrity risk assessment completed. No skin integrity risk identified. --16:32 Javy Monahan R.N. PROBLEMS: Hepatitis [Active]. Anemia [Active]. Back Pain [Active]. Hypertension [Active]. --16:27 Javy Monahan R.N. Changed Mental Status. Back Pain. GI Bleeding. Pneumonia. COPD - Chronic Obstructive Pulmonary Disease. Hypoxia. Asthma. Hypothyroidism. Abnormal Test. Lifestyle / Substance Problems. Headaches. Ovarian Cancer. Depression. Hypercholesterolemia. Restless Legs Syndrome. Congestive Heart Failure. Syncope. Dehydration. Substance Abuse. Hyperlipidemia. Cancer. Osteoporosis. Valvular Heart Disease. UTI - Urinary Tract Infection. Anemia. Hyponatremia. Hypertension. Anxiety Reaction. Peptic Ulcer Disease. Myocardial Infarction. Coronary Artery Disease. Lumbar Strain. Immunizations. Fall. Bronchitis. --16:27 Javy Monahan R.N. ADDITIONAL SURGERIES: Hysterectomy. Liver Lac repair. Shoulder Surgery. --16:27 Javy Monahan R.N. Interventions ID and allergy band on patient. To treatment room. --16:32 Javy Monahan R.N. PHYSICAL ASSESSMENT To room via stretcher. GENERAL / NEURO / PSYCH: Alert. Oriented X 4. HEENT: Mucous membranes are pink. RESPIRATORY: Respirations not labored. CVS: Normal heart rate and rhythm. GI / : Abdomen soft. Bowel sounds within normal limits. SKIN: Skin is warm and dry. --16:32 Javy Monahan R.N. NURSING PROGRESS NOTES Patient gowned. Reassurance given. Patient identifiers checked. Call light placed in reach. Side rails up. Bed placed in lowest position. Brakes of bed on. Patient ready for evaluation- chart flagged and ED physician notified. --16:33 Javy Monahan R.N. 16:20 11/16/16. Patient ID band checked for patient name, birthdate and medical record number: patient confirmed. Catheterized urine collected with return of yellow-colored clear urine; odor is normal; sample sent to lab for urinalysis and culture. Specimen labeled in the presence of the patient. --16:33 Javy Monahan R.N. 16:22 11/16/2016 Site #1 started via IV in the left antecubital space with an 20g angiocath, with aseptic technique and good blood return; one attempt. Blood drawn: pediatric tubes. Labeled in the presence of the patient and sent to the lab. Saline lock flushed with 10 mL saline. --16:38 Idalia Joseph R.N. 16:51 11/16/2016 Started bag #1 1000 mL IV Fluids IV NS (Saline); bolus of 500 mL over 30 minute(s) then at 250 mL/hr over 2 hour(s) via site #1 via IV pump. Allergies verified and confirmed 5 rights. IV patency established. IV site checked: no pain, redness, or swelling. IV flushed thoroughly pre- and post-medication administration. --16:56 Javy Monahan R.N. 17:20. ( pt attempting to get out of bed . assisted pt to BSC, pt voided 400cc alvin urine, UA sent to lab . Pt told not to get out of bed unassisted). --17:33 Idalia Joseph R.N. 17:21 11/16/2016 IV Fluids IV NS via IV site #1 Rate Changed: bag #1 decreased to 250 mL/hr via IV pump. --17:36 Idalia Joseph R.N. 18:57 11/16/16. BP: 161/55. HR: 82. RR: 16. O2 saturation: 100% on room air. --18:57 Javy Monahan R.N. 19:20 11/16/2016 Site #[address] upon admission; patent, no pain and no signs of infiltration. Good blood return present. Converted to saline lock (IV infusing in this site). --23:52 Javy Monahan R.N. 19:20 11/16/2016 IV Fluids IV NS Continued: upon admission at the rate of 250 mL/hr. 100 mL remaining bag #1. IV patency established. IV site checked: no pain, redness, or swelling. IV flushed thoroughly. --23:51 Javy Monahan R.N. DISPOSITION / DISCHARGE Departure time: 1919. --19:31 Javy Monahan R.N. 19:15 11/16/16. BP: 161/55. HR: 82. RR: 16. O2 saturation: 97% on room air. Temp: 98.7 F. Pain level now: 0/10. --23:48 Javy Monahan R.N. 19:20. Admitted. Transported via stretcher by transport team with IV. Report was given to a nurse via a phone call. Report included patient's care, treatment, medications, reviewed medication reconcilliation, and condition (including any recent changes or anticipated changes). All questions were answered. Report was acknowledged and care was transferred. Patient's personal items; items were placed in belongings bag and transported with the patient. --23:49 Javy Monahan R.N. Locked/Released at 11/16/2016 23:53 by Javy Monahan R.N.
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
--- NOTE | 2016-11-16 17:42 | ED ORDER SUMMARY ---
..... Patient: ROYCE HOLLEY OrderSheet [facility] VisitID: [id number] [address] [place] [address] 71y, F Registration Date/Time: 11/16/2016 ORDER SHEET Weight: 63.5 kg (estimated) Allergies: Ibuprofen GENERAL ORDERS: UA-Culture if indicated Urgent (16:09 11/16/2016 JRomanelli R.N. verbal order read back to [facility]) (Ack 16:10 LNations ER Tech1) (16:39 JRomanelli R.N.) Cardiac Panel Stat (16:10 11/16/2016 [facility]) (Ack 16:16 LNations ER Tech1) (16:54 JRomanelli R.N.) TSH Urgent (16:10 11/16/2016 [facility]) (Ack 16:16 LNations ER Tech1) (16:54 JRomanelli R.N.) Ammonia Level Urgent (16:10 11/16/2016 [facility]) (Ack 16:16 LNations ER Tech1) (16:54 JRomanelli R.N.) BNP Urgent (16:10 11/16/2016 [facility]) (Ack 16:16 LNations ER Tech1) (16:54 JRomanelli R.N.) Rectal Temperature (16:10 11/16/2016 [facility]) (Ack 16:16 LNations ER Tech1) (16:34 JRomanelli R.N.) Call (Place call to): (Roma) (17:22 11/16/2016 [facility]) (Ack 17:30 PWeiler ER Tech1) (17:50 PWeiler ER Tech1) MEDICATION ORDERS: IV FLUIDS: IV NS : initial bolus 500 mL (1000 mL/hr), then 250 mL/hr for X2 (NOW) (16:10 11/16/2016 [facility]) (16:56 JRomanelli R.N.) ORDER SHEET NOTES: [Electronically signed by Domingo Robbins DO (20:24 11/16/2016)] [Electronically signed by Javy Monahan R.N. (23:53 11/16/2016)] [Electronically locked/signed by Javy Monahan R.N. (23:53 11/16/2016)]
--- NOTE | 2016-11-16 17:42 | ED ORDER SUMMARY ---
..... Patient: ROYCE HOLLEY OrderSheet [facility] VisitID: [id number] [address] [place] [address] 71y, F Registration Date/Time: 11/16/2016 ORDER SHEET Weight: 63.5 kg (estimated) Allergies: Ibuprofen GENERAL ORDERS: UA-Culture if indicated Urgent (16:09 11/16/2016 JRomanelli R.N. verbal order read back to [facility]) (Ack 16:10 LNations ER Tech1) (16:39 JRomanelli R.N.) Cardiac Panel Stat (16:10 11/16/2016 [facility]) (Ack 16:16 LNations ER Tech1) (16:54 JRomanelli R.N.) TSH Urgent (16:10 11/16/2016 [facility]) (Ack 16:16 LNations ER Tech1) (16:54 JRomanelli R.N.) Ammonia Level Urgent (16:10 11/16/2016 [facility]) (Ack 16:16 LNations ER Tech1) (16:54 JRomanelli R.N.) BNP Urgent (16:10 11/16/2016 [facility]) (Ack 16:16 LNations ER Tech1) (16:54 JRomanelli R.N.) Rectal Temperature (16:10 11/16/2016 [facility]) (Ack 16:16 LNations ER Tech1) (16:34 JRomanelli R.N.) Call (Place call to): (Roma) (17:22 11/16/2016 [facility]) (Ack 17:30 PWeiler ER Tech1) (17:50 PWeiler ER Tech1) MEDICATION ORDERS: IV FLUIDS: IV NS : initial bolus 500 mL (1000 mL/hr), then 250 mL/hr for X2 (NOW) (16:10 11/16/2016 [facility]) (16:56 JRomanelli R.N.) ORDER SHEET NOTES: [Electronically signed by Domingo Robbins DO (20:24 11/16/2016)] [Electronically signed by Javy Monahan R.N. (23:53 11/16/2016)] [Electronically locked/signed by Javy Monahan R.N. (23:53 11/16/2016)]
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
[2016-11-16 19:39] VITALS: BP 175/82
[2016-11-16 22:12] VITALS: BP 143/43; BP 148/40
--- NOTE | 2016-11-16 23:53 | ED MAR SUMMARY ---
..... Medication Administration Record [facility] [address] [place] [address] Patient: ROYCE HOLLEY Visit ID: [id number] 71y, F Weight: 63.5 kg Height/Length: 64 in BMI: 24 ALLERGIES: Ibuprofen Start 16:51 11/16/2016 Javy Monahan, RBrittonN., Continued Upon Admission 19:20 11/16/2016 Javy Monahan, R.N. Medication Administered: IV NS (SALINE), Dose: IV Fluids over 2 hour(s), Rate: 250 mL/hr, Bolus: 500 mL over 30 minute(s), Dispensed: 1000 mL bag, Site: #1 left . Medication Ordered: IV NS : initial bolus 500 mL (1000 mL/hr), then 250 mL/hr for X2 (NOW).
--- NOTE | 2016-11-16 23:53 | ED MED RECONCILIATION SUMMARY ---
Patient: ROYCE HOLLEY Medication Reconciliation Report [facility] VisitID: [id number] [address] [place] [address] 71y, F Registration Date/Time: 11/16/2016 Weight: 63.5 kg Height/Length: 64 in. BMI: 24.0 ALLERGIES: Ibuprofen The patient's Home Medications are listed below: THE FOLLOWING MEDICATIONS NEED TO BE RECONCILED: Acetaminophen Oral 325 mg, 2x a day Acetaminophen Oral 325 mg, 2x a day Acetaminophen Oral 325 mg, 2x a day Albuterol Sulfate Oral, Q3-4H Aspirin Oral (81 mg) Bumetanide Oral 1 mg, 1 1/2 Q daily BusPIRone HCl Oral (7.5 mg) 1 tablet, BID Carvedilol Oral (3.125 mg) 1 tablet, Q12H Combivent Respimat Inhalation (20-100 mcg/act) QID Diazepam Oral 2 mg, at bedtime Digoxin Oral (125 mcg) 1 tablet, daily Ferrous Sulfate Oral 325 mg, 2x a day Furosemide Oral 40 mg, daily Levothyroxine Sodium Oral (50 mcg) 1 tablet, daily Lisinopril Oral 5 mg, daily Magnesium Oxide Oral (400 mg) 1 tablet, BID Metolazone Oral 2.5 mg, Q mornings: mon, mon, Omeprazole Oral 40 mg, daily OxyCODONE HCl Oral 5 mg, noon, 4pm and 2 tabs at bedtime OxyCODONE HCl Oral 10 mg, 4x a day Potassium Chloride ER Oral (10 meq) 1 capsule, on mon, mon, monday pramipexole 0.5mg x1 tab three times daily Pravastatin Sodium Oral 20 mg, at bedtime ProAir HFA Inhalation Spiriva HandiHaler Inhalation (18 mcg) 1 capsule, daily Spironolactone Oral 25 mg Symbicort Inhalation Torsemide Oral 20 mg x2 tabs daily Vitamin D The source(s) of the original Home Medication information: old chart The following Medications were given to the patient in the Emergency Department: IV NS IV Fluids bolus 500 mL over 30 minute(s), then 250 mL/hr, administered: 11/16/2016 4:51:00 PM The following Medications were prescribed to the patient: None.
--- NOTE | 2016-11-16 23:53 | ED MED RECONCILIATION SUMMARY ---
Patient: ROYCE HOLLEY Medication Reconciliation Report [facility] VisitID: [id number] [address] [place] [address] 71y, F Registration Date/Time: 11/16/2016 Weight: 63.5 kg Height/Length: 64 in. BMI: 24.0 ALLERGIES: Ibuprofen The patient's Home Medications are listed below: THE FOLLOWING MEDICATIONS NEED TO BE RECONCILED: Acetaminophen Oral 325 mg, 2x a day Acetaminophen Oral 325 mg, 2x a day Acetaminophen Oral 325 mg, 2x a day Albuterol Sulfate Oral, Q3-4H Aspirin Oral (81 mg) Bumetanide Oral 1 mg, 1 1/2 Q daily BusPIRone HCl Oral (7.5 mg) 1 tablet, BID Carvedilol Oral (3.125 mg) 1 tablet, Q12H Combivent Respimat Inhalation (20-100 mcg/act) QID Diazepam Oral 2 mg, at bedtime Digoxin Oral (125 mcg) 1 tablet, daily Ferrous Sulfate Oral 325 mg, 2x a day Furosemide Oral 40 mg, daily Levothyroxine Sodium Oral (50 mcg) 1 tablet, daily Lisinopril Oral 5 mg, daily Magnesium Oxide Oral (400 mg) 1 tablet, BID Metolazone Oral 2.5 mg, Q mornings: mon, mon, Omeprazole Oral 40 mg, daily OxyCODONE HCl Oral 5 mg, noon, 4pm and 2 tabs at bedtime OxyCODONE HCl Oral 10 mg, 4x a day Potassium Chloride ER Oral (10 meq) 1 capsule, on mon, mon, monday pramipexole 0.5mg x1 tab three times daily Pravastatin Sodium Oral 20 mg, at bedtime ProAir HFA Inhalation Spiriva HandiHaler Inhalation (18 mcg) 1 capsule, daily Spironolactone Oral 25 mg Symbicort Inhalation Torsemide Oral 20 mg x2 tabs daily Vitamin D The source(s) of the original Home Medication information: old chart The following Medications were given to the patient in the Emergency Department: IV NS IV Fluids bolus 500 mL over 30 minute(s), then 250 mL/hr, administered: 11/16/2016 4:51:00 PM The following Medications were prescribed to the patient: None.
--- NOTE | 2016-11-16 23:53 | ED DISCHARGE INSTRUCTIONS ---
Patient: ROYCE HOLLEY General Instructions [facility] VisitID: [id number] [place] [address] 71y, F Registration Date/Time: 11/16/2016 Acute mental status change with confusion. Moderate dehydration Essential hypertension. Moderate chronic anemia. INSTRUCTIONS Follow-up: Screening today revealed the patient's blood pressure to be in the hypertensive range. The patient should follow up with a primary care provider for blood pressure management. ADDITIONAL INFORMATION High Blood Pressure --Established High Blood Pressure (Hypertension) is a chronic disease. The cause is unknown in most cases. It can usually be controlled with lifestyle changes and/or medicines. Symptoms of high blood pressure may include headache, dizziness, visual changes, chest pain and shortness of breath. Sometimes it causes no symptoms at all. However, even if there are no symptoms, untreated high blood pressure increases the risk of heart attack, also known as acute myocardial infarction, or AMI, and stroke. It is a serious health risk and should not be ignored. A normal blood pressure is 120/80 or less. The first (top) number is the "systolic" pressure. The second (bottom) number is the "diastolic" pressure. Hypertension exists when either the top number is 140 or higher, OR the bottom number is 90 or higher on repeated measurements. Home Care: All patients with high blood pressure should do the following to lower their pressure. If you are on medicines, then these methods may reduce or eliminate your need for medicines in the future. Begin a weight loss program if you are overweight. Reduce your salt intake. Avoid high salt foods (olives, pickles, smoked meats, salted potato chips, etc.). Do not add salt to your food at the table. Use only small amounts of salt when cooking. Begin an exercise program. Discuss with your doctor what type of exercise program would be best for you. It doesn't have to be difficult. Even brisk walking for 20 minutes three times a week is a good form of exercise. Avoid medicines which contain heart stimulants. This includes many cold and sinus decongestant pills and sprays as well as diet pills. Check the warnings about hypertension on the label. Stimulants such as amphetamine or cocaine could be lethal for someone with hypertension. Never take these. Limit your caffeine intake or switch to caffeine-free products. Stop smoking. If you are a long-time smoker, this can be hard. Enroll in a stop-smoking program to improve your chance of success. Learning how to handle stress better is an important part of any program to lower blood pressure. Learn about relaxation methods such as meditation, yoga or biofeedback. If medicines were prescribed, take them exactly as directed. Missing doses may cause your blood pressure get out of control. Consider buying an automatic blood pressure machine (available at most pharmacies). Use this to monitor your blood pressure at home and report the results to your doctor. Follow Up: Regular visits to your own physician for blood pressure checks and medicine adjustment is an important part of your care. Make a follow-up appointment as directed by our staff. Get Prompt Medical Attention if any of the following occur: Chest pain or shortness of breath Severe headache Throbbing or rushing sound in the ears Nosebleed Sudden severe abdominal pain Extreme drowsiness, confusion or fainting Dizziness or vertigo (dizziness with spinning sensation) Weakness of an arm or leg or one side of the face Difficulty with speech or vision Dehydration (Adult) Dehydration occurs when your body loses too much fluid. This may be the result of vomiting a lot or from diarrhea,sweating a lot, or a high fever. It may also happen if you dont drink enough fluid when youre sick. Misuse of diuretics (water pills) can also be a cause. Symptoms include thirst and feeling dizzy, weak, fatigued, or very drowsy. The diet described below is usually enough to treat most cases. Sometimes you may needmedicine. Home Care Follow these guidelines for home care: Drink at least 12 8-ounce glasses of fluid every day to overcome the dehydration. Fluid may include water; orange juice; lemonade; apple, grape, and cranberry juice; clear fruit drinks; electrolyte replacement and sports drinks; and teas and coffee without caffeine. If you have been diagnosed with a kidney disease, ask your doctor how much and what types of fluids you should drink to prevent dehydration. If you have kidney disease, drinking too much fluid can cause it build up in the your body and be dangerous to your health. If you have fever, muscle aching, or headache from a viral syndrome, you may useacetaminophen or ibuprofen, unless another medicine was prescribed for this.If you have chronic liver or kidney disease or ever had a stomach ulcer or GI bleeding, talk with your doctor before using these medicines. Don't take aspirin if you are younger than 18 and are ill with a fever.Aspirin raises the chance forsevere liver injury. Follow-up care Follow up with your health care provider if you don't get better in the next 24 to 48 hours. When to seek medical care Get prompt medical attention if any of theseoccur: Continued vomiting (cant keep liquids down) Frequent diarrhea (more than 5 times a day); blood (red or black color) or mucus in diarrhea Blood in vomit or stool Swollen abdomen or increasing abdominal pain Weakness, dizziness, or fainting Unusually drowsy or confused Reduced urine output or extreme thirst Fever of 100.4 F (38 C) oral or higher that does not get better with fever medication You have been given the following additional information: Hypertension, Established Dehydration (Adult) (Electronically signed by Domingo Robbins DO 11/16/2016 20:24)
--- NOTE | 2016-11-16 23:53 | ED MAR SUMMARY ---
..... Medication Administration Record [facility] [address] [place] [address] Patient: ROYCE HOLLEY Visit ID: [id number] 71y, F Weight: 63.5 kg Height/Length: 64 in BMI: 24 ALLERGIES: Ibuprofen Start 16:51 11/16/2016 Javy Monahan, RBrittonN., Continued Upon Admission 19:20 11/16/2016 Javy Monahan, R.N. Medication Administered: IV NS (SALINE), Dose: IV Fluids over 2 hour(s), Rate: 250 mL/hr, Bolus: 500 mL over 30 minute(s), Dispensed: 1000 mL bag, Site: #1 left . Medication Ordered: IV NS : initial bolus 500 mL (1000 mL/hr), then 250 mL/hr for X2 (NOW).
[2016-11-17 02:08] VITALS: BP 132/49
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
[2016-11-17 06:31] VITALS: BP 111/45
[2016-11-17] MEDS ORDERED: CYMBALTA30 MG PO ×2 (08:14)
[2016-11-17] MEDS ORDERED: OXYCODONE IR PO ×2 (08:18)
[2016-11-17] MEDS ORDERED: BUMEX1 MG PO ×2 (08:19)
--- NOTE | 2016-11-17 08:34 | Provider's Discharge Care Plan ---
Problem, Goal, Plan Problem List 1. Acute confusion Goals: Improve disease control, Improve function, Improved health/wellness Instructions: Follow up as directed, Increase activity level, Take meds as directed, REDUCE DOSE OF OXYCODONE.Use pill dispenser. Daughter to carefully manage pain meds. 2. Congestive heart failure Goals: Improve disease control, Improve function, Improved health/wellness Instructions: Follow up as directed, Increase activity level, Take meds as directed, Continue lisinopril at 5 mg am and bedtime and reduce dose of bumetanide to 0.5 mg (1/2 tab of 1 mg). Give midday. 3. Iron deficiency anemia due to chronic blood loss Goals: Improve disease control, Improve function, Improved health/wellness Instructions: Follow up as directed, Increase activity level, Take meds as directed, Continue opmeprazole and continue iron tabs 1 twice daily 4. Compression fx, lumbar spine Goals: Improve disease control, Improve function, Improved health/wellness Instructions: Follow up as directed, Increase activity level, Take meds as directed, Stop smoking, Continhue TUMS, Vit D3 and calcitonin nasal spray 1 spray into nose daily--alternate nostrils. 5. Depression Goals: Improve disease control, Improve function, Improved health/wellness Instructions: Follow up as directed, Increase activity level, Take meds as directed, try changing to Duloxetine 30 mg cap [address] Use in place of sertraline. 6. Restless leg syndrome Goals: Improve disease control, Improve function, Improved health/wellness Instructions: Follow up as directed, Increase activity level, Take meds as directed, continue mirapex and gabapentin 7. COPD exacerbation Goals: Improve disease control, Improve function, Improved health/wellness Instructions: Follow up as directed, Increase activity level, Take meds as directed, Continue nebulized meds and inhalers. Use nicotine patch to stop smoking. Use supplemental O2 at night if needed
[2016-11-17 09:51] VITALS: BP 153/49
== END 2016-11-17 12:00 | disposition home or self-care (01) ==
LOC: ED SRH 16:06 → ACUTE2 SRH 18:07 → TRANS SRH 18:07 → ACUTE2 SRH 19:45
PROVIDERS: ADMIT Family Medicine
DX: E86.0 Dehydration (principal); R41.0 Disorientation, unspecified; Z79.891 Long term (current) use of opiate analgesic; N28.9 Disorder of kidney and ureter, unspecified; M54.16 Radiculopathy, lumbar region; M54.6 Pain in thoracic spine; G25.81 Restless legs syndrome; J44.9 Chronic obstructive pulmonary disease, unspecified; I50.9 Heart failure, unspecified; I34.2 Nonrheumatic mitral (valve) stenosis; E03.9 Hypothyroidism, unspecified; D50.0 Iron deficiency anemia secondary to blood loss (chronic); K55.21 Angiodysplasia of colon with hemorrhage; Z79.899 Other long term (current) drug therapy; Z72.0 Tobacco use
CPT/HCPCS: 29230; 81460; 85241; 90004; 90047; 90074; 90100; 90616; 91320; 91588; 92610; 92720; 93140; 95059

== ENCOUNTER 2016-12-14 21:42 | Emergency (ER) | payer OTHER ==
[~2016-12-14 21:42] MED LIST changes: +CYMBALTA30 MG PO; +OXYCODONE IR PO
--- NOTE | 2016-12-14 23:44 | DIAGNOSTIC IMAGING REPORT ---
PROCEDURE: XR LUMBAR SPINE 2 OR 3 VIEWS INDICATION: TRAUMA/INJURY TECHNIQUE: Three views. COMPARISON: Lumbar spine x-ray 11/06/2016. FINDINGS: Osteopenia. Progression of 50% L1, 40% L2 and 60% L5 compression fractures. Stable 50% T11 and 25% L3 compression fractures. Stable grade 1 L4-5 anterolisthesis. Degenerative changes of the lower facets. Mild L4-5 and L5-S1 disc space narrowing. Severe calcific atherosclerosis of the abdominal aorta. IMPRESSION: 1. Severe osteopenia 2. Progression of L-1, L-2 and L5 compression fractures 3. Stable chronic T11 and L3 compression fractures.
--- NOTE | 2016-12-14 23:56 | ED ORDER SUMMARY ---
..... Patient: ROYCE HOLLEY OrderSheet [facility] VisitID: [id number] [place] [address] 71y, F Registration Date/Time: 12/14/2016 ORDER SHEET Weight: 67.1 kg (stated) Allergies: Ibuprofen GENERAL ORDERS: Lumbar Spine 2 or 3V Urgent (22:35 12/14/2016 Angel Olivier) (Ack 22:37 Da) (22:50 DDean R.N.) MEDICATION ORDERS: Albuterol Neb Tx 2.5 mg (NOW) (22:16 12/14/2016 Angel Olivier) (Ack 22:40 DDean R.N.) (23:24 DDean R.N.) Morphine IM 4 mg (HIGH ALERT MEDICATION, NOW) (22:16 12/14/2016 Angel Olivier) (Ack 22:40 DDean R.N.) (22:49 DDean R.N.) Zofran ODT PO 4 mg (NOW) (22:49 12/14/2016 DDean R.N. per protocol) (22:50 DDean R.N.) IV FLUIDS: ORDER SHEET NOTES: [Electronically signed by Kelle Ford R.N. (:12/15/2016)] [Electronically signed by Cal Pinto Dr. (20:44 12/15/2016)] [Electronically locked/signed by Kelle Ford R.N. (12/15/2016)]
--- NOTE | 2016-12-14 23:56 | ED ORDER SUMMARY ---
..... Patient: ROYCE HOLLEY OrderSheet [facility] VisitID: [id number] [place] [address] 71y, F Registration Date/Time: 12/14/2016 ORDER SHEET Weight: 67.1 kg (stated) Allergies: Ibuprofen GENERAL ORDERS: Lumbar Spine 2 or 3V Urgent (22:35 12/14/2016 Angel Olivier) (Ack 22:37 Da) (22:50 DDean R.N.) MEDICATION ORDERS: Albuterol Neb Tx 2.5 mg (NOW) (22:16 12/14/2016 Angel Olivier) (Ack 22:40 DDean R.N.) (23:24 DDean R.N.) Morphine IM 4 mg (HIGH ALERT MEDICATION, NOW) (22:16 12/14/2016 Angel Olivier) (Ack 22:40 DDean R.N.) (22:49 DDean R.N.) Zofran ODT PO 4 mg (NOW) (22:49 12/14/2016 DDean R.N. per protocol) (22:50 DDean R.N.) IV FLUIDS: ORDER SHEET NOTES: [Electronically signed by Kelle Ford R.N. (:12/15/2016)] [Electronically signed by Cal Pinto Dr. (20:44 12/15/2016)] [Electronically locked/signed by Kelle Ford R.N. (12/15/2016)]
--- NOTE | 2016-12-14 23:56 | ED CLINICAL REPORT ---
Clinical Report - Physicians/[facility] [address] [place] [address] 12/14/2016 21:44 Patient: ROYCE HOLLEY Time Seen: 21:56; initial patient contact. Arrived- By private vehicle. Historian- patient. HISTORY OF PRESENT ILLNESS Chief Complaint: BACK PAIN. Modifying factors- worsened by bending over and lifting. Relieved by taking prescription medications. (Ran out of Oxycodone 2 days ago). It is described as being moderate in degree and radiating to the right lower extremity. The quality is noted to be aching and similar to prior episodes. Onset- about 3 weeks ago and it is still present (worse since 1 week ago). It was gradual in onset and has been waxing/waning. No bladder dysfunction, bowel dysfunction, sensory loss or motor loss. Patient notes an injury but denies injury to the head or chest. Mechanism of injury- she was lifting. Occurred at home. Similar symptoms previously: None. Recent medical care: ( MRI 11/11/16 LS spine: 1. Acute 25% L2 superior endplate and 55% L5 compression fractures. 2. Chronic 50% T11 and 44% L1 compression fractures 3. Moderate degenerative changes with grade 1 L4-5 anterolisthesis 4. Mild L3-4 and L4-5 spinal stenosis). Not recently seen/assessed. REVIEW OF SYSTEMS No fever, chills, abdominal pain, vomiting or diarrhea. She has had nausea. All systems otherwise negative, except as recorded above. PAST HISTORY Hepatitis [Active]. Anemia [Active]. Back Pain [Active]. Hypertension [Active]. --22:06 Idalia Joseph R.N. GI Bleeding. Pneumonia. COPD - Chronic Obstructive Pulmonary Disease. Hypoxia. Asthma. Hypothyroidism. Lifestyle / Substance Problems. Headaches. Ovarian Cancer. Depression. Hypercholesterolemia. Restless Legs Syndrome. Congestive Heart Failure. Syncope. Dehydration. Hyperlipidemia. Cancer. Osteoporosis. Valvular Heart Disease. UTI - Urinary Tract Infection. Hyponatremia. Hypertension. Anxiety Reaction. Peptic Ulcer Disease. Myocardial Infarction. Coronary Artery Disease. Bronchitis. SURGERIES: Hysterectomy. Liver Lac repair. Shoulder Surgery. SOCIAL HISTORY Former smoker. No alcohol use or drug use. ADDITIONAL NOTES The nursing notes have been reviewed. PHYSICAL EXAM Vital Signs: 12/14/2016 21:50 BP: 119/40. HR: 82. RR: 18. O2 saturation: 96%. Temp: 98.3 F. Pain level now: 02/12. Have been reviewed. Hypotensive. Heart rate normal. Respiratory rate normal. Temperature normal. Oxygen saturation normal. Appearance: Alert. No acute distress. ENT: Pharynx normal. CVS: Normal heart rate and rhythm. Heart sounds normal. Respiratory: No respiratory distress. Breath sounds normal. Neuro: Oriented X 3. Mood/affect normal. No motor deficit. No sensory deficit. Straight leg raising: positive on the right at 45 degrees and negative on the left. Reflexes normal. LABS, X-RAYS, AND EKG LS-Spine X-rays: (1. Severe osteopenia 2. Progression of L-1, L-2 and L5 compression fractures 3. Stable chronic T11 and L3 compression fractures.). Technique: good. The X-rays were independently viewed by me, interpreted by the radiologist and discussed with the radiologist. PROGRESS AND PROCEDURES Course of Care: Morphine 4 mg IM given. Pt's daughter states she was fine until 2 days ago when she ranout of her Oxycodone. She has been receiving 90/month. Physical exam findings are improved. Symptoms better. Disposition: Discharged home in good and improved condition. Condition: good. CLINICAL IMPRESSION Nontraumatic lumbar back pain associated with a compression fracture of L1, L2 and L5. INSTRUCTIONS No lifting greater than 5 lbs until released. Your Current Medications: CONTINUE TAKING THE FOLLOWING MEDICATIONS: Acetaminophen Oral : 325 mg 2x a day, prn. Albuterol Sulfate Oral : Q3-4H. Aspirin Oral : Tablet Chewable 81 mg. Bumetanide Oral : 1 mg 1 1/2 Q daily. BusPIRone HCl Oral : Tablet 7.5 mg, 1 tablet BID. Carvedilol Oral : Tablet 3.125 mg, 1 tablet Q12H. Combivent Respimat Inhalation : Aerosol Solution 20-100 mcg/act, QID. Diazepam Oral : 2 mg at bedtime. Digoxin Oral : Tablet 125 mcg, 1 tablet daily. Ferrous Sulfate Oral : 325 mg 2x a day. Furosemide Oral : 40 mg daily. Levothyroxine Sodium Oral : Tablet 50 mcg, 1 tablet daily. Lisinopril Oral : 5 mg daily. Magnesium Oxide Oral : Tablet 400 mg, 1 tablet BID. Metolazone Oral : 2.5 mg Q mornings: mon, mon, . Omeprazole Oral : 40 mg daily. OxyCODONE HCl Oral : 5 mg noon, 4pm and 2 tabs at bedtime. Oxygen at 3L NC at home*. Potassium Chloride ER Oral : Capsule Extended Release 10 meq, 1 capsule on mon, mon, monday. pramipexole 0.5mg x1 tab three times daily*. Pravastatin Sodium Oral : 20 mg at bedtime. ProAir HFA Inhalation. Spiriva HandiHaler Inhalation : Capsule 18 mcg, 1 capsule daily. Spironolactone Oral : 25 mg. Symbicort Inhalation. Torsemide Oral : 20 mg x2 tabs daily. Vitamin D*. Prescription Medications: OxyIR 5 mg capsules: take 1 orally every 6 hours as needed for pain. Dispense fifteen (15). No refill. Follow-up: Follow up with your doctor tomorrow. Call for an appointment. Blood pressure screening was not performed during this visit because the patient has an active diagnosis of hypertension. (Electronically signed by Cal Pinto Dr. 12/15/2016 20:44)
--- NOTE | 2016-12-14 23:56 | ED NURSING NOTES ---
Clinical Report - Nurses [facility] [address] [place] [address] 12/14/2016 21:44 Patient: ROYCE HOLLEY TRIAGE Triage time 2150. Acuity: LEVEL 3. Chief Complaint: BACK PAIN and (pt has chronic back pain, but moved somethings about 3 weeks ago and has been having problems since then. much worse over last week, with pain shooting down right leg). 21:50. --22:08 Idalia Joseph R.N. 21:50 12/14/16. BP: 119/40. HR: 82. RR: 18. O2 saturation: 96% on nasal cannula at 3 liters/minute. Temp: 98.3 F. Pain level now: 02/12. --22:08 Idalia Joseph R.N. Weight: 67.1 kg stated. Height/Length: 64 inches Per Patient. BMI: 25.4. --22:05 Idalia Joseph R.N. Medications Acetaminophen Oral 325 mg, 2x a day as needed. Albuterol Sulfate Oral, Q3-4H. Aspirin Oral (Tablet Chewable 81 mg). Bumetanide Oral 1 mg, 1 1/2 Q daily. BusPIRone HCl Oral (Tablet 7.5 mg) 1 tablet, BID. Carvedilol Oral (Tablet 3.125 mg) 1 tablet, Q12H. Combivent Respimat Inhalation (Aerosol Solution 20-100 mcg/act) QID. Diazepam Oral 2 mg, at bedtime. Digoxin Oral (Tablet 125 mcg) 1 tablet, daily. Ferrous Sulfate Oral 325 mg, 2x a day. Furosemide Oral 40 mg, daily. --22:07 Idalia Joseph R.N. Levothyroxine Sodium Oral (Tablet 50 mcg) 1 tablet, daily. Lisinopril Oral 5 mg, daily. Magnesium Oxide Oral (Tablet 400 mg) 1 tablet, BID. Metolazone Oral 2.5 mg, Q mornings: mon, wed, frid. Omeprazole Oral 40 mg, daily. OxyCODONE HCl Oral 5 mg, noon, 4pm and 2 tabs at bedtime. Potassium Chloride ER Oral (Capsule Extended Release 10 meq) 1 capsule, on mon, mon, monday. pramipexole 0.5mg x1 tab three times daily. Pravastatin Sodium Oral 20 mg, at bedtime. ProAir HFA Inhalation. Spiriva HandiHaler Inhalation (Capsule 18 mcg) 1 capsule, daily. Spironolactone Oral 25 mg. Symbicort Inhalation. Torsemide Oral 20 mg x2 tabs daily. Vitamin D. --22: Idalia Joseph R.N. Oxygen at 3L NC at home. --22: Idalia Joseph R.N. Allergies Ibuprofen. --: Idalia Joseph R.N. History Arrived by private vehicle. Historian: patient. Accompanied by daughter. Primary physician ([place]). The patient has had trouble walking and extremity pain. ( unable to walk at home due to pain, has been crawling to bathroom). SOCIAL HX: Former smoker. No alcohol use or drug use. --: Idalia Joseph R.N. PROBLEMS: Hepatitis [Active]. Anemia [Active]. Back Pain [Active]. Hypertension [Active]. --: Idalia Joseph R.N. GI Bleeding. Pneumonia. COPD - Chronic Obstructive Pulmonary Disease. Hypoxia. Asthma. Hypothyroidism. Lifestyle / Substance Problems. Headaches. Ovarian Cancer. Depression. Hypercholesterolemia. Restless Legs Syndrome. Congestive Heart Failure. Syncope. Dehydration. Hyperlipidemia. Cancer. Osteoporosis. Valvular Heart Disease. UTI - Urinary Tract Infection. Hyponatremia. Hypertension. Anxiety Reaction. Peptic Ulcer Disease. Myocardial Infarction. Coronary Artery Disease. Bronchitis. --: Idalia Joseph R.N. ADDITIONAL SURGERIES: Hysterectomy. Liver Lac repair. Shoulder Surgery. --: Idalia Joseph R.N. Interventions ID band on patient. To treatment room. --: Idalia Joseph R.N. PHYSICAL ASSESSMENT 21:50. To room via wheelchair. Patient gowned. GENERAL / NEURO / PSYCH: Alert. Oriented X 4. Appears in pain. RESPIRATORY: Respirations not labored. CVS: Capillary refill less than 2 seconds. EXTREMITIES: Limited ROM present. ( able to piviot and move from w/c to bed w assist). BACK: Limited ROM of the back. Soft tissue tenderness. --22:09 Idalia Joseph R.N. NURSING PROGRESS NOTES 21:50. Patient gowned. Head of bed elevated. Reassurance given. Patient identifiers checked. Call light placed in reach. Side rails up. Bed placed in lowest position. Patient ready for evaluation- chart flagged. --22:08 Idalia Joseph R.N. 22:40. Patient transported to radiology by stretcher with tech. --22:48 Idalia Joseph R.N. 22:43 12/14/2016 Zofran ODT (Ondansetron) PO Oral Disintegrating Tablets 4 mg given. Allergies verified and confirmed 5 rights. --22:50 Idalia Joseph R.N. 22:44 12/14/2016 Morphine (Morphine Sulfate (PF)) IM 4 mg given. Given in the left anterior lateral thigh. Sedative warning given to the patient. --22:49 Idalia Joseph R.N. late entry -22:20 RT here to do breathing tx. --23:22 Idalia Joseph R.N. 22:45. ( Daughter is going home,call us when we want her to come cloth picker pt). --22:50 Idalia Joseph R.N. 22:57. Patient returned from radiology by stretcher with tech. --23:21 Idalia Joseph R.N. 23:15 12/14/16. BP: 90/32. HR: 78. RR: 18. O2 saturation: 95% on nasal cannula at 3 liters/minute. Temp: deferred. Pain level now: 8/10. Additional comments: pt states nausea and breathing are better, but still c/o back pain still shooting down right leg- asking for more meds, ERMD notified . --23:24 Idalia Joseph R.N. 22:20 12/14/2016 Albuterol Neb TX Nebulizer 2.5 mg given. Given by the respiratory therapist. --23:24 Idalia Joseph R.N. Care transferred and report received. --23:37 Yoana Velazquez R.N. ( When this RN went in room to discharge patient, patient requested pain medication. ED MD notified and gave verbal order for morphine. Upon returning to the room, this RN noticed that patient's O2 sat was 80-85% on 2 Liters. Patient's O2 sat went up to 92-95% briefly and then dropped back to 80-85%. ED MD notified, morphine not administered.). --01:24 Kelle Ford R.N. DISPOSITION / DISCHARGE 00:34. No learning barriers present. Discharge instructions provided and reviewed with the patient. Reviewed warnings. Reviewed medication(s). Treatments reviewed. Reviewed referrals. Work note given. Patient verbalized understanding. Written instructions provided in Tunisian. The patient was discharged home. She left the Emergency Department in a wheelchair and via private vehicle. Family member driving. --00:45 Kelle Ford R.N. 00:32 12/15/16. BP: 127/83. HR: 76. RR: 20. O2 saturation: 84%. Temp: deferred. Pain level now: 01/12. --00:45 Kelle Ford R.N. Locked/Released at 12/15/2016 1:24 by Kelel Ford R.N.
--- NOTE | 2016-12-15 20:45 | ED MED RECONCILIATION SUMMARY ---
Patient: ROYCE HOLLEY Medication Reconciliation Report [facility] VisitID: [id number] [place] [address] 71y, F Registration Date/Time: 12/14/2016 Weight: 67.1 kg Height/Length: 64 in. BMI: 25.4 ALLERGIES: Ibuprofen The patient's Home Medications are listed below: CONTINUE TAKING THE FOLLOWING MEDICATIONS: Acetaminophen Oral 325 mg, 2x a day Albuterol Sulfate Oral, Q3-4H Aspirin Oral (81 mg) Bumetanide Oral 1 mg, 1 1/2 Q daily BusPIRone HCl Oral (7.5 mg) 1 tablet, BID Carvedilol Oral (3.125 mg) 1 tablet, Q12H Combivent Respimat Inhalation (20-100 mcg/act) QID Diazepam Oral 2 mg, at bedtime Digoxin Oral (125 mcg) 1 tablet, daily Ferrous Sulfate Oral 325 mg, 2x a day Furosemide Oral 40 mg, daily Levothyroxine Sodium Oral (50 mcg) 1 tablet, daily Lisinopril Oral 5 mg, daily Magnesium Oxide Oral (400 mg) 1 tablet, BID Metolazone Oral 2.5 mg, Q mornings: mon, mon, mond Omeprazole Oral 40 mg, daily OxyCODONE HCl Oral 5 mg, noon, 4pm and 2 tabs at bedtime Oxygen at 3L NC at home Potassium Chloride ER Oral (10 meq) 1 capsule, on mon, mon, monday pramipexole 0.5mg x1 tab three times daily Pravastatin Sodium Oral 20 mg, at bedtime ProAir HFA Inhalation Spiriva HandiHaler Inhalation (18 mcg) 1 capsule, daily Spironolactone Oral 25 mg Symbicort Inhalation Torsemide Oral 20 mg x2 tabs daily Vitamin D The source(s) of the original Home Medication information: Not obtained. The following Medications were given to the patient in the Emergency Department: Morphine [IM] IM 4 mg, administered: 12/14/2016 10:44:00 PM Zofran ODT [PO] PO 4 mg, administered: 12/14/2016 10:43:00 PM Albuterol [Neb Tx] Neb TX 2.5 mg, administered: 12/14/2016 10:20:00 PM The following Medications were prescribed to the patient: OxyIR 5 mg capsules: take 1 orally every 6 hours as needed for pain. Dispense fifteen (15). No refill. -- Cal Pinto Dr.
--- NOTE | 2016-12-15 20:45 | ED MAR SUMMARY ---
..... Medication Administration Record [facility] [address] [place] [address] Patient: ROYCE HOLLEY Visit ID: [id number] 71y, F Weight: 67.1 kg Height/Length: 64 in BMI: 25.4 ALLERGIES: Ibuprofen Given 22:20 12/14/2016 Idalia Joseph R.N. Medication Administered: ALBUTEROL [NEB TX], Dose: 2.5 mg Nebulizer Neb TX. Medication Ordered: Albuterol Neb Tx 2.5 mg (NOW). Given 22:43 12/14/2016 Idalia Joseph R.N. Medication Administered: ZOFRAN ODT [PO] (ONDANSETRON), Dose: 4 mg Oral Disintegrating Tablets PO. Medication Ordered: Zofran ODT PO 4 mg (NOW). Given 22:44 12/14/2016 Idalia Joseph RBrittonN. Medication Administered: MORPHINE [IM] (MORPHINE SULFATE (PF)), Dose: 4 mg IM. Medication Ordered: Morphine IM 4 mg (HIGH ALERT MEDICATION, NOW).
--- NOTE | 2016-12-15 20:45 | ED DISCHARGE INSTRUCTIONS ---
Patient: ROYCE HOLLEY General Instructions [facility] VisitID: [id number] [place] [address] 71y, F Registration Date/Time: 12/14/2016 Nontraumatic lumbar back pain associated with a compression fracture of L1, L2 and L5. INSTRUCTIONS No lifting greater than 5 lbs until released. Your Current Medications: CONTINUE TAKING THE FOLLOWING MEDICATIONS: Acetaminophen Oral : 325 mg 2x a day, prn. Albuterol Sulfate Oral : Q3-4H. Aspirin Oral : Tablet Chewable 81 mg. Bumetanide Oral : 1 mg 1 1/2 Q daily. BusPIRone HCl Oral : Tablet 7.5 mg, 1 tablet BID. Carvedilol Oral : Tablet 3.125 mg, 1 tablet Q12H. Combivent Respimat Inhalation : Aerosol Solution 20-100 mcg/act, QID. Diazepam Oral : 2 mg at bedtime. Digoxin Oral : Tablet 125 mcg, 1 tablet daily. Ferrous Sulfate Oral : 325 mg 2x a day. Furosemide Oral : 40 mg daily. Levothyroxine Sodium Oral : Tablet 50 mcg, 1 tablet daily. Lisinopril Oral : 5 mg daily. Magnesium Oxide Oral : Tablet 400 mg, 1 tablet BID. Metolazone Oral : 2.5 mg Q mornings: mon, mon, . Omeprazole Oral : 40 mg daily. OxyCODONE HCl Oral : 5 mg noon, 4pm and 2 tabs at bedtime. Oxygen at 3L NC at home*. Potassium Chloride ER Oral : Capsule Extended Release 10 meq, 1 capsule on mon, mon, monday. pramipexole 0.5mg x1 tab three times daily*. Pravastatin Sodium Oral : 20 mg at bedtime. ProAir HFA Inhalation. Spiriva HandiHaler Inhalation : Capsule 18 mcg, 1 capsule daily. Spironolactone Oral : 25 mg. Symbicort Inhalation. Torsemide Oral : 20 mg x2 tabs daily. Vitamin D*. Prescription Medications: OxyIR 5 mg capsules: take 1 orally every 6 hours as needed for pain. Dispense fifteen (15). No refill. Follow-up: Follow up with your doctor tomorrow. Call for an appointment. Blood pressure screening was not performed during this visit because the patient has an active diagnosis of hypertension. ADDITIONAL INFORMATION Sciatica Sciatica ("Lumbar Radiculopathy") causes a pain that spreads from the lower back down into the buttock, hip and leg. Sometimes leg pain can occur without any back pain. Sciatica is due to irritation or pressure on a spinal nerve as it comes out of the spinal canal. This is most often due to a bulge or rupture of a nearby spinal disk (the cartilage cushion between each spinal bone), which presses on a nearby nerve. Other causes include spinal stenosis (narrowing of the spinal canal) and spasm of the pyriform muscle (a muscle in the buttocks that the sciatic nerve passes through). Sciatica may begin after a sudden twisting/bending force (such as in a car accident), or sometimes after a simple awkward movement. In either case, muscle spasm is commonly present and contributes to the pain. The diagnosis of sciatica is made from the symptoms and physical exam. Unless you had a physical injury (such as a car accident or fall), X-rays are usually not ordered for the initial evaluation of sciatica because the nerves and disks cannot be seen on an x-ray. If signs of a compressed nerve are present (for example, loss of tendon reflex or strength in the leg), an MRI (magnetic resonance imaging) scan will need to be scheduled as an outpatient. Most sciatica (80-90%) gets better with medicine, exercise, physical therapy. If symptoms continue after at least three months of medical treatment, surgery may be considered. Home Care: You may need to stay in bed the first few days. But, as soon as possible, begin sitting or walking to avoid problems with prolonged bed rest. When in bed, try to find a position of comfort. A firm mattress is best. Try lying flat on your back with pillows under your knees. You can also try lying on your side with your knees bent up towards your chest and a pillow between your knees. Avoid prolonged sitting. This puts more stress on the lower back than standing or walking. Some persons find relief with heat (hot shower, hot bath or heating pad) and massage, while others prefer cold packs (crushed or cubed ice in a plastic bag, wrapped in a towel). Try both and use the method that feels best for 20 minutes several times a day. You may use acetaminophen (Tylenol) or ibuprofen (Motrin, Advil) to control pain, unless another pain medicine was prescribed. [ NOTE: If you have chronic liver or kidney disease or ever had a stomach ulcer or GI bleeding, talk with your doctor before using these medicines.] Be aware of safe lifting methods and do not lift anything over 15 pounds until all the pain is gone. Follow Up with your doctor or this facility if your symptoms do not start to improve after one week. Physical therapy or further testing may be needed. [NOTE: If X-rays were taken, they will be reviewed by a radiologist. You will be notified of any new findings that may affect your care.] Get Prompt Medical Attention if any of the following occur: Pain becomes worse, not controlled by the prescribed medicine Weakness or numbness in one or both legs Numbness in the groin, genital area Loss of bowel or bladder control Degenerative Disk Disease Spinal disks are gel-filled cushions between the bones of the spine (vertebrae). The disks act like shock absorbers. Over time, the disks may break down. This disorder is called degenerative disk disease (DDD). DDD can affect the neck or back. It is one of the most common causes of low back pain. It is the leading cause of disability in people under age 45 in the [place]. The pain usually remains localized to the lower back or neck. Muscle spasm is often present and adds to the pain. Disk degeneration is a natural part of aging, although it does not cause pain in most persons. It may also occur as a result of repeated minor injuries due to daily activities, sports, or accidents. It may lead to osteoarthritis of the spine. Back pain related to disk disease may come and go or become chronic and last for months or years. If the disk bulges or ruptures (also called slipped disk or herniated disk), it can put pressure on a nearby spinal nerve and cause neck or back pain that spreads down one arm or leg. X-rays or MRI (magnetic resonance imaging) scan may aid in the diagnosis. For acute pain, treatment consists of anti-inflammatory drugs, muscle relaxants, rest, ice, or heat. Narcotic pain medicines may be needed for short-term treatment of sudden worsening of pain. Due to their addictive potential, narcotics are not advised for long-term pain management. Other types of medicines are preferred. Surgery is usually not used to treat this condition unless there is a complication (such as nerve root compression). Home Care: FOR NECK PAIN: Use a comfortable pillow that supports the head and keeps the spine in a neutral position. The head should not be tilted forward or backward. FOR BACK PAIN: Avoid prolonged sitting. This puts more stress on the lower back than standing or walking. Establishing a regular exercise program to strengthen the supporting muscles of the spine will make it easier to live with DDD. During the first2 days after a flare-up of your pain, apply anice pack to the painful area for 20 minutes every 2-4 hours. This will reduce swelling and pain.Heat (hot shower, hot bath, or heating pad) works well for muscle spasm. You can start with ice, then switch to heat after2 days. Some patients feel best alternating ice and heat treatments. Use the method that feelsbest to you. You may use acetaminophen (Tylenol) or ibuprofen (Motrin, Advil) to control pain, unless another pain medicine was prescribed. [NOTE: If you have chronic liver or kidney disease or ever had a stomach ulcer or GI bleeding, talk with your doctor before using these medicines.] Follow Up with your physician, or as directed by our staff. [NOTE: If x-rays, a CT scan or an MRI scan were taken, they will be reviewed by a radiologist. You will be notified of any new findings that may affect your care.] Return Promptly or contact your doctor if any of the following occur: Increasing back pain New weakness, numbness, or pain in one or both arms or legs Foot drop (foot drags when you walk) Loss of bowel or bladder control Numbness or tingling in the buttock or groin area Unexplained fever over 100.4F (38.0C) You have been given the following additional information: Back Pain W/ Sciatica Degenerative Disk Disease No lifting greater than 5 lbs until released. (Electronically signed by Cal Pinto Dr. 12/15/2016 20:44)
--- NOTE | 2016-12-15 20:45 | ED MED RECONCILIATION SUMMARY ---
Patient: ROYCE HOLLEY Medication Reconciliation Report [facility] VisitID: [id number] [place] [address] 71y, F Registration Date/Time: 12/14/2016 Weight: 67.1 kg Height/Length: 64 in. BMI: 25.4 ALLERGIES: Ibuprofen The patient's Home Medications are listed below: CONTINUE TAKING THE FOLLOWING MEDICATIONS: Acetaminophen Oral 325 mg, 2x a day Albuterol Sulfate Oral, Q3-4H Aspirin Oral (81 mg) Bumetanide Oral 1 mg, 1 1/2 Q daily BusPIRone HCl Oral (7.5 mg) 1 tablet, BID Carvedilol Oral (3.125 mg) 1 tablet, Q12H Combivent Respimat Inhalation (20-100 mcg/act) QID Diazepam Oral 2 mg, at bedtime Digoxin Oral (125 mcg) 1 tablet, daily Ferrous Sulfate Oral 325 mg, 2x a day Furosemide Oral 40 mg, daily Levothyroxine Sodium Oral (50 mcg) 1 tablet, daily Lisinopril Oral 5 mg, daily Magnesium Oxide Oral (400 mg) 1 tablet, BID Metolazone Oral 2.5 mg, Q mornings: mon, mon, mond Omeprazole Oral 40 mg, daily OxyCODONE HCl Oral 5 mg, noon, 4pm and 2 tabs at bedtime Oxygen at 3L NC at home Potassium Chloride ER Oral (10 meq) 1 capsule, on mon, mon, monday pramipexole 0.5mg x1 tab three times daily Pravastatin Sodium Oral 20 mg, at bedtime ProAir HFA Inhalation Spiriva HandiHaler Inhalation (18 mcg) 1 capsule, daily Spironolactone Oral 25 mg Symbicort Inhalation Torsemide Oral 20 mg x2 tabs daily Vitamin D The source(s) of the original Home Medication information: Not obtained. The following Medications were given to the patient in the Emergency Department: Morphine [IM] IM 4 mg, administered: 12/14/2016 10:44:00 PM Zofran ODT [PO] PO 4 mg, administered: 12/14/2016 10:43:00 PM Albuterol [Neb Tx] Neb TX 2.5 mg, administered: 12/14/2016 10:20:00 PM The following Medications were prescribed to the patient: OxyIR 5 mg capsules: take 1 orally every 6 hours as needed for pain. Dispense fifteen (15). No refill. -- Cal Pinto Dr.
--- NOTE | 2016-12-15 20:45 | ED MAR SUMMARY ---
..... Medication Administration Record [facility] [address] [place] [address] Patient: ROYCE HOLLEY Visit ID: [id number] 71y, F Weight: 67.1 kg Height/Length: 64 in BMI: 25.4 ALLERGIES: Ibuprofen Given 22:20 12/14/2016 Idalia Joseph R.N. Medication Administered: ALBUTEROL [NEB TX], Dose: 2.5 mg Nebulizer Neb TX. Medication Ordered: Albuterol Neb Tx 2.5 mg (NOW). Given 22:43 12/14/2016 Idalia Joseph R.N. Medication Administered: ZOFRAN ODT [PO] (ONDANSETRON), Dose: 4 mg Oral Disintegrating Tablets PO. Medication Ordered: Zofran ODT PO 4 mg (NOW). Given 22:44 12/14/2016 Idalia Joseph RBrittonN. Medication Administered: MORPHINE [IM] (MORPHINE SULFATE (PF)), Dose: 4 mg IM. Medication Ordered: Morphine IM 4 mg (HIGH ALERT MEDICATION, NOW).
[2016-12-24] MEDS ORDERED: PRILOSEC20 MG PO (20:52)
[2016-12-24] MEDS ORDERED: STOOL SOFTENER100 M1 PO (20:55)
[2016-12-24] MEDS ORDERED: EQL VITAMIN PO (20:55)
== END 2016-12-15 00:34 | disposition home or self-care (01) ==
LOC: ED SRH 21:42
DX: S32.019A Unspecified fracture of first lumbar vertebra, initial encounter for closed fracture (principal); S32.029A Unspecified fracture of second lumbar vertebra, initial encounter for closed fracture; S32.059A Unspecified fracture of fifth lumbar vertebra, initial encounter for closed fracture; X50.9XXA Other and unspecified overexertion or strenuous movements or postures, initial encounter; Y93.9 Activity, unspecified; Y92.019 Unspecified place in single-family (private) house as the place of occurrence of the external cause; Y99.9 Unspecified external cause status; J44.9 Chronic obstructive pulmonary disease, unspecified; J45.909 Unspecified asthma, uncomplicated; E03.9 Hypothyroidism, unspecified